=== PATIENT | female | born 1940 | race Caucasian/White ===

== ENCOUNTER 2017-07-14 13:22 | Inpatient (IN) | payer MEDICARE, BC ==
[2017-07-14] VITALS (8 sets, daily range): BP systolic 106–155; BP diastolic 62–85; PULSE 95–126; RESP 20–26; TEMP 98.7; O2SAT 88–95
[~2017-07-14 13:22] MED LIST: ASPI81 PO; GLAUCOMA DROPS; LISI2.5T3 PO; LOVA10TA; PRED20 PO; RANI150 PO; ZYRT10TA12 PO
[2017-07-14] MEDS ORDERED: LOVA10TA PO (13:38)
[2017-07-14] MEDS ORDERED: ASPI-516 CHEW (13:38)
[2017-07-14] MEDS ORDERED: CHOL5000 PO (13:38)
--- NOTE | 2017-07-14 13:39 | PD ---
HPI Chief Complaint: Respiratory Symptoms Time Seen by Provider: 13:25 Travel History International Travel<30 days: No Contact w/Intl Traveler<30days: No Traveled to known affect area: No History of Present Illness HPI 76-year-old female is complaining of shortness of breath for the last 2-3 days. She does not recall having dyspnea before. She stopped smoking about a year ago. She has no history of congestive heart failure or coronary artery disease. She does take lovastatin and aspirin. He has been having pain in her right shoulder for the last 2 weeks. When asked to indicate the site of pain she actually indicates the right side of the trapezius muscle. She has a history of breast cancer several years ago that was treated with excision and radiation COUNT INCLUDES THE [facility] Past Medical History Cancer: Yes (LEFT BREAST) Diminished Hearing: No Past Surgical History Appendectomy: Yes Other Surgery: Yes (FOOT SURGERY) Social History Alcohol Use: Yes (RARE) Tobacco Use: No (QUIT 03/2009) Substance Use: No Allergies-Medications (Allergen,Severity, Reaction): Coded Allergies: No Known Allergies (Verified Adverse Reaction, Unknown, 07/14/17) Reported Meds & Prescriptions Reported Meds & Active Scripts Active Reported Vitamin D3 (Cholecalciferol) 5,000 Unit Cap 5,000 Units PO DAILY Aspirin 81 Mg Chew 81 Mg CHEW DAILY Lovastatin 10 Mg Tab Unknown Dose PO DAILY Review of Systems General / Constitutional: No: Fever, Chills Eyes: No: Diploplia, Drainage HENT: No: Headaches, Vertigo Cardiovascular: No: Chest Pain or Discomfort, Palpitations Respiratory: Positive: Shortness of Breath Gastrointestinal: No: Vomiting, Diarrhea Genitourinary: No: Urgency, Frequency Musculoskeletal: Positive: Myalgias, No: Arthralgias Skin: No Rash Neurologic: No: Weakness Endocrine: No: Heat Intolerance Hematologic/Lymphatic: No: Easy Bruising Physical Exam Narrative GENERAL: Well-developed female. Saturation is 90% on arrival SKIN: Focused skin assessment warm/dry. HEAD: Atraumatic. Normocephalic. EYES: Pupils equal and round. No scleral icterus. No injection or drainage. ENT: No nasal bleeding or discharge. Mucous membranes pink and moist. NECK: Trachea midline. No JVD. CARDIOVASCULAR: Regular rate and rhythm. No murmur appreciated. RESPIRATORY: No accessory muscle use. Clear to auscultation. Breath sounds equal bilaterally. GASTROINTESTINAL: Abdomen soft, non-tender, nondistended. Hepatic and splenic margins not palpable. MUSCULOSKELETAL: No obvious deformities. No clubbing. No cyanosis. No edema. NEUROLOGICAL: Awake and alert. No obvious cranial nerve deficits. Motor grossly within normal limits. Normal speech. PSYCHIATRIC: Appropriate mood and affect; insight and judgment normal. Data Data Last Documented VS Vital Signs Date Time Temp Pulse Resp B/P (MAP) Pulse Ox O2 Delivery O2 Flow Rate FiO2 07/14/17 14:25 115 22 106/62 (77) 94 Nasal Cannula 2.00 07/14/17 13:33 98.7 Orders Orders Complete Blood Count With Diff (07/14/17 13:34) Comprehensive Metabolic Panel (07/14/17 13:34) Troponin I (07/14/17 13:34) B-Type Natriuretic Peptide (07/14/17 13:34) Prothrombin Time / Inr (Pt) (07/14/17 13:34) Act Partial Throm Time (Ptt) (07/14/17 13:34) Urinalysis - C+S If Indicated (07/14/17 13:34) Chest, Single Ap (07/14/17 13:34) Albuterol-Ipratropium Neb (Duoneb Neb) (07/14/17 13:45) Admit Order (Ed Use Only) (07/14/17 14:29) Labs Laboratory Tests Test 07/14/17 13:50 White Blood Count 12.8 TH/MM3 Red Blood Count 3.93 MIL/MM3 Hemoglobin 10.2 GM/DL Hematocrit 31.9 % Mean Corpuscular Volume 81.2 FL Mean Corpuscular Hemoglobin 26.0 PG Mean Corpuscular Hemoglobin Concent 31.9 % Red Cell Distribution Width 13.7 % Platelet Count 445 TH/MM3 Mean Platelet Volume 7.6 FL Neutrophils (%) (Auto) 84.4 % Lymphocytes (%) (Auto) 7.3 % Monocytes (%) (Auto) 5.8 % Eosinophils (%) (Auto) 0.3 % Basophils (%) (Auto) 2.2 % Neutrophils # (Auto) 10.9 TH/MM3 Lymphocytes # (Auto) 0.9 TH/MM3 Monocytes # (Auto) 0.7 TH/MM3 Eosinophils # (Auto) 0.0 TH/MM3 Basophils # (Auto) 0.3 TH/MM3 CBC Comment DIFF FINAL Differential Comment Prothrombin Time 10.8 SEC Prothromb Time International Ratio 1.1 RATIO Activated Partial Thromboplast Time 25.4 SEC Blood Urea Nitrogen 8 MG/DL Creatinine 0.51 MG/DL Random Glucose 293 MG/DL Total Protein 7.6 GM/DL Albumin 2.5 GM/DL Calcium Level 9.2 MG/DL Alkaline Phosphatase 118 U/L Aspartate Amino Transf (AST/SGOT) 11 U/L Alanine Aminotransferase (ALT/SGPT) 28 U/L Total Bilirubin 0.2 MG/DL Sodium Level 133 MEQ/L Potassium Level 3.4 MEQ/L Chloride Level 92 MEQ/L Carbon Dioxide Level 35.6 MEQ/L Anion Gap 5 MEQ/L Estimat Glomerular Filtration Rate 118 ML/MIN Troponin I 0.04 NG/ML [facility] Medical Decision Making Medical Screen Exam Complete: Yes Emergency Medical Condition: Yes Medical Record Reviewed: Yes Differential Diagnosis Differential includes pneumonia, CHF, COPD exacerbation Narrative Course Chest x-ray shows a large mass in the right side of the chest adjacent to the trachea which measures 10 x 7 cm. There is deviation of the trachea to the left. Patient requires CT to further characterize this mass. At this time our CT is not functional. The patient will need to be admitted for treatment of her dyspnea and further evaluation of this lung mass. She will be transferred to [facility] Diagnosis Primary Impression: Lung mass Additional Impression: Dyspnea Admitting Information Admitting Physician Requests: Admit Nick Kan MD Jul 14, 2017 13:39
[2017-07-14] MEDS ORDERED: RESP: ALBUTEROL 2.5 MG/IPRATROPIUM 0.5 MG NEB (SCH) NEB ONE (13:45)
[2017-07-14 14:03] LABS: AUTOMATED NEUTROPHIL # 10.9 TH/MM3 (1.8-7.7); BASOPHIL # 0.3 TH/MM3 (0-0.2); BASOPHIL % 2.2 % (0.0-2.0); EOSINOPHIL % 0.3 % (0.0-4.0); HEMATOCRIT 31.9 % (35.0-46.0); HEMOGLOBIN 10.2 GM/DL (11.6-15.3); LYMPH % 7.3 % (9.0-44.0); LYMPHOCYTE # 0.9 TH/MM3 (1.0-4.8); MEAN CELL VOLUME 81.2 FL (80.0-100.0); MEAN CORPUSCULAR HGB CONC 31.9 % (32.0-36.0); MEAN PLATELET VOLUME 7.6 FL (7.0-11.0); MONO % 5.8 % (0.0-8.0); MONOCYTE # 0.7 TH/MM3 (0-0.9); NEUT % 84.4 % (16.0-70.0); PLATELET COUNT 445 TH/MM3 (150-450); RED BLOOD COUNT 3.93 MIL/MM3 (4.00-5.30); RED CELL DISTRIBUTION WIDTH 13.7 % (11.6-17.2); WHITE BLOOD COUNT 12.8 TH/MM3 (4.0-11.0)
--- NOTE | 2017-07-14 14:15 | RADRPT ---
EXAM DATE/TIME: 07/14/2017 13:43 [facility] COMPARISON: No previous studies available for comparison. INDICATIONS : Short of breath MEDICAL HISTORY : Carcinoma, breast. SURGICAL HISTORY : Left clavicle hardware ENCOUNTER: Initial ACUITY: 3 days PAIN SCORE: 1/10 LOCATION: Bilateral chest FINDINGS: Study is abnormal with enlarged soft tissue mass right chest with adjacent one centimeter lung nodule . Left lung is clear. The heart and pulmonary vascularity are normal. The portion of the bony skelet on visualized is unremarkable. CONCLUSION: Mass right chest measures approximately 10 cm x [address] scan of the chest with contrast is suggested Benito Villa MD FACR on July 14, 2017 at 14:11 Board Certified Radiologist. This report was verified electronically.
[2017-07-14 14:18] LABS: CHLORIDE 92 MEQ/L (98-107); SODIUM (NA) 133 MEQ/L (136-145)
[2017-07-14 14:21] LABS: CALCIUM 9.2 MG/DL (8.5-10.1)
[2017-07-14 14:22] LABS: ALBUMIN 2.5 GM/DL (3.4-5.0); BICARBONATE 35.6 MEQ/L (21.0-32.0); BLOOD UREA NITROGEN 8 MG/DL (7-18); GLUCOSE,RANDOM 293 MG/DL (74-106)
[2017-07-14 14:24] LABS: INTERNATIONAL NORMALIZED RATIO 1.1 RATIO; PROTHROMBIN TIME - PATIENT 10.8 SEC (9.8-11.6)
[2017-07-14 14:25] LABS: ALT (GPT) 28 U/L (10-53); AST (GOT) 11 U/L (15-37); CREATININE 0.51 MG/DL (0.50-1.00); GLOMERULAR FILTRATION RATE 118 ML/MIN (>89)
[2017-07-14 14:26] LABS: TOTAL BILIRUBIN ADULT 0.2 MG/DL (0.2-1.0)
[2017-07-14 14:27] LABS: TOTAL PROTEIN 7.6 GM/DL (6.4-8.2)
[2017-07-14 14:28] LABS: ALKALINE PHOSPHATASE 118 U/L (45-117)
[2017-07-14 14:30] LABS: TROPONIN I 0.04 NG/ML (0.02-0.05)
[2017-07-14] MEDS ORDERED: ONDANSETRON HCL 4 MG/2 ML VIAL IVP PRN (16:30)
[2017-07-14] MEDS ORDERED: NALOXONE HCL 0.4 MG/ML AMP IV PUSH PRN (16:30)
[2017-07-14] MEDS: SODIUM CHLORIDE 0.9% FLUSH 10 ML FLUSH IV FLUSH SCH (21:23)
[2017-07-14 23:05] LABS: BILIRUBIN, URINE NEG (NEG); BLOOD, URINE SMALL (NEG); GLUCOSE,URINE 100 mg/dL (NEG); KETONE, URINE NEG (NEG); NITRITE,URINE POS (NEG); PH, URINE 5.5 (5.0-8.5); URINE COLOR YELLOW (YELLW/STRAW); URINE LEUKOCYTE ESTERASE MOD (NEG)
[2017-07-14 23:12] LABS: BACTERIA, URINE MANY /hpf; RBC, URINE 0-3 /hpf (0-3); SQUAMOUS EPITHELIAL CELL URINE > 8 /hpf (0-5); WBC, URINE 100-200 /hpf (0-5)
[2017-07-14 23:13] LABS: MUCUS URINE MOD /lpf (OCC)
[2017-07-15] VITALS (10 sets, daily range): BP systolic 113–159; BP diastolic 59–80; PULSE 110–126; RESP 17–20; TEMP 98–100; O2SAT 76–95
--- NOTE | 2017-07-15 01:47 | RADRPT ---
EXAM DATE/TIME: 07/15/2017 00:48 [facility] COMPARISON: CHEST SINGLE AP, July 14, 2017, 13:43. INDICATIONS : Abnormal chest xray. Mass. Shortness of breath. RADIATION DOSE: 18.39 CTDIvol (mGy) MEDICAL HISTORY : Carcinoma, breast. SURGICAL HISTORY : left clavicle ENCOUNTER: Initial ACUITY: 1 day PAIN SCALE: 7/10 LOCATION: Right chest TECHNIQUE: Volumetric scanning of the chest was performed. Using automated exposure control and adjustment of t he mA and/or kV according to patient size, radiation dose was kept as low as reasonably achievable to obtain optimal diagnostic quality images. DICOM format image data is available electronically for r eview and comparison. Follow-up recommendations for detected pulmonary nodules are based at a minimum on nodule size and pa tient risk factors according to Fleischner Society Guidelines. FINDINGS: The examination is abnormal demonstrating a large mass in the medial upper right lung measuring 10.0 x 5.5 cm. Examination performed without contrast and there is loss of delineation between the mass i n the right pulmonary artery. The mass appears to extend into the superior mediastinum. There is al so a pretracheal mass which measures 4.3 cm in superior/inferior extent and 3.2 cm in oblique dimensi on probably representing a mediastinal lymph node. There is a small right pleural effusion. In the left lung, there are a few small subpleural cysts. Wide windows for bony detail demonstrate the osse ous structures are grossly intact without evidence of lytic or sclerotic lesions. CONCLUSION: Right upper lung mass measures in excess of 10 cm and is highly suspicious for malignancy. There is also a 4 cm pretracheal mediastinal mass. Sravan Blanco MD on July 15, 2017 at 1:42 Board Certified Radiologist. This report was verified electronically.
[2017-07-15] MEDS: SODIUM CHLORIDE 0.9% FLUSH 10 ML FLUSH IV FLUSH PRN (03:51)
[2017-07-15] MEDS: RESP: ALBUTEROL 2.5 MG/IPRATROPIUM 0.5 MG NEB (PRN) NEB (04:25)
[2017-07-15 06:55] LABS: AUTOMATED NEUTROPHIL # 9.5 TH/MM3 (1.8-7.7); BASOPHIL % 0.1 % (0.0-2.0); EOSINOPHIL % 0.4 % (0.0-4.0); HEMATOCRIT 30.7 % (35.0-46.0); HEMOGLOBIN 9.8 GM/DL (11.6-15.3); LYMPH % 6.9 % (9.0-44.0); LYMPHOCYTE # 0.8 TH/MM3 (1.0-4.8); MEAN CELL VOLUME 81.6 FL (80.0-100.0); MEAN CORPUSCULAR HEMOGLOBIN 25.9 PG (27.0-34.0); MEAN CORPUSCULAR HGB CONC 31.8 % (32.0-36.0); MEAN PLATELET VOLUME 7.5 FL (7.0-11.0); MONO % 9.2 % (0.0-8.0); NEUT % 83.4 % (16.0-70.0); PLATELET COUNT 445 TH/MM3 (150-450); RED BLOOD COUNT 3.77 MIL/MM3 (4.00-5.30); RED CELL DISTRIBUTION WIDTH 14.2 % (11.6-17.2); WHITE BLOOD COUNT 11.3 TH/MM3 (4.0-11.0)
[2017-07-15 07:04] LABS: CALCIUM 8.9 MG/DL (8.5-10.1)
[2017-07-15 07:05] LABS: BICARBONATE 36.4 MEQ/L (21.0-32.0)
[2017-07-15 07:08] LABS: CREATININE 0.47 MG/DL (0.50-1.00)
--- NOTE | 2017-07-15 10:08 | HHI.HP ---
HPI Service [facility] Primary Care Physician Non-Staff Admission Diagnosis LUNG MASS, DYSPNEA Diagnoses: (1) Dyspnea (2) Lung mass Chief Complaint: Shortness of breath Travel History International Travel<30 Days: No Contact w/Intl Traveler <30 Da: No Traveled to Known Affected Are: No History of Present Illness This is a pleasant 76-year-old female patient with a known medical history of left breast cancer with radiation and lumpectomy who presented to the ED with complaints of shortness of breath for the last 3 days. Patient states that she has actually had right shoulder pain for the past few weeks, has been seeing a chiropractor and getting adjustments with no relief of pain. She also states that over the past few days she has developed a productive cough with white/ yellow phlegm and increasing dyspnea with activity. Patient does not use oxygen at home. Patient denies any recent illness including fever, chills, abdominal pain, nausea, vomiting, diarrhea dysuria. Patient and her are down here visiting from [place], patient last saw her PCP in February with no reports of any medication changes. Patient does admit to a history of left breast cancer with radiation and lumpectomy 10 years ago. Patient no longer follows with oncologist. Denies any current tobacco use, states she quit roughly a year ago. Review of Systems Constitutional: DENIES: Fever, Chills Eyes: DENIES: Blurred vision, Diplopia Respiratory: COMPLAINS OF: Cough, Sputum production, Shortness of breath Cardiovascular: DENIES: Chest pain, Palpitations Gastrointestinal: DENIES: Abdominal pain, Black stools, Bloody stools, Constipation, Diarrhea, Nausea, Vomiting Musculoskeletal: COMPLAINS OF: Joint pain (Right shoulder) Neurologic: DENIES: Abnormal gait Psychiatric: COMPLAINS OF: Anxiety Except as stated in HPI: all other systems reviewed are Neg Past Family Social History Past Medical History Left breast cancer with radiation lumpectomy. Hyperlipidemia Borderline diabetes Past Surgical History Appendectomy Multiple unspecified left foot surgeries Multiple left elbow surgeries Reported Medications Active Reported Vitamin D3 (Cholecalciferol) 5,000 Unit Cap 5,000 Units PO DAILY Aspirin 81 Mg Chew 81 Mg CHEW DAILY Lovastatin 10 Mg Tab Unknown Dose PO DAILY Allergies: Coded Allergies: No Known Allergies (Verified Allergy, Unknown, 07/14/17) Active Ordered Medications Current Medications Medications (Trade) Dose Ordered Sig/Jennifer Route Start Time Stop Time Status Last Admin (NS Flush) 2 ml UNSCH PRN IV FLUSH 07/14/17 16:30 07/15/17 03:51 (NS Flush) 2 ml BID IV FLUSH 07/14/17 21:00 07/14/17 21:23 (Zofran Inj) 4 mg Q6H PRN IVP 07/14/17 16:30 (Narcan Inj) 0.4 mg UNSCH PRN IV PUSH 07/14/17 16:30 (Duoneb Neb) 1 ampule Q2HR NEB PRN NEB 07/14/17 17:45 07/15/17 04:25 (Vitamin D3) 5,000 units DAILY PO 07/15/17 10:00 Ceftriaxone Sodium 1000 mg/ Sodium Chloride 100 ml @ 200 mls/hr Q24H IV 07/15/17 10:00 Family History Mother has a history of breast cancer. Social History Patient denies any tobacco use, states she quit 1 year ago. Admits to rare alcohol use. Denies illicit drug use. Physical Exam Vital Signs Vital Signs Date Time Temp Pulse Resp B/P (MAP) Pulse Ox O2 Delivery O2 Flow Rate FiO2 07/15/17 08:35 92 Nasal Cannula 6.00 07/15/17 08:00 98.9 121 19 159/78 (105) 90 07/15/17 07:59 90 Nasal Cannula 6.00 07/15/17 07:50 76 21 07/15/17 04:33 98.1 118 17 120/60 (80) 93 07/15/17 03:00 07/15/17 02:55 122 18 153/80 (104) 92 Nasal Cannula 2.00 07/15/17 00:00 99.7 121 20 146/80 (102) 94 Nasal Cannula 2.00 07/15/17 00:00 121 18 94 Nasal Cannula 2.00 07/14/17 21:05 117 20 155/85 (108) 91 Nasal Cannula 2.00 07/14/17 21:05 117 20 91 Nasal Cannula 2.00 07/14/17 19:10 94 Nasal Cannula 2.00 07/14/17 17:54 112 20 135/77 (96) 93 Nasal Cannula 2.00 07/14/17 17:03 112 20 140/80 (100) 90 Nasal Cannula 2.00 07/14/17 15:52 95 20 117/78 (91) 95 07/14/17 15:20 110 20 131/73 (92) 93 Nasal Cannula 2.00 07/14/17 14:25 115 22 106/62 (77) 94 Nasal Cannula 2.00 07/14/17 13:33 98.7 126 26 135/73 (93) 88 Physical Exam GENERAL: Well-developed, well-nourished patient in NAD. On supplemental O2. SKIN: Warm and dry. No rash. HEAD: Normocephalic. Atraumatic. EYES: Pupils equal and round. No scleral icterus. No injection or drainage. ENT: No nasal bleeding or discharge. Mucous membranes pink and moist. NECK: Supple. Trachea midline. CARDIOVASCULAR: Regular rate and rhythm. S1, S2 noted. No murmur appreciated. RESPIRATORY: No accessory muscle use. Clear to auscultation. Breath sounds equal bilaterally. GASTROINTESTINAL: Abdomen soft, non-tender, nondistended. Normoactive bowel sounds x4. MUSCULOSKELETAL: No obvious deformities. Extremities without clubbing, cyanosis , or edema. Right shoulder tenderness to palpation. NEUROLOGICAL: Awake and alert. No obvious cranial nerve deficits. Motor grossly within normal limits. 5/5 muscle strength in bilateral upper and lower extremities. Normal speech. PSYCHIATRIC: Appropriate mood and affect; insight and judgment normal. Laboratory Laboratory Tests Test 07/14/17 13:50 07/14/17 17:50 07/14/17 22:50 07/15/17 06:22 White Blood Count 12.8 Red Blood Count 3.93 Hemoglobin 10.2 Hematocrit 31.9 Mean Corpuscular Volume 81.2 Mean Corpuscular Hemoglobin 26.0 Mean Corpuscular Hemoglobin Concent 31.9 Red Cell Distribution Width 13.7 Platelet Count 445 Mean Platelet Volume 7.6 Neutrophils (%) (Auto) 84.4 Lymphocytes (%) (Auto) 7.3 Monocytes (%) (Auto) 5.8 Eosinophils (%) (Auto) 0.3 Basophils (%) (Auto) 2.2 Neutrophils # (Auto) 10.9 Lymphocytes # (Auto) 0.9 Monocytes # (Auto) 0.7 Eosinophils # (Auto) 0.0 Basophils # (Auto) 0.3 CBC Comment DIFF FINAL Differential Comment Prothrombin Time 10.8 Prothromb Time International Ratio 1.1 Activated Partial Thromboplast Time 25.4 Blood Urea Nitrogen 8 7 Creatinine 0.51 0.47 Random Glucose 293 304 Total Protein 7.6 Albumin 2.5 Calcium Level 9.2 8.9 Alkaline Phosphatase 118 Aspartate Amino Transf (AST/SGOT) 11 Alanine Aminotransferase (ALT/SGPT) 28 Total Bilirubin 0.2 Sodium Level 133 133 Potassium Level 3.4 3.4 Chloride Level 92 91 Carbon Dioxide Level 35.6 36.4 Anion Gap 5 6 Estimat Glomerular Filtration Rate 118 130 Troponin I 0.04 B-Type Natriuretic Peptide 400 Blood Gas Puncture Site LT RADIAL Blood Gas Patient Temperature 98.6 Blood Gas HCO3 35 Blood Gas Base Excess 10.8 Blood Gas Oxygen Saturation 88 Arterial Blood pH 7.48 Arterial Blood Partial Pressure CO2 47 Arterial Blood Partial Pressure O2 58 Arterial Blood Oxygen Content 12.9 Arterial Blood Carboxyhemoglobin 2.0 Arterial Blood Methemoglobin 0.8 Blood Gas Hemoglobin 10.4 Oxygen Delivery Device NONE Blood Gas Inspired Oxygen 21 Urine Color YELLOW Urine Turbidity CLOUDY Urine pH 5.5 Urine Specific [place] GREATER/EQUAL 1.030 Urine Protein TRACE Urine Glucose (UA) 100 Urine Ketones NEG Urine Occult Blood SMALL Urine Nitrite POS Urine Bilirubin NEG Urine Urobilinogen 0.2 Urine Leukocyte Esterase MOD Urine RBC 0-3 Urine WBC 100-200 Urine Squamous Epithelial Cells > 8 Urine Bacteria MANY Urine Mucus MOD Microscopic Urinalysis Comment CULTURE INDICATED Test 07/15/17 08:45 White Blood Count 11.3 Red Blood Count 3.77 Hemoglobin 9.8 Hematocrit 30.7 Mean Corpuscular Volume 81.6 Mean Corpuscular Hemoglobin 25.9 Mean Corpuscular Hemoglobin Concent 31.8 Red Cell Distribution Width 14.2 Platelet Count 445 Mean Platelet Volume 7.5 Neutrophils (%) (Auto) 83.4 Lymphocytes (%) (Auto) 6.9 Monocytes (%) (Auto) 9.2 Eosinophils (%) (Auto) 0.4 Basophils (%) (Auto) 0.1 Neutrophils # (Auto) 9.5 Lymphocytes # (Auto) 0.8 Monocytes # (Auto) 1.0 Eosinophils # (Auto) 0.0 Basophils # (Auto) 0.0 CBC Comment DIFF FINAL Differential Comment Date/Time Source Procedure Growth Status 07/14/17 22:50 Urine Clean Catch Urine Culture Pending Received Result Diagram: 07/15/17 0845 07/15/17 0622 Imaging Last Impressions Chest CT 07/15/17 0000 Signed Impressions: Service Date/Time: Saturday, July 15, 2017 00:48 - CONCLUSION: Right upper lung mass measures in excess of 10 cm and is highly suspicious for malignancy. There is also a 4 cm pretracheal mediastinal mass. Sravan Blanco MD Chest X-Ray 07/14/17 1334 Signed Impressions: Service Date/Time: Friday, July 14, 2017 13:43 - CONCLUSION: Mass right chest measures approximately 10 cm x [address] scan of the chest with contrast is suggested Benito Villa MD FACR Septic Shock Reassessment Septic shock perfusion: reassessment completed Caprini VTE Risk Assessment Caprini VTE Risk Assessment: Mod/High Risk (score >= 2) Caprini Risk Assessment Model Point Value = 1 Point Value = 2 Point Value = 3 Point Value = 5 Age 41-60 Minor surgery BMI > 25 kg/m2 Swollen legs Varicose veins or History of unexplained or recurrent spontaneous Oral contraceptives or hormone replacement Sepsis (< 1 month) Serious lung disease, including pneumonia (< 1 month) Abnormal pulmonary function Acute myocardial infarction Congestive heart failure (< 1 month) History of inflammatory bowel disease Medical patient at bed rest Age 61-74 Arthroscopic surgery Major open surgery (> 45 min) Laparoscopic surgery (> 45 min) Malignancy Confined to bed (> 72 hours) Immobilizing plaster cast Central venous access Age >= 75 History of VTE Family history of VTE Factor V Leiden Prothrombin [id number] Lupus anticoagulant Anticardiolipin antibodies Elevated serum homocysteine Heparin-induced thrombocytopenia Other congenital or acquired thrombophilia Stroke (< 1 month) Elective arthroplasty Hip, pelvis, or leg fracture Acute spinal cord injury (< 1 month) Prophylaxis Regimen Total Risk Factor Score Risk Level Prophylaxis Regimen 0-1 Low Early ambulation 2 Moderate Order ONE of the following: *Sequential Compression Device (SCD) *Heparin 5000 units SQ BID 3-4 Higher Order ONE of the following medications: *Heparin 5000 units SQ TID *Enoxaparin/Lovenox 40 mg SQ daily (WT < 150 kg, CrCl > 30 mL/min) *Enoxaparin/Lovenox 30 mg SQ daily (WT < 150 kg, CrCl > 10-29 mL/min) *Enoxaparin/Lovenox 30 mg SQ BID (WT < 150 kg, CrCl > 30 mL/min) AND/OR *Sequential Compression Device (SCD) 5 or more Highest Order ONE of the following medications: *Heparin 5000 units SQ TID (Preferred with Epidurals) *Enoxaparin/Lovenox 40 mg SQ daily (WT < 150 kg, CrCl > 30 mL/min) *Enoxaparin/Lovenox 30 mg SQ daily (WT < 150 kg, CrCl > 10-29 mL/min) *Enoxaparin/Lovenox 30 mg SQ BID (WT < 150 kg, CrCl > 30 mL/min) AND *Sequential Compression Device (SCD) Assessment and Plan Problem List: (1) Dyspnea ICD Code: R06.00 - Dyspnea, unspecified Status: Acute (2) Lung mass ICD Code: R91.8 - Other nonspecific abnormal finding of lung field Status: Acute Assessment and Plan This is a pleasant 76-year-old female patient with a known medical history of left breast cancer with radiation and lumpectomy who presented to the ED with complaints of shortness of breath for the last 3 days. Right lung mass highly suspicious for malignancy with associated dyspnea and hypoxia Chest x-ray and chest CT reviewed showing right upper lung mass measuring greater than 10 cm, highly suspicious for malignancy. Also a 4 cm pretracheal mediastinal mass noted. Pulmonology consulted, appreciate input recommendations. IR consulted for CT guided lung biopsy. Consult placed to medical oncology, appreciate input recommendations. Supplemental O2 as needed. Patient requiring nasal cannula 6 L at this time. Duo nebs as needed for dyspnea. Supportive care. Abnormal UA: With moderate amount of leukocyte esterase and white blood cells. Await urine culture. Continue IV Rocephin for now. Hypokalemia: Potassium 3.4. Replacement ordered. Continue to monitor BMP. Elevated random glucose on presentation: 304. Patient does report a history of borderline diabetes. hemoglobin A1c ordered and pending. Follow. DVT prophylaxis: SCDs. Linda Lambert Jul 15, 2017 10:08
--- NOTE | 2017-07-15 11:58 | MB ---
cc: Brady Shah MD DATE OF CONSULT: 07/15/2017 REQUESTING PHYSICIAN: Dr. Lew. REASON FOR CONSULTATION: Evaluate for lung mass. HISTORY OF PRESENT ILLNESS: Ms. Leon is a pleasant 76-year-old female from [place] who comes over here for the winter. She has been having pain in the right shoulder for the last 1 month or so. She saw some chiropractor, had some procedure done, did not make any difference. She was also complaining of shortness of breath for the last 2-3 days. That is why she decided to come to the emergency room. She denies any cough or sputum production. No fever, chills. No night sweats, no hemoptysis. She does admit to losing some weight recently because of her poor appetite with this. When she came to the hospital, she had a CT scan of the chest done, which shows that she has a large mass in the right upper lobe measuring about 10 x 5.5 cm. She also has a pretracheal mass, which measures 4.3 cm. LABORATORY DATA: CBC showed WBC count 11.3, hemoglobin 9.8, hematocrit 30.7, MCV 81, platelet count 445. Sodium 133, potassium 3.4, chloride 91, CO2 36, BUN 7, creatinine 0.47. INR is 1.1. PAST MEDICAL HISTORY: Significant for history of CA of the breast, status post lumpectomy and she took radiation treatment in this area. Since then, she took tamoxifen for 5 years. Her radiation treatment was around 2008. MEDICATIONS: She is currently taking Rocephin 1 g a day, albuterol and Atrovent nebulizer treatments, Zofran p.r.n. ALLERGIES: NO KNOWN DRUG ALLERGIES. SOCIAL HISTORY: She has a history of smoking for more than 30 years, 1 pack a day, which she quit. She drinks socially. She used to work before. She is retired. FAMILY HISTORY: She is . She has 2 children. REVIEW OF SYSTEMS: Normally she is apparently active. Recently lost some weight. No hemoptysis. Known asthma, COPD, emphysema. No DVT, pulmonary embolism. PHYSICAL EXAMINATION: Well-built, well-nourished, elderly female, not in acute distress. Blood pressure 159/78, heart rate 120, respirations 20, temperature 98.9. HEENT: Pupils are equal and reactive to light. Oral mucosa, nasal mucosa normal. NECK: Supple. JVD not raised. CHEST: Good breath sounds bilaterally. She has no rhonchus. CARDIOVASCULAR: S1, S2 normal. ABDOMEN: Benign. EXTREMITIES: No edema. IMPRESSION: 1. Large right upper lobe mass. 2. Pretracheal lymph node. 3. Right shoulder pain. 4. History of nicotine use. 5. Carcinoma of the breast, status post lumpectomy and radiation treatment. PLAN: I discussed with the patient she will need a CT-guided biopsy. Earlier, she was thinking going back to [place] and have the workup done. Now, she agrees to have CT Guided lung biopsy done over there. I explained to her procedure and the complications. She understands well and wants to proceed with it. I will consult interventional radiology for CT-guided biopsy. Thank you, Dr. Lew, for this consult. MD KARON Mayer/BIENVENIDO , 11:25 AM , 11:57 AM VINAY
[2017-07-15] MEDS ORDERED: POTASSIUM CHLORIDE 10 MEQ CONTROLLED RELEASE TAB PO ONE (12:00)
[2017-07-15] MEDS: cefTRIAXone INJ 1,000 MG in SODIUM CHLORIDE 0.9% INJ 100 ML IV SCH (12:12)
[2017-07-15] MEDS: SODIUM CHLORIDE 0.9% FLUSH 10 ML FLUSH IV FLUSH SCH ×2 (12:12→22:09)
[2017-07-15] MEDS: CHOLECALCIFEROL (VIT D3) 5000 UNIT CAP PO SCH (12:12)
[2017-07-15] MEDS ORDERED: GLUCAGON 1 MG/ML VIAL OTHER PRN (12:15)
[2017-07-15] MEDS ORDERED: DEXTROSE 50% IN WATER 50 ML VIAL(D50) IV PUSH PRN (12:15)
--- NOTE | 2017-07-15 16:07 | EKG ---
Date Performed: 07/14/2017 Time Performed: 13:28:44 PTAGE: 76 years EKG: SINUS TACHYCARDIA POSSIBLE LEFT ATRIAL ENLARGEMENT NONSPECIFIC T-WAVE ABNORMALITY ABNORMAL RHYTHM ECG NO PREVIOUS TRACING DOCTOR: Flash Keenan Interpretating Date/Time 07/15/2017 16:05:51
--- NOTE | 2017-07-15 16:17 | PD.RAD ---
Radiology Note IR consulted for biopsy of larg RUL mass. IR team arrived to perform procedure but patient has not been NPO. Will reschedule for tomorrow Francisco Melchor MD Jul 15, 2017 16:16
[2017-07-15 16:36] LABS: HEMOGLOBIN A1C 11.6 % (4.3-6.0)
--- NOTE | 2017-07-15 18:42 | MB ---
cc: Kathryn Omalley MD,Linda KUHN DATE OF CONSULT: 07/15/2017 REFERRING PHYSICIAN: BAM Horton CHIEF COMPLAINT: Linda Lambert requested consultation for Mr. Leon with suspected second primary bronchogenic carcinoma. HISTORY OF PRESENT ILLNESS: Ms. Leon is a 76-year-old woman with history of glaucoma, hypertension, hypercholesterolemia. She has a history of ductal carcinoma in situ of the left breast. She was initially diagnosed 02/17/2009. She had definitive surgery, 03/03/2009. Dr. Leger proceeded to give her radiation while she was wintering in [place] in March 2009. She has been followed by a medical oncologist [place]. She has had no evidence of recurrent disease. She was doing well, but developed a trapezius-type pain. She thought she pulled a muscle. She presented to the emergency room finally on 07/14/2017, when she became short of breath, worsening over the last 2-3 days. She has a history of smoking. She denies any history of coronary artery disease. She still has pain in the right trapezius area. IMAGING STUDIES: CT scan of the chest was performed on 07/15/2017, that showed a right upper lung mass measuring greater than 10 cm, suspicious for malignancy. There is a 4 cm pretracheal mediastinal mass. Her oxygen saturation on admission was 88%. She has been on O2 via nasal cannula and saturation has been maintained above 90%. She is anxious about going home. Her family, her oncologist, her support is at home. She would like to fly back home as it is usually a 3-day drive to [place]. They have a family member who is having their 100th birthday. PAST MEDICAL HISTORY: Left breast DCIS, hyperlipidemia, borderline diabetes, chronic tobacco use, COPD. PAST SURGICAL HISTORY: Appendectomy, left breast lumpectomy and sentinel node biopsy, left elbow surgery, left foot surgery. FAMILY HISTORY: Mother had breast cancer in her 60s. Father of complication of orthopedic surgeries. ALLERGIES: NO KNOWN DRUG ALLERGIES. SOCIAL HISTORY: She is , lives with her . She quit smoking a year ago. She drinks alcohol rarely. Denies any illicit drug use. CURRENT MEDICATIONS: NovoLog p.r.n., vitamin D3, ceftriaxone, DuoNebs, Zofran p.r.n. PHYSICAL EXAMINATION: VITAL SIGNS: Temperature 98.0, heart rate 120, respiratory rate 18, blood pressure 113/59, saturation 94%. GENERAL: Ms. Leon is a well-developed, well-nourished, elderly woman in no acute distress. She is resting comfortably, lying on the right side. She has some spasm over the trapezius muscle on the right. HEENT: Her pupils are round, reactive to light and accommodation. Oropharynx is clear. NECK: Supple. LUNGS: With diminished breath sounds in the right upper lung. CARDIOVASCULAR: Reveals tachycardia. ABDOMEN: Benign. EXTREMITIES: Lower extremities with no edema. NEUROLOGIC: Nonfocal. LABORATORY DATA: Significant for mild normocytic anemia, hemoglobin of 9.8. Sodium is 133, potassium 3.4, BUN and creatinine are normal. Beta natriuretic peptide of 400. PT, PTT are normal. ASSESSMENT AND PLAN: Ms. Leon is a 76-year-old woman with multiple medical problems. She has a history of ductal carcinoma in situ, treated, with no evidence of recurrence, diagnosed in 2008. She has long history of tobacco use and quit a year ago. She has had progressive symptoms from trapezius muscle pain to increasing shortness of breath prior to coming in for consultation. She is found to have right upper lung mass with pretracheal lymphadenopathy. We discussed the concern for bronchogenic carcinoma. A CT-guided biopsy is scheduled for tomorrow. I will consult social work to assist patient getting home oxygen. She would like to travel home and get her treatment at home, which is quite reasonable. I recommend she proceed with a CT-guided biopsy to assist with diagnosis. She plans to contact her family physician to give her a referral to the medical oncologist. She has been discharged from their clinic now given that her breast cancer diagnosis was 2008. We can assist her in coordinating care. She would like to travel back home where her support system is. If her saturation can be maintained over 90%, she may be able to fly back. I am not certain of the criteria by the airlines. She may be able to get from a home care company oxygen tank that is safe for flight. In this manner, she could travel 2 hours to [place] from [place] rather than drive 3 days. Her questions were answered to her satisfaction. We will assist her in coordinating her care. From an oncologic standpoint, further recommendation regarding treatment of her lung cancer will depend on the final pathology. [place]. MD CRISTOBAL Norman/DERECK , 05:42 PM , 06:39 PM VINAY
[2017-07-15] MEDS: INSULIN ASPART SUPPLEMENTAL SCALE SQ SCH ×2 (19:59→22:09)
[2017-07-15] MEDS ORDERED: ACETAMINOPHEN 325 MG TAB PO PRN (23:00)
[2017-07-16] VITALS (11 sets, daily range): BP systolic 120–154; BP diastolic 58–85; PULSE 112–139; RESP 18–22; TEMP 96.3–99.7; O2SAT 90–100
[2017-07-16 07:00] LABS: AUTOMATED NEUTROPHIL # 11.8 TH/MM3 (1.8-7.7); BASOPHIL % 0.2 % (0.0-2.0); EOSINOPHIL % 0.2 % (0.0-4.0); HEMOGLOBIN 10.1 GM/DL (11.6-15.3); LYMPH % 4.6 % (9.0-44.0); LYMPHOCYTE # 0.6 TH/MM3 (1.0-4.8); MEAN CELL VOLUME 82.1 FL (80.0-100.0); MEAN CORPUSCULAR HGB CONC 31.6 % (32.0-36.0); MEAN PLATELET VOLUME 7.8 FL (7.0-11.0); MONO % 7.5 % (0.0-8.0); NEUT % 87.5 % (16.0-70.0); PLATELET COUNT 432 TH/MM3 (150-450); RED BLOOD COUNT 3.89 MIL/MM3 (4.00-5.30); RED CELL DISTRIBUTION WIDTH 14.4 % (11.6-17.2); WHITE BLOOD COUNT 13.4 TH/MM3 (4.0-11.0)
[2017-07-16 07:23] LABS: BICARBONATE 36.6 MEQ/L (21.0-32.0); CALCIUM 9.3 MG/DL (8.5-10.1); CREATININE 0.5 MG/DL (0.50-1.00)
[2017-07-16] MEDS: INSULIN ASPART SUPPLEMENTAL SCALE SQ SCH ×4 (08:00→21:25)
[2017-07-16] MEDS: CHOLECALCIFEROL (VIT D3) 5000 UNIT CAP PO SCH (09:00)
[2017-07-16] MEDS: SODIUM CHLORIDE 0.9% FLUSH 10 ML FLUSH IV FLUSH SCH ×2 (09:00→21:00)
[2017-07-16] MEDS ORDERED: MIDAZOLAM HCL 2 MG/2 ML VIAL IV ONE (09:40)
[2017-07-16] MEDS: cefTRIAXone INJ 1,000 MG in SODIUM CHLORIDE 0.9% INJ 100 ML IV SCH (10:00)
[2017-07-16] MEDS ORDERED: oxyCODONE/ACETAMINOPHEN 5 MG/325 MG TAB PO PRN (10:00)
--- NOTE | 2017-07-16 10:01 | PD.RAD ---
Post Procedure Progress Note Pre Procedure Diagnosis: (1) Lung mass (2) Dyspnea Post Procedure Diagnosis: (1) Lung mass (2) Dyspnea Procedure Date: Jul 16, 2017 Supervising Radiologist: Lewis Villa Estimated blood loss: 2cc Anesthesia: Local, Conscious Sedation Plan of Activity Patient to Unit: PACU Patient Condition: Poor Additional Comments: CT guided biopsy of the right lung mass completed without difficulty. Two core samples taken (20gauge) NO pneumothorax or other complication on follow up ct post procedure Full dictated report to follow See PACS Report for procedural detail/treatment Lewis Villa MD Jul 16, 2017 10:01
--- NOTE | 2017-07-16 10:23 | HHI.FF ---
Face to Face Verification Diagnosis: (1) Dyspnea (2) Lung mass Home Health Nursing Order: Medical education Signs/symptoms of disease process Oxygen administration education Medication education-adverse effect Wound care and dressing changes Nursing assessment with vital signs I have seen patient Susan Leon on 07/16/17. My clinical findings support the need for the requested home health care services because: Patient has SOB Deconditioned w/ increased weakness Limited ability to care for self I certify that my clinical findings support that this patient is homebound because: Unsteady gait/balance Linda Lambert Jul 16, 2017 10:23
[2017-07-16] MEDS ORDERED: LIDOCAINE 1%/EPINEPHrine 1:100,000 SOLN 30 ML VIAL OTHER ONE (10:57)
--- NOTE | 2017-07-16 11:17 | RADRPT ---
EXAM DATE/TIME: 07/16/2017 10:07 [facility] COMPARISON: CHEST SINGLE AP, July 14, 2017, 13:43. CT THORAX W/O CONTRAST, July 15, 2017, 0:48. INDICATIONS : Post right lung biopsy. MEDICAL HISTORY : Carcinoma, breast. SURGICAL HISTORY : left clavicle ENCOUNTER: Subsequent ACUITY: 1 day PAIN SCORE: 0/10 LOCATION: Right chest FINDINGS: Large right superhilar lung mass is again noted. There is no evidence of pneumothorax following biops y. Asymmetric elevation the right diaphragm is again noted, likely accentuated by expiratory techniqu e. Left lung remains grossly clear. CONCLUSION: No pneumothorax Júnior Rose MD on July 16, 2017 at 11:12 Board Certified Radiologist. This report was verified electronically.
--- NOTE | 2017-07-16 13:25 | RADRPT ---
EXAM DATE/TIME: 07/16/2017 09:21 [facility] COMPARISON: CHEST EXPIRATION ONLY, July 16, 2017, 10:07. CT THORAX W/O CONTRAST, July 15, 2017, 0:48. The INDICATIONS : Right lung mass. SEDATION TIME: 30 minutes BIOPSY SITE: Right lung MEDICATION(S): 1.) 1.5 mg midazolam (Versed) IV 2.) 75 mcg fentanyl (Sublimaze) IV DEVICE(S): 1.) 20 gauge Temno core biopsy needle 2.) 18 gauge Mixon blunt needle MEDICAL HISTORY : Carcinoma, breast. SURGICAL HISTORY : Appendectomy. Left breast lumpectomy. ENCOUNTER: Initial ACUITY: 1 day PAIN SCORE: 0/10 LOCATION: Right chest A total of two core specimen(s) were obtained and sent to the laboratory for pathologic evaluation. PROCEDURE: 1. CT guided lung biopsy. 2. Conscious sedation with continuous EKG and oximetry monitoring. 3. EKG and oximetry remained stable throughout the procedure. Prior to the procedure informed consent was obtained. Any appropriate prior imaging studies were rev iewed. Using automated exposure control and adjustment of the mA and/or kV according to patient size, radiation dose was kept as low as reasonably achievable to obtain optimal diagnostic quality images. DICOM format image data is available electronically for review and comparison. The site was prepped in a sterile fashion. Full sterile technique was used, including cap, mask, fam rile gloves and gown and a large sterile sheet. Hand hygiene and 2% chlorhexidine and/or betadine/al cohol prep was utilized per protocol for cutaneous antisepsis. The skin and subcutaneous tissues wer e infiltrated with local anesthetic solution. With CT guidance the previously identified target was localized. Biopsy was performed using the presc ribed needle as above. Adequate hemostasis was obtained with compression at the puncture site. Follow-up CT scan reveals no pneumothorax. Conscious sedation was performed with the prescribed dosages and duration as above in the presence of an independent trained radiology nurse to assist in the monitoring of the patient. EKG and oximetry remained stable throughout the procedure. The patient tolerated the procedure well and there were no complications. The patient was sent to Radiology Outpatient Unit in stable condition. CONCLUSION: Uncomplicated CT guided biopsy. Lewis Villa MD on July 16, 2017 at 13:22 Board Certified Radiologist. This report was verified electronically.
--- NOTE | 2017-07-16 13:40 | HHI.PR ---
Subjective Remarks Follow-up dyspnea and right lung mass. Patient seen and examined status post lung biopsy. Patient lying in bed sleeping, attempting to wake patient up she is lethargic, with confusion and generalized weakness with speech impairment. A STAT ABG, Head CT and EKG was ordered. Roughly 1 hour after episode patient is now awake and alert and at her normal baseline. Head CT performed which was negative. ABG showing PO2 70. Labs reviewed essentially unremarkable. Vital signs are stable. We will closely continue to monitor. Objective Vitals Vital Signs Date Time Temp Pulse Resp B/P (MAP) Pulse Ox O2 Delivery O2 Flow Rate FiO2 07/16/17 12:07 18 07/16/17 11:50 119 22 132/73 (92) 98 07/16/17 11:50 96.3 117 20 120/65 (83) 93 07/16/17 11:20 120 22 133/74 (93) 100 07/16/17 11:08 Nasal Cannula 6.00 21 07/16/17 10:50 120 22 140/80 (100) 100 07/16/17 10:35 119 22 141/83 (102) 100 07/16/17 10:20 98.2 124 22 144/82 (102) 96 07/16/17 07:50 98.4 139 20 154/85 (108) 90 07/16/17 00:32 18 07/16/17 00:00 99.7 121 18 120/67 (84) 94 07/15/17 20:00 95 Nasal Cannula 6.00 07/15/17 20:00 100.0 126 18 134/77 (96) 95 07/15/17 20:00 95 Nasal Cannula 6.00 07/15/17 15:44 98.0 120 18 113/59 (77) 94 I/O 07/15/17 07/15/17 07/15/17 07/16/17 07/16/17 07/16/17 06:59 14:59 22:59 06:59 14:59 22:59 Intake Total 600 ml 0 ml Balance 600 ml 0 ml Intake Oral 600 ml 0 ml # Voids 2 2 2 2 # Bowel Movements 1 Result Diagram: 07/16/17 0638 07/16/17 0638 Imaging Last Impressions Chest X-Ray 07/16/17 0000 Signed Impressions: Service Date/Time: Sunday, July 16, 2017 10:07 - CONCLUSION: No pneumothorax Júnior Rose MD Chest CT 07/15/17 0000 Signed Impressions: Service Date/Time: Saturday, July 15, 2017 00:48 - CONCLUSION: Right upper lung mass measures in excess of 10 cm and is highly suspicious for malignancy. There is also a 4 cm pretracheal mediastinal mass. Sravan lBanco MD Objective Remarks GENERAL: Well-developed, well-nourished patient in NAD. On supplemental O2. SKIN: Warm and dry. No rash. HEAD: Normocephalic. Atraumatic. EYES: Pupils equal and round. No scleral icterus. No injection or drainage. ENT: No nasal bleeding or discharge. Mucous membranes pink and moist. NECK: Supple. Trachea midline. CARDIOVASCULAR: Regular rate and rhythm. S1, S2 noted. No murmur appreciated. RESPIRATORY: No accessory muscle use. Clear to auscultation. Breath sounds equal bilaterally. GASTROINTESTINAL: Abdomen soft, non-tender, nondistended. Normoactive bowel sounds x4. MUSCULOSKELETAL: No obvious deformities. Extremities without clubbing, cyanosis , or edema. Right shoulder tenderness to palpation. NEUROLOGICAL: Awake and alert. No obvious cranial nerve deficits. Motor grossly within normal limits. 5/5 muscle strength in bilateral upper and lower extremities. Normal speech. PSYCHIATRIC: Appropriate mood and affect; insight and judgment normal. A/P Problem List: (1) Dyspnea ICD Code: R06.00 - Dyspnea, unspecified Status: Acute (2) Lung mass ICD Code: R91.8 - Other nonspecific abnormal finding of lung field Status: Acute Assessment and Plan This is a pleasant 76-year-old female patient with a known medical history of left breast cancer with radiation and lumpectomy who presented to the ED with complaints of shortness of breath for the last 3 days. Right lung mass highly suspicious for malignancy with associated dyspnea and hypoxia Chest x-ray and chest CT reviewed showing right upper lung mass measuring greater than 10 cm, highly suspicious for malignancy. Also a 4 cm pretracheal mediastinal mass noted. Pulmonology consulted, appreciate input recommendations. IR consulted for CT guided lung biopsy, performed today. Consult placed to medical oncology, appreciate input recommendations. Patient desiring to get medical treatment in [place], case management assisting with arrangements. Supplemental O2 as needed. Patient requiring nasal cannula 6 L at this time. Duo nebs as needed for dyspnea. Attempt to wean oxygen as tolerated. ABG done today, CO2 70. Continue to monitor. Supportive care. Urinary tract infection: Urine culture growing Klebsiella pneumonia. Sensitive to Rocephin, continue. Continue IV fluids. Hypokalemia: Potassium 3.4. Improved to 4.3. Monitor. Elevated random glucose on presentation New-onset type 2 diabetes Random glucose 304. Patient does report a history of borderline diabetes. Hemoglobin A1c 11.6. Accu-Chek before meals at bedtime, sliding scale, cover as needed. Patient will need diabetic education, will consult cosmetology educator and dietitian. Added Levemir 10 units subcu at bedtime. DVT prophylaxis: SCDs. Linda Lambert Jul 16, 2017 13:40
[2017-07-16] MEDS ORDERED: DEXAMETHASONE SOD PHOS 4 MG/ML VIAL IV PUSH ONE (15:00)
--- NOTE | 2017-07-16 15:08 | RADRPT ---
EXAM DATE/TIME: 07/16/2017 14:28 [facility] COMPARISON: No previous studies available for comparison. INDICATIONS : Altered mental status. RADIATION DOSE: 60.14 CTDIvol (mGy) MEDICAL HISTORY : Carcinoma, breast. SURGICAL HISTORY : Appendectomy. Left breast lumpectomy. ENCOUNTER: Initial ACUITY: 1 day PAIN SCALE: 0/10 LOCATION: cranial TECHNIQUE: Multiple contiguous axial images were obtained of the head. Using automated exposure control and adj ustment of the mA and/or kV according to patient size, radiation dose was kept as low as reasonably a chievable to obtain optimal diagnostic quality images. DICOM format image data is available electro nically for review and comparison. FINDINGS: CEREBRUM: The ventricles are normal for age. No evidence of midline shift, mass lesion, hemorrhage or acute in farction. No extra-axial fluid collections are seen. POSTERIOR FOSSA: The cerebellum and brainstem are intact. The 4th ventricle is midline. The cerebellopontine angle i s unremarkable. EXTRACRANIAL: The visualized portion of the orbits is intact. SKULL: The calvaria is intact. No evidence of skull fracture. CONCLUSION: Normal examination. Júnior Rose MD on July 16, 2017 at 15:04 Board Certified Radiologist. This report was verified electronically.
[2017-07-16] MEDS ORDERED: INSU1INJ5 SQ (15:41)
[2017-07-16] MEDS: SODIUM CHLOR 0.9% 1000 ML INJ 1,000 ML IV SCH (16:00)
--- NOTE | 2017-07-16 20:39 | HHI.PR ---
Subjective Remarks 76 YOWF from [place], with H/O ductal ca breast, large rt lung mass Had CT guided rt lung bx No PTX Breathing better Objective Vital Signs Vital Signs Date Time Temp Pulse Resp B/P (MAP) Pulse Ox O2 Delivery O2 Flow Rate FiO2 07/16/17 15:50 99.1 117 20 129/58 (81) 95 07/16/17 12:07 18 07/16/17 11:50 119 22 132/73 (92) 98 07/16/17 11:50 96.3 117 20 120/65 (83) 93 07/16/17 11:20 120 22 133/74 (93) 100 07/16/17 11:08 Nasal Cannula 6.00 21 07/16/17 10:50 120 22 140/80 (100) 100 07/16/17 10:35 119 22 141/83 (102) 100 07/16/17 10:20 98.2 124 22 144/82 (102) 96 07/16/17 08:00 93 Nasal Cannula 6.00 07/16/17 07:50 98.4 139 20 154/85 (108) 90 07/16/17 00:32 18 07/16/17 00:00 99.7 121 18 120/67 (84) 94 I/O 07/15/17 07/15/17 07/15/17 07/16/17 07/16/17 07/16/17 07:00 15:00 23:00 07:00 15:00 23:00 Intake Total 600 ml 0 ml 840 ml Balance 600 ml 0 ml 840 ml Intake Oral 600 ml 0 ml 840 ml # Voids 2 2 2 2 4 # Bowel Movements 1 0 Result Diagram: 07/16/17 0638 07/16/17 0638 Objective Remarks GENERAL: WBWN WF,NAD SKIN: Warm and dry. HEAD: Normocephalic. EYES: No scleral icterus. No injection or drainage. NECK: Supple, trachea midline. No JVD or lymphadenopathy. CARDIOVASCULAR: Regular rate and rhythm without murmurs, gallops, or rubs. RESPIRATORY: Breath sounds equal bilaterally. No accessory muscle use. GASTROINTESTINAL: Abdomen soft, non-tender, nondistended. MUSCULOSKELETAL: No cyanosis, or edema. BACK: Nontender without obvious deformity. No CVA tenderness. A/P Assessment and Plan IMPRESSION: 1. Large right upper lobe mass. 2. Pretracheal lymph node. 3. Right shoulder pain. 4. History of nicotine use. 5. Carcinoma of the breast, status post lumpectomy and radiation treatment. PLAN: Check Lung bx Evaluate for home 02 Aerosol nebs Cont Abx Oncologt evaluating pt. Brady Shah MD Jul 16, 2017 20:39
[2017-07-16] MEDS ORDERED: INSULIN DETEMIR 100 UNITS/ML VIAL SQ SCH (21:00)
--- NOTE | 2017-07-16 21:50 | EKG ---
Date Performed: 07/16/2017 Time Performed: 16:07:15 PTAGE: 76 years EKG: SINUS TACHYCARDIA WITH OCCASIONAL VENTRICULAR PREMATURE COMPLEXES LEFT ATRIAL ENLARGEMENT N ONSPECIFIC T-WAVE ABNORMALITY ABNORMAL ECG Compared to prior electrocardiogram, Premature ventricular contractions are now present PREVIOUS TRACING : 07/14/2017 13.28 DOCTOR: Julian Polo Interpretating Date/Time 07/16/2017 21:49:37
[2017-07-17] VITALS (10 sets, daily range): BP systolic 125–177; BP diastolic 68–85; PULSE 113–125; RESP 20–27; TEMP 97.2–98.5; O2SAT 94–97
[2017-07-17] MEDS: SODIUM CHLOR 0.9% 1000 ML INJ 1,000 ML IV SCH (05:26)
[2017-07-17 07:34] LABS: AUTOMATED NEUTROPHIL # 13.9 TH/MM3 (1.8-7.7); BASOPHIL # 0.2 TH/MM3 (0-0.2); BASOPHIL % 1.4 % (0.0-2.0); EOSINOPHIL % 0.1 % (0.0-4.0); HEMATOCRIT 32.2 % (35.0-46.0); HEMOGLOBIN 9.9 GM/DL (11.6-15.3); LYMPH % 3.4 % (9.0-44.0); LYMPHOCYTE # 0.5 TH/MM3 (1.0-4.8); MEAN CELL VOLUME 83.4 FL (80.0-100.0); MEAN CORPUSCULAR HEMOGLOBIN 25.6 PG (27.0-34.0); MEAN CORPUSCULAR HGB CONC 30.7 % (32.0-36.0); MEAN PLATELET VOLUME 8.5 FL (7.0-11.0); MONO % 3.1 % (0.0-8.0); MONOCYTE # 0.5 TH/MM3 (0-0.9); PLATELET COUNT 343 TH/MM3 (150-450); RED BLOOD COUNT 3.87 MIL/MM3 (4.00-5.30); RED CELL DISTRIBUTION WIDTH 14.4 % (11.6-17.2); WHITE BLOOD COUNT 15.1 TH/MM3 (4.0-11.0)
[2017-07-17] MEDS: INSULIN ASPART SUPPLEMENTAL SCALE SQ SCH ×2 (09:00→12:44)
--- NOTE | 2017-07-17 09:47 | HHI.PR ---
Subjective Remarks Follow-up dyspnea and right lung mass. Patient seen and examined with at bedside, sitting up in chair on 6 L nasal cannula. With continued need for oxygen, patient does have dyspnea with exertion. Pulmonology following. patient is awake and alert. All confusion, weakness and speech impairment from yesterday is improved. Vital signs stable overnight. We will transferred to main hospital to undergo oncology treatment and closer observation in ICU. Objective Vitals Vital Signs Date Time Temp Pulse Resp B/P (MAP) Pulse Ox O2 Delivery O2 Flow Rate FiO2 07/17/17 07:50 97.2 125 20 141/71 (94) 97 07/17/17 07:39 94 21 07/17/17 07:36 96 Nasal Cannula 6.00 07/17/17 00:00 98.1 113 20 125/70 (88) 95 07/16/17 21:00 94 Nasal Cannula 6.00 07/16/17 20:00 98.4 112 20 124/69 (87) 94 07/16/17 20:00 94 Nasal Cannula 6.00 Humidified 07/16/17 15:50 99.1 117 20 129/58 (81) 95 07/16/17 12:07 18 07/16/17 11:50 119 22 132/73 (92) 98 07/16/17 11:50 96.3 117 20 120/65 (83) 93 07/16/17 11:20 120 22 133/74 (93) 100 07/16/17 11:08 Nasal Cannula 6.00 21 07/16/17 10:50 120 22 140/80 (100) 100 07/16/17 10:35 119 22 141/83 (102) 100 07/16/17 10:20 98.2 124 22 144/82 (102) 96 I/O 07/16/17 07/16/17 07/16/17 07/17/17 07/17/17 07/17/17 07:00 15:00 23:00 07:00 15:00 23:00 Intake Total 0 ml 1219 ml 622 ml 240 ml Balance 0 ml 1219 ml 622 ml 240 ml Intake Oral 0 ml 840 ml 240 ml IV Total 379 ml 622 ml # Voids 2 2 4 2 # Bowel Movements 0 0 Result Diagram: 07/17/17 0713 07/16/17 0638 Imaging Last Impressions Lung Biopsy CT 07/16/17 0000 Signed Impressions: Service Date/Time: Sunday, July 16, 2017 09:21 - CONCLUSION: Uncomplicated CT guided biopsy. Lewis Villa MD Head CT 07/16/17 0000 Signed Impressions: Service Date/Time: Sunday, July 16, 2017 14:28 - CONCLUSION: Normal examination. Júnior Rose MD Chest X-Ray 07/16/17 Signed Impressions: Service Date/Time: Sunday, July 16, 2017 10:07 - CONCLUSION: No pneumothorax Júnior Rose MD Chest CT 07/15/17 Signed Impressions: Service Date/Time: Saturday, July 15, 2017 00:48 - CONCLUSION: Right upper lung mass measures in excess of 10 cm and is highly suspicious for malignancy. There is also a 4 cm pretracheal mediastinal mass. Sravan Blanco MD Objective Remarks GENERAL: Well-developed, well-nourished patient in NAD. On supplemental O2. 6 L nasal cannula. SKIN: Warm and dry. No rash. HEAD: Normocephalic. Atraumatic. EYES: Pupils equal and round. No scleral icterus. No injection or drainage. ENT: No nasal bleeding or discharge. Mucous membranes pink and moist. NECK: Supple. Trachea midline. CARDIOVASCULAR: Regular rate and rhythm. S1, S2 noted. No murmur appreciated. RESPIRATORY: No accessory muscle use. Diminished breath sounds in the posterior lower lobes. Breath sounds equal bilaterally. GASTROINTESTINAL: Abdomen soft, non-tender, nondistended. Normoactive bowel sounds x4. MUSCULOSKELETAL: No obvious deformities. Extremities without clubbing, cyanosis , or edema. NEUROLOGICAL: Awake and alert. No obvious cranial nerve deficits. Motor grossly within normal limits. 5/5 muscle strength in bilateral upper and lower extremities. Normal speech. PSYCHIATRIC: Appropriate mood and affect; insight and judgment normal. A/P Problem List: (1) Dyspnea ICD Code: R06.00 - Dyspnea, unspecified Status: Acute (2) Lung mass ICD Code: R91.8 - Other nonspecific abnormal finding of lung field Status: Acute Assessment and Plan This is a pleasant 76-year-old female patient with a known medical history of left breast cancer with radiation and lumpectomy who presented to the ED with complaints of shortness of breath for the last 3 days. Acute respiratory failure present on admission in the setting of a lung mass with dyspnea requiring supplemental O2. - Chest x-ray and chest CT reviewed showing right upper lung mass measuring greater than 10 cm, highly suspicious for malignancy. Also a 4 cm pretracheal mediastinal mass noted. - Pulmonology consulted, appreciate input recommendations. IR consulted for CT guided lung biopsy, performed on 07/16/17. Await pathology. Mucinex ordered. - Consult placed to medical oncology, appreciate input recommendations. Patient desiring to get medical treatment in [place], although patient is not improving regarding acute respiratory failure and need for increased oxygen. - Case management spoke with medical transport who only allows patients to be on 3 L nasal cannula for transport. The decision has been made with medical oncology, patient and to undergo treatment at the main hospital and to be followed closely in the ICU. - Supplemental O2 as needed. Patient requiring nasal cannula 6 L at this time. Duo nebs as needed for dyspnea. Attempt to wean oxygen as tolerated. ABG done, CO2 70. Continue to monitor. Supportive care. Urinary tract infection Meet sepsis criteria (tachycardia, leukocytosis, source ) suspect secondary to above - Urine culture growing Klebsiella pneumonia. Sensitive to Rocephin, continue. Continue IV fluids. Lactic acid pending. Follow. Hypokalemia: Potassium 3.4. Status post replacement. Improved to 4.3. Monitor. Elevated random glucose on presentation New-onset type 2 diabetes - Random glucose 304. Patient does report a history of borderline diabetes. Hemoglobin A1c 11.6. - Accu-Chek before meals at bedtime, sliding scale, cover as needed. Patient will need diabetic education, will consult financial planning assistant and dietitian. - Added Levemir 10 units subcu at bedtime. Added prandial insulin. DVT prophylaxis: SCDs. Heparin. Linda Lambert Jul 17, 2017 09:47
[2017-07-17] MEDS: cefTRIAXone INJ 1,000 MG in SODIUM CHLORIDE 0.9% INJ 100 ML IV SCH (11:27)
[2017-07-17] MEDS: CHOLECALCIFEROL (VIT D3) 5000 UNIT CAP PO SCH (11:27)
[2017-07-17] MEDS: SODIUM CHLORIDE 0.9% FLUSH 10 ML FLUSH IV FLUSH SCH ×2 (11:28→20:29)
[2017-07-17] MEDS: guaiFENesin E.R. 600 MG TAB PO SCH ×2 (11:33→20:30)
[2017-07-17] MEDS: INSULIN DETEMIR 100 UNITS/ML VIAL SQ SCH ×2 (11:38→20:29)
[2017-07-17] MEDS ORDERED: HEPARIN SODIUM - SQ 10,000 UNITS/ML VIAL SQ SCH (14:00)
[2017-07-17] MEDS ORDERED: IOHEXOL 350 MG/ML 10 ML VIAL (for RAD DIAG) IVCONTRAST ONE (14:18)
--- NOTE | 2017-07-17 14:34 | RADRPT ---
EXAM DATE/TIME: 07/17/2017 14:06 [place] COMPARISON: CT THORAX W/O CONTRAST, July 15, 2017, 0:48. CT NEEDLE BIOPSY LUNG, RIGHT, July 16, 2017, 9:21. INDICATIONS : Dyspnea. IV CONTRAST: 75 cc Omnipaque 350 (iohexol) IV RADIATION DOSE: 15.29 CTDIvol (mGy) MEDICAL HISTORY : Carcinoma, breast. Right lung mass. SURGICAL HISTORY : Appendectomy. Left breast lumpectomy. ENCOUNTER: Initial ACUITY: 4 - 6 days PAIN SCALE: 0/10 LOCATION: chest TECHNIQUE: Volumetric scanning of the chest was performed using a pulmonary embolism protocol MIP images were re constructed. Using automated exposure control and adjustment of the mA and/or kV according to patien t size, radiation dose was kept as low as reasonably achievable to obtain optimal diagnostic quality images. DICOM format image data is available electronically for review and comparison. Follow-up recommendations for detected pulmonary nodules are based at a minimum on nodule size and pa tient risk factors according to Fleischner Society Guidelines. FINDINGS: PULMONARY ARTERIES: No filling defects are seen in the pulmonary arteries through the segmental level. There is attenuati on of a branch of the right upper lobe pulmonary artery related to the large mass. LUNGS: There is no significant change in the appearance of the large (greater than 10 cm) right upper lobe m ass. There is a tiny 6 mm pleural-based nodule within the right upper lobe laterally which is indeter minate. Scattered fibrotic scarring and subpleural emphysema is stable bilaterally. PLEURAE: Small right pleural effusion is noted. MEDIASTINUM: Large pretracheal and subcarinal mediastinal lymphadenopathy is noted. Prevascular mediastinal lympha denopathy is also noted. Right hilar lymphadenopathy is noted. Cardiomegaly is stable. MUSCULOSKELETAL: Degenerative changes and scoliosis of the thoracic spine are noted. There is a mild compression defor mity involving T7 of indeterminate age. Minimal compression deformity involving T11 is also noted. MISCELLANEOUS: The visualized upper abdominal organs demonstrate no acute abnormality. CONCLUSION: 1. No evidence of pulmonary embolism. 2. Stable large right upper lobe mass and probable bronchogenic carcinoma as well as stable mediastin al and right hilar lymphadenopathy and tiny pleural-based right upper lobe nodule measuring 6 mm. 3. Small right pleural effusion. 4. Peripheral subpleural emphysematous changes and fibrotic scarring bilaterally. 5. Cardiomegaly. 6. Mild compression deformity involving T7 and minimal compression deformity involving T11 of indeter minate ages. 7. Degenerative changes and scoliosis of the thoracic spine. Kit Alcaraz MD on July 17, 2017 at 14:21 Board Certified Radiologist. This report was verified electronically.
[2017-07-17] MEDS ORDERED: INSULIN HUMAN REGULAR 1,000 UNITS/10 ML VIAL SQ SCH ×2 (16:00→17:00)
[2017-07-17] MEDS ORDERED: GLUCAGON 1 MG/ML VIAL OTHER PRN (16:15)
[2017-07-17] MEDS ORDERED: DEXTROSE 50% IN WATER 50 ML VIAL(D50) IV PUSH PRN (16:15)
[2017-07-17] MEDS: PIPERACIL-TAZO 4.5 GM PREMIX 100 ML IV SCH ×2 (17:00→23:38)
--- NOTE | 2017-07-17 17:30 | HHI.PR ---
Subjective Remarks 76 Y[place]F [place], with H/O ductal ca breast, large rt lung mass Had CT guided rt lung bx No PTX Breathing better Tr to [facility] Objective Vital Signs Vital Signs Date Time Temp Pulse Resp B/P (MAP) Pulse Ox O2 Delivery O2 Flow Rate FiO2 07/17/17 16:15 98 Nasal Cannula 2.00 Humidified 07/17/17 16:00 98 Nasal Cannula 6.00 Humidified 07/17/17 16:00 98.1 113 27 125/76 (92) 95 07/17/17 12:30 97 Nasal Cannula 6.00 07/17/17 11:50 97.9 113 20 177/68 (104) 95 07/17/17 07:50 97.2 125 20 141/71 (94) 97 07/17/17 07:39 94 21 07/17/17 07:36 96 Nasal Cannula 6.00 07/17/17 00:00 98.1 113 20 125/70 (88) 95 07/16/17 21:00 94 Nasal Cannula 6.00 07/16/17 20:00 98.4 112 20 124/69 (87) 94 07/16/17 20:00 94 Nasal Cannula 6.00 Humidified I/O 07/16/17 07/16/17 07/16/17 07/17/17 07/17/17 07/17/17 07:00 15:00 23:00 07:00 15:00 23:00 Intake Total 0 ml 1219 ml 622 ml 240 ml Balance 0 ml 1219 ml 622 ml 240 ml Intake Oral 0 ml 840 ml 240 ml IV Total 379 ml 622 ml # Voids 2 2 4 2 # Bowel Movements 0 0 Result Diagram: 07/17/17 0713 07/16/17 0638 Objective Remarks GENERAL: WBWN WF,NAD SKIN: Warm and dry. HEAD: Normocephalic. EYES: No scleral icterus. No injection or drainage. NECK: Supple, trachea midline. No JVD or lymphadenopathy. CARDIOVASCULAR: Regular rate and rhythm without murmurs, gallops, or rubs. RESPIRATORY: Breath sounds equal bilaterally. No accessory muscle use. GASTROINTESTINAL: Abdomen soft, non-tender, nondistended. MUSCULOSKELETAL: No cyanosis, or edema. BACK: Nontender without obvious deformity. No CVA tenderness. A/P Assessment and Plan IMPRESSION: 1. Large right upper lobe mass. 2. Pretracheal lymph node. 3. Right shoulder pain. 4. History of nicotine use. 5. Carcinoma of the breast, status post lumpectomy and radiation treatment. PLAN: Check Lung bx Evaluate for home 02 Aerosol nebs Cont Abx DW Brady Reno MD Jul 17, 2017 17:29
[2017-07-17] MEDS: FAMOTIDINE 20 MG/2 ML VIAL IV PUSH SCH (17:45)
--- NOTE | 2017-07-17 17:55 | MB ---
cc: Lc Gonzalez MD DATE: 07/17/2017 HISTORY OF PRESENT ILLNESS: The patient is a 76-year-old female with a past medical history of left breast cancer status post radiation and lumpectomy, hyperlipidemia and borderline diabetes mellitus. She presented to [place] ED on 07/15/2017 with a 2-3 day history of progressive worsening shortness of breath associated with a productive cough and intermittent wheezing. She denies any associated symptoms of chest pain, fever, chills or any constitutional symptoms. In addition, she denies any nausea, vomiting or abdominal pain. She had an ABG done on 07/16/2017 on 6 liter oxygen, which showed compensating respiratory acidosis with a pH of 7.38, CO2 of 70, bicarbonate 40 and saturation of 90%. Her initial chest x-ray on admission showed a mass in her right chest that measures approximately 10 x 7 cm. She had a [address] scan of the chest performed, which also showed right upper lobe lung mass that measures in excess of 10 cm and highly suspicious for malignancy. The patient underwent a CT guided lung biopsy of the lung mass yesterday. She was admitted under hospitalist service and started on bronchodilators and antibiotics for UTI. She was also seen by Dr. Shah from pulmonary service. The patient was transferred to [facility], room 505A, and critical care medicine was consulted for critical care management. However, when seen, the patient is awake, alert, looks comfortable, lying in bed in no acute respiratory distress. She is on 6 liter oxygen with a saturation of 95% to 97%, blood pressure 125/76 and slightly tachycardic with heart rate of 113. She denies any worsening dyspnea from baseline. The patient quit smoking a year ago and has a [id number] history of smoking. She denies any use of home oxygen or bronchodilators at home. PAST MEDICAL HISTORY: Significant for left breast cancer with radiation, hyperlipidemia, borderline diabetes mellitus. PAST SURGICAL HISTORY: Previous lumpectomy, previous appendectomy, previous left elbow surgeries and left foot surgery. ALLERGIES: NO KNOWN DRUG ALLERGIES REPORTED. MEDICATIONS AT HOME: Include aspirin, vitamin D3 and Lovastatin. CURRENT MEDICATIONS: Include sliding scale insulin, Levemir, guaifenesin, Tylenol p.r.n. and Rocephin. FAMILY HISTORY: Her mother had a history of breast cancer. SOCIAL HISTORY: The patient quit smoking a year ago and has a [id number] history of smoking. Rare alcohol use. REVIEW OF SYSTEMS: As per HPI. Rest of review of systems is unremarkable. PHYSICAL EXAMINATION: GENERAL: A 76-year-old female lying in bed, in no acute respiratory distress. VITAL SIGNS: Temperature 98.1, pulse of 112, blood pressure 125/76, saturation 95-97% on 6 liter oxygen. HEENT: Atraumatic, normocephalic. Pupils are equal, round, reactive to light and accommodation. Extraocular muscles intact. Conjunctivae pink. Nonicteric sclerae. Oral mucosa within normal. NECK: Supple. No JVD. No lymphadenopathy or thyromegaly. Trachea in the midline. CARDIOVASCULAR: Tachycardic. Normal S1, S2. No murmurs, rubs or gallops noted. PULMONARY: Bilateral equal air entry. No crackles. A few coarse breath sounds. ABDOMEN: Soft, obese, nontender. No distention. Positive bowel sounds. EXTREMITIES: No cyanosis, clubbing, edema. NEUROLOGIC: No focal sensory deficit. LABORATORY DATA: Sodium 138, potassium 4.3, chloride 94, CO2 of 36, BUN 11, creatinine 0.5, glucose 284. CBC from today, white count 15.1, hemoglobin 9.9, hematocrit 32, platelet count 343. ABG from yesterday showed a pH of 7.38, CO2 of 70, pO2 of 61, bicarbonate 40, saturation 90%. Urine culture positive for Klebsiella pneumoniae. RADIOGRAPHIC STUDIES: A CT angiogram of the chest was performed this afternoon which showed no evidence of pulmonary embolism. A large right upper lobe lung mass measuring in excess of 10 cm, small right pleural effusion, subpleural emphysematous changes and fibrotic scarring bilaterally. IMPRESSION: 1. Docof-qh-nlumxpd hypercapnic respiratory acidosis. 2. Right upper lobe lung mass, status post CT-guided lung biopsy, likely bronchogenic carcinoma. 3. Tobacco abuse. 4. Likely chronic obstructive pulmonary disease. 5. Obesity. 6. Leukocytosis. 7. Hyperglycemia. 8. Anemia. 9. Urinary tract infection with urine culture positive for Klebsiella pneumoniae. 10. History of breast carcinoma. RECOMMENDATIONS: 1. Monitor neuro status closely and avoid any sedatives. 2. Continue to wean down oxygen as tolerated and maintain sats above 92%. 3. Bronchodilators in the form of DuoNeb q.4 plus q.2 hours p.r.n. for shortness of breath. We will add Symbicort 160/4.5 two puffs q.12 hours and Solu-Medrol 40 mg IV q.12. 4. Noninvasive positive pressure ventilation p.r.n. for respiratory distress. 5. We will repeat ABG. Dr. Shah from pulmonary service is following. Case discussed with him. 6. The patient is status post CT-guided lung biopsy of the right upper lobe lung mass. Follow up on pathology. 7. Monitor heart rate and blood pressure and maintain MAP greater than 65 mmHg. 8. Monitor renal function, I's and O's and electrolyte replacement per protocol. 9. Start on a diabetic diet and place on Pepcid for gastrointestinal prophylaxis. 10. Change antibiotics from Rocephin to Zosyn. Monitor for signs infections which include fever and WBC and obtain a sputum culture with Gram stain. 11. Monitor CBC. Oncology is following. 12. Continue sliding scale insulin with Accu-Cheks. Increase to medium scale and continue with Levemir 10 units b.i.d. 13. GI prophylaxis with Pepcid and DVT prophylaxis with SCDs and heparin subq. 14. Further recommendations will be based on hospital course. MD PRINCESS Capps/ANNMARIE , 04:58 PM , 05:54 PM
[2017-07-17] MEDS: methylPREDNISolone SOD SUCC 40 MG/1 ML VIAL IV PUSH SCH (20:29)
[2017-07-17] MEDS: HEPARIN SODIUM - SQ 10,000 UNITS/ML VIAL SQ SCH (20:29)
[2017-07-17] MEDS: BUDESONIDE-FORMOTEROL 160/4.5 MCG INHALER INH SCH (20:41)
[2017-07-17] MEDS: RESP: ALBUTEROL 2.5 MG/IPRATROPIUM 0.5 MG NEB (SCH) NEB ×2 (21:55→23:38)
[2017-07-17] MEDS: INSULIN NovoLIN REGULAR SUPPLEMENTAL SCALE SQ SCH (23:34)
[2017-07-18] VITALS (23 sets, daily range): BP systolic 111–160; BP diastolic 55–95; PULSE 85–122; RESP 15–33; TEMP 96.9–98.9; O2SAT 86–100
[2017-07-18] MEDS: INSULIN NovoLIN REGULAR SUPPLEMENTAL SCALE SQ SCH ×6 (03:23→23:43)
[2017-07-18] MEDS: RESP: ALBUTEROL 2.5 MG/IPRATROPIUM 0.5 MG NEB (SCH) NEB ×5 (03:50→20:22)
[2017-07-18] MEDS: FAMOTIDINE 20 MG/2 ML VIAL IV PUSH SCH ×2 (05:03→17:08)
[2017-07-18] MEDS: PIPERACIL-TAZO 4.5 GM PREMIX 100 ML IV SCH ×4 (05:03→23:44)
[2017-07-18 06:26] LABS: BASOPHIL % 0.1 % (0.0-2.0); HEMATOCRIT 30.1 % (35.0-46.0); HEMOGLOBIN 9.5 GM/DL (11.6-15.3); LYMPH % 3.4 % (9.0-44.0); LYMPHOCYTE # 0.4 TH/MM3 (1.0-4.8); MEAN CELL VOLUME 82.6 FL (80.0-100.0); MEAN CORPUSCULAR HGB CONC 31.5 % (32.0-36.0); MEAN PLATELET VOLUME 7.6 FL (7.0-11.0); MONO % 6.8 % (0.0-8.0); MONOCYTE # 0.8 TH/MM3 (0-0.9); NEUT % 89.7 % (16.0-70.0); PLATELET COUNT 347 TH/MM3 (150-450); RED BLOOD COUNT 3.64 MIL/MM3 (4.00-5.30); RED CELL DISTRIBUTION WIDTH 14.9 % (11.6-17.2); WHITE BLOOD COUNT 11.2 TH/MM3 (4.0-11.0)
[2017-07-18 06:51] LABS: ALBUMIN 2.3 GM/DL (3.4-5.0); AST (GOT) 20 U/L (15-37); BLOOD UREA NITROGEN 13 MG/DL (7-18); CALCIUM 9.9 MG/DL (8.5-10.1); CHLORIDE 92 MEQ/L (98-107); CREATININE 0.48 MG/DL (0.50-1.00); GLOMERULAR FILTRATION RATE 126 ML/MIN (>89); GLUCOSE,RANDOM 195 MG/DL (74-106); SODIUM (NA) 137 MEQ/L (136-145)
[2017-07-18 06:52] LABS: ALT (GPT) 51 U/L (10-53)
[2017-07-18 06:55] LABS: ALKALINE PHOSPHATASE 116 U/L (45-117); TOTAL BILIRUBIN ADULT 0.3 MG/DL (0.2-1.0); TOTAL PROTEIN 7.5 GM/DL (6.4-8.2)
[2017-07-18] MEDS: SODIUM CHLORIDE 0.9% FLUSH 10 ML FLUSH IV FLUSH SCH ×2 (07:49→21:06)
[2017-07-18] MEDS: methylPREDNISolone SOD SUCC 40 MG/1 ML VIAL IV PUSH SCH ×2 (07:49→21:06)
[2017-07-18] MEDS: HEPARIN SODIUM - SQ 10,000 UNITS/ML VIAL SQ SCH ×2 (07:50→21:00)
[2017-07-18] MEDS: INSULIN DETEMIR 100 UNITS/ML VIAL SQ SCH ×2 (07:50→21:00)
[2017-07-18] MEDS: CHOLECALCIFEROL (VIT D3) 5000 UNIT CAP PO SCH (07:51)
[2017-07-18] MEDS: guaiFENesin E.R. 600 MG TAB PO SCH ×2 (07:51→21:04)
[2017-07-18] MEDS: BUDESONIDE-FORMOTEROL 160/4.5 MCG INHALER INH SCH ×2 (07:51→21:05)
--- NOTE | 2017-07-18 09:53 | HHI.CCPN ---
Subjective Remarks/Hospital Course Patient is a 76-year-old female with a past medical history of left breast cancer status post radiation and lumpectomy, hyperlipidemia and borderline diabetes mellitus. She presented to [place] ED on 07/15/2017 with a 2-3 day history of progressive worsening shortness of breath associated with a productive cough and intermittent wheezing. She denies any associated symptoms of chest pain, fever, chills or any constitutional symptoms. In addition, she denies any nausea, vomiting or abdominal pain. She had an ABG done on 07/16/2017 on 6 liter oxygen, which showed compensating respiratory acidosis with a pH of 7.38, CO2 of 70, bicarbonate 40 and saturation of 90%. Her initial chest x-ray on admission showed a mass in her right chest that measures approximately 10 x 7 cm. She had a [address] scan of the chest performed, which also showed right upper lobe lung mass that measures in excess of 10 cm and highly suspicious for malignancy. The patient underwent a CT guided lung biopsy of the lung mass yesterday. She was admitted under hospitalist service and started on bronchodilators and antibiotics for UTI. She was also seen by Dr. Shah from pulmonary service. The patient was transferred to [facility], room 505A, and critical care medicine was consulted for critical care management. However, when seen, the patient is awake, alert, looks comfortable, lying in bed in no acute respiratory distress. She is on 6 liter oxygen with a saturation of 95% to 97%, blood pressure 125/76 and slightly tachycardic with heart rate of 113. She denies any worsening dyspnea from baseline. The patient quit smoking a year ago and has a [id number] history of smoking. She denies any use of home oxygen or bronchodilators at home. 07/18 No events overnight. On 4L oxygen. Afebrile. 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 Objective Vital Signs Date Time Temp Pulse Resp B/P (MAP) Pulse Ox O2 Delivery O2 Flow Rate FiO2 07/18/17 07:39 93 Nasal Cannula 4.00 07/18/17 06:00 113 07/18/17 04:00 96.9 30 135/73 (93) 07/17/17 07:39 21 Intake and Output 07/18/17 07/18/17 07/18/17 07:59 15:59 23:59 Intake Total 400 ml Output Total 200 ml Balance 200 ml Result Diagram: 07/18/17 0604 07/18/17 0604 Other Results Laboratory Tests Test 07/17/17 16:53 07/17/17 17:45 07/18/17 06:04 Blood Gas Puncture Site RT RADIAL Blood Gas Patient Temperature 98.6 Blood Gas HCO3 42 mmol/L Blood Gas Base Excess 15.8 mmol/L Blood Gas Oxygen Saturation 89 % Arterial Blood pH 7.36 Arterial Blood Partial Pressure CO2 77 mmHg Arterial Blood Partial Pressure O2 62 mmHg Arterial Blood Oxygen Content 11.7 Vol % Arterial Blood Carboxyhemoglobin 1.5 % Arterial Blood Methemoglobin 1.0 % Blood Gas Hemoglobin 9.4 G/DL Oxygen Delivery Device NASAL CANNULA Blood Gas Liter Flow 4 L/M Nasal Screen MRSA (PCR) MRSA NOT DETECTED White Blood Count 11.2 TH/MM3 Red Blood Count 3.64 MIL/MM3 Hemoglobin 9.5 GM/DL Hematocrit 30.1 % Mean Corpuscular Volume 82.6 FL Mean Corpuscular Hemoglobin 26.0 PG Mean Corpuscular Hemoglobin Concent 31.5 % Red Cell Distribution Width 14.9 % Platelet Count 347 TH/MM3 Mean Platelet Volume 7.6 FL Neutrophils (%) (Auto) 89.7 % Lymphocytes (%) (Auto) 3.4 % Monocytes (%) (Auto) 6.8 % Eosinophils (%) (Auto) 0.0 % Basophils (%) (Auto) 0.1 % Neutrophils # (Auto) 10.0 TH/MM3 Lymphocytes # (Auto) 0.4 TH/MM3 Monocytes # (Auto) 0.8 TH/MM3 Eosinophils # (Auto) 0.0 TH/MM3 Basophils # (Auto) 0.0 TH/MM3 CBC Comment DIFF FINAL Differential Comment Blood Urea Nitrogen 13 MG/DL Creatinine 0.48 MG/DL Random Glucose 195 MG/DL Total Protein 7.5 GM/DL Albumin 2.3 GM/DL Calcium Level 9.9 MG/DL Phosphorus Level 3.0 MG/DL Magnesium Level 2.0 MG/DL Alkaline Phosphatase 116 U/L Aspartate Amino Transf (AST/SGOT) 20 U/L Alanine Aminotransferase (ALT/SGPT) 51 U/L Total Bilirubin 0.3 MG/DL Sodium Level 137 MEQ/L Potassium Level 3.8 MEQ/L Chloride Level 92 MEQ/L Carbon Dioxide Level 41.0 MEQ/L Anion Gap 4 MEQ/L Estimat Glomerular Filtration Rate 126 ML/MIN Lactic Acid Level 0.9 mmol/L Imaging Last Impressions CT Angiography 07/17/17 0000 Signed Impressions: Service Date/Time: June 14:06 - CONCLUSION: 1. No evidence of pulmonary embolism. 2. Stable large right upper lobe mass and probable bronchogenic carcinoma as well as stable mediastinal and right hilar lymphadenopathy and tiny pleural-based right upper lobe nodule measuring 6 mm. 3. Small right pleural effusion. 4. Peripheral subpleural emphysematous changes and fibrotic scarring bilaterally. 5. Cardiomegaly. 6. Mild compression deformity involving T7 and minimal compression deformity involving T11 of indeterminate ages. 7. Degenerative changes and scoliosis of the thoracic spine. Kit Alcaraz MD Lung Biopsy CT 07/16/17 0000 Signed Impressions: Service Date/Time: Sunday, July 16, 2017 09:21 - CONCLUSION: Uncomplicated CT guided biopsy. Lewis Villa MD Head CT 07/16/17 0000 Signed Impressions: Service Date/Time: Sunday, July 16, 2017 14:28 - CONCLUSION: Normal examination. Júnior Rose MD Chest X-Ray 07/16/17 0000 Signed Impressions: Service Date/Time: Sunday, July 16, 2017 10:07 - CONCLUSION: No pneumothorax Júnior Rose MD Chest CT 07/15/17 0000 Signed Impressions: Service Date/Time: Saturday, July 15, 2017 00:48 - CONCLUSION: Right upper lung mass measures in excess of 10 cm and is highly suspicious for malignancy. There is also a 4 cm pretracheal mediastinal mass. Sravan Blanco MD Objective Remarks GENERAL: Patient is 76 yo lying in bed in NAD SKIN: Warm and dry. HEAD: Normocephalic. EYES: No scleral icterus. No injection or drainage. NECK: Supple, trachea midline. No JVD or lymphadenopathy. CARDIOVASCULAR: Tachycardic without murmurs, gallops, or rubs. RESPIRATORY: Breath sounds equal bilaterally. No accessory muscle use. GASTROINTESTINAL: Abdomen soft, non-tender, nondistended. MUSCULOSKELETAL: No cyanosis, or edema. Neuro: awake and alert A/P Assessment and Plan 1. Tvpji-hm-agomarw hypercapnic respiratory acidosis. 2. Right upper lobe lung mass, status post CT-guided lung biopsy, ( Squamous cell ca) 3. Tobacco abuse. 4. Likely chronic obstructive pulmonary disease. 5. Obesity. 6. Leukocytosis. 7. Hyperglycemia. 8. Anemia. 9. UTI with urine culture positive for Klebsiella pneumoniae. 10. History of breast carcinoma. Plan Neuro: awake and alert -Monitor neuro status closely and avoid any sedatives. Pulm: Continue to wean down oxygen as tolerated and maintain sats >92%. Bronchodilators ( DuoNeb ,Symbicort) , on Solu-Medrol 40 mg IV q.12. BIPAP p.r.n. for respiratory distress. Pulm is following- Dr. Pablo Soliz showed Squamous cell ca of lung Check BAG, give Diamox 250mg IV x1 CV: Place on Lopressor 25mg Q12- Monitor heart rate and blood pressure and maintain MAP> 65 mmHg. GI: On Pepcid for gastrointestinal prophylaxis, on PO diet ID: Continue Zosyn. Monitor for signs infections(fever and WBC) Heme: Monitor CBC. Oncology is following. Path showed Squamous cell ca of lung, consult radiation Oncology Endo: SSI with Accu-Cheks. Levemir 10 units b.i.d. GI prophylaxis with Pepcid and DVT prophylaxis with SCDs and heparin subq. Will sign off and transfer care to [facility] Level 2 Lc Gonzalez MD Jul 18, 2017 09:53
[2017-07-18] MEDS: METOPROLOL TARTRATE 25 MG TAB PO SCH ×2 (10:46→21:04)
--- NOTE | 2017-07-18 18:33 | HHI.PR ---
Subjective Remarks 76 YOWF from [place], with H/O ductal ca breast, large rt lung mass Had CT guided rt lung bx No PTX Breathing better Bx Sq cell ca Objective Vital Signs Vital Signs Date Time Temp Pulse Resp B/P (MAP) Pulse Ox O2 Delivery O2 Flow Rate FiO2 07/18/17 14:00 97 20 112/74 (87) 97 07/18/17 14:00 97 20 112/74 (87) 97 07/18/17 14:00 97 07/18/17 14:00 97 07/18/17 13:01 100 26 126/73 (90) 96 07/18/17 13:01 100 07/18/17 13:01 100 26 126/73 (90) 96 07/18/17 12:01 95 25 153/95 (114) 95 07/18/17 12:01 95 25 153/95 (114) 95 07/18/17 12:01 95 07/18/17 12:00 95 07/18/17 12:00 95 26 96 07/18/17 12:00 98.9 07/18/17 12:00 95 26 96 07/18/17 12:00 96 Nasal Cannula 4.00 21 07/18/17 11:00 122 07/18/17 11:00 122 28 145/78 (100) 93 07/18/17 10:00 118 19 127/69 (88) 98 07/18/17 10:00 118 07/18/17 09:00 115 33 135/66 (89) 95 07/18/17 09:00 115 07/18/17 08:00 114 32 146/75 (98) 96 07/18/17 08:00 114 07/18/17 08:00 96 Nasal Cannula 4.00 21 07/18/17 07:39 93 Nasal Cannula 4.00 07/18/17 06:00 113 07/18/17 04:00 116 07/18/17 04:00 100 Nasal Cannula 6.00 07/18/17 04:00 96.9 116 30 135/73 (93) 100 07/18/17 03:50 100 Nasal Cannula 6.00 07/18/17 02:00 111 07/18/17 00:00 97 Nasal Cannula 4.00 07/18/17 00:00 119 07/18/17 00:00 98.6 119 27 160/76 (104) 97 07/17/17 23:41 97 Nasal Cannula 2.00 07/17/17 22:00 122 07/17/17 21:57 97 Nasal Cannula 2.00 07/17/17 20:00 122 07/17/17 20:00 98.5 122 26 145/85 (105) 96 07/17/17 20:00 96 Nasal Cannula 4.00 I/O 07/17/17 07/17/17 07/17/17 07/18/17 07/18/17 07/18/17 07:00 15:00 23:00 07:00 15:00 23:00 Intake Total 622 ml 240 ml 460 ml 400 ml Output Total 0 ml 200 ml Balance 622 ml 240 ml 460 ml 200 ml Intake Oral 240 ml 360 ml 200 ml IV Total 622 ml 100 ml 200 ml Output Urine Total 0 ml 200 ml # Voids 2 1 # Bowel Movements 0 0 Result Diagram: 07/18/17 0604 07/18/17 0604 Objective Remarks GENERAL: WBWN WF,NAD SKIN: Warm and dry. HEAD: Normocephalic. EYES: No scleral icterus. No injection or drainage. NECK: Supple, trachea midline. No JVD or lymphadenopathy. CARDIOVASCULAR: Regular rate and rhythm without murmurs, gallops, or rubs. RESPIRATORY: Breath sounds equal bilaterally. No accessory muscle use. GASTROINTESTINAL: Abdomen soft, non-tender, nondistended. MUSCULOSKELETAL: No cyanosis, or edema. BACK: Nontender without obvious deformity. No CVA tenderness. A/P Assessment and Plan IMPRESSION: 1. Large right upper lobe mass.--Sq cell Ca 2. Pretracheal lymph node. 3. Right shoulder pain. 4. History of nicotine use. 5. Carcinoma of the breast, status post lumpectomy and radiation treatment. PLAN: Seen by Evaluate for home 02 Aerosol nebs Cont Abx Family considering taking her back to [place] or start treatment here LARISA pt and her Brady Shah MD Jul 18, 2017 18:33
--- NOTE | 2017-07-18 18:56 | MB ---
cc: Mina Stephen MD,Brady Gonzalez,Lc Omalley,Kathryn Zuñiga MD DATE: 07/18/2017 HISTORY OF PRESENT ILLNESS: This is a 76-year-old female who was previously treated in this department under Dr. Leger's care. She had a left breast cancer, for which she underwent lumpectomy and postoperative radiation treatment, with radiation treatment completed in 2009. Nevertheless, she lives in [place] and spends 3 months of the year down here. She did smoke, but she has quit smoking intermittently and it would appear that she still smokes somewhat intermittently. Approximately a week ago, she started to develop shortness of breath. She developed some pain in the upper back and thought this was a pulled muscle, but eventually showed up in the emergency room on 07/14/2017. A workup at that time included a chest x-ray which revealed a mass in the right chest measuring 10 x 7 cm. She then underwent a CT scan of the chest, which revealed a right upper lobe lung mass in excess of 10 cm. There is a 4 cm pretracheal mediastinal mass. She has since gone on to undergo a CT-directed needle biopsy, which revealed a squamous cell carcinoma. She was transferred here from the hospital in [facility] yesterday with increasing shortness of breath. A CT angiogram was performed yesterday, which showed no evidence of pulmonary embolism, stable right upper lobe mass, small right pleural effusion, peripheral subpleural emphysematous changes, cardiomegaly, mild compression fractures of T7 and 11 with age indeterminate. It is noted that she has also had a nonenhanced CT scan of her brain on presentation on 07/16/2017, which was considered negative. This lady and her deny any unusual symptoms leading up to this fairly sudden onset of increasing shortness of breath. Currently, she is managing in the hospital with oxygen at 4 liters per minute at nasal prong. Her last O2 sats taken at 2 were 97%, at 1:00 were 96% and at 12;00 were 95%. Last evening; however, she had been on 6 liters per minute. She does have a cough. There has been no hemoptysis. She denies unexpected fever, sweats or weight loss. PAST MEDICAL AND SURGICAL HISTORY: 1. Left breast cancer, treated with lumpectomy and postoperative radiation treatment, dating back to 2009, as noted. 2. History of COPD. 3. Borderline diabetes 4. Hyperlipidemia. PAST SURGICAL HISTORY: 1. She has had an appendectomy. 2. Left breast lumpectomy with sentinel lymph node sampling. 3. She has had left foot surgery with fusion. 4. Left elbow surgery. SOCIAL HISTORY: She lives in [place]. She has 3 sons. She is accompanied by her , who is with her today. FAMILY HISTORY: Her mother has had breast cancer. There is no other cancer in the family. ALLERGIES: NONE KNOWN. MEDICATIONS: 1. Metoprolol 25 mg q.12 hours. 2. Prednisone 40 mg q.12 hours. 3. Albuterol. REVIEW OF SYSTEMS: Apart from her pulmonary symptoms. She has some difficulty finding words and she does not appreciate it, although her has noticed. She denies headaches, nausea or vomiting. She does have shortness of breath. She denies chest pain. She denies unusual bone or back pain. She denies upper or lower GI complaints. No genitourinary complaints and no swelling. PHYSICAL EXAMINATION: GENERAL: She is sitting up, resting comfortably in bed. VITAL SIGNS: She was noted to be afebrile, respiratory rate of 20, blood pressure of 112/74 and her O2 saturation on 4 liters by nasal cannula of 97%. HEAD AND NECK: There was no jaundice. Her conjunctivae and eyelids are normal. She had full EOMs. There is no adenopathy palpable in her head and neck region. CHEST: Her lung kirby were clear on the left. She had very little air entry on the right. She had a normal first and second heart sound without murmurs, rubs or bruits and her rate and rhythm was normal. There is no clubbing. There is no axillary adenopathy. GASTROINTESTINAL: No abdominal masses, tenderness, or hepatosplenomegaly. EXTREMITIES: No ankle edema. Power testing in all limbs was normal. REVIEW OF DATA: Today reviewed this lady's 2 CT scans, her pathology report and the notes from Dr. Gonzalez and Dr. Omalley. I have also discussed her care on the phone several times with Dr. Omalley. This lady is very determined to get back to [place] as quickly as possible. She would like to fly there possibly by medical transport and initiate all her care there. She feels if she has a serious illness she wants to be where her family is. This is not unreasonable as long as medical transport can be arranged for her. I do not feel comfortable suggesting that her could manage her on a driving trip and at the rates of O2 flow that she requires, it is not clear to me that she would manage on a commercial airline with portable oxygen. However, I do need to leave this to her refining machine operator to help her advise her on this. I have discussed treatment with them. I have discussed combined radiation treatment and chemotherapy. If they stay, I would suggest that she proceed with standard treatment. If she improves quickly, then she could transfer herself up for continuing care in [place]. This lady herself is quite determined to start her treatment in [place]. Her appears to be coming to realize the seriousness of the situation. As it is Friday evening, they cannot get good advice on medical transport I believe until early next week and at this point, if she is stable they are happy to wait that time period out and assess that early next week. The patient knows that we are available should her clinical situation change or should she decide that she wished to pursue treatment here. We certainly wish her well. MD KARY Coates/ANNMARIE , 05:18 PM , 06:55 PM
[2017-07-19] VITALS (15 sets, daily range): BP systolic 105–148; BP diastolic 59–92; PULSE 93–107; RESP 16–27; TEMP 96.7–98; O2SAT 90–99
[2017-07-19] MEDS: RESP: ALBUTEROL 2.5 MG/IPRATROPIUM 0.5 MG NEB (SCH) NEB ×4 (00:03→14:34)
[2017-07-19] MEDS: INSULIN NovoLIN REGULAR SUPPLEMENTAL SCALE SQ SCH ×6 (03:48→23:22)
[2017-07-19] MEDS: PIPERACIL-TAZO 4.5 GM PREMIX 100 ML IV SCH ×2 (05:56→11:31)
[2017-07-19] MEDS: FAMOTIDINE 20 MG/2 ML VIAL IV PUSH SCH (05:56)
[2017-07-19 07:58] LABS: AUTOMATED NEUTROPHIL # 9.9 TH/MM3 (1.8-7.7); BASOPHIL % 0.1 % (0.0-2.0); HEMATOCRIT 32.2 % (35.0-46.0); HEMOGLOBIN 10.4 GM/DL (11.6-15.3); LYMPH % 4.8 % (9.0-44.0); LYMPHOCYTE # 0.6 TH/MM3 (1.0-4.8); MEAN CORPUSCULAR HEMOGLOBIN 26.8 PG (27.0-34.0); MEAN CORPUSCULAR HGB CONC 32.2 % (32.0-36.0); MONO % 9.4 % (0.0-8.0); MONOCYTE # 1.1 TH/MM3 (0-0.9); NEUT % 85.7 % (16.0-70.0); PLATELET COUNT 378 TH/MM3 (150-450); RED BLOOD COUNT 3.88 MIL/MM3 (4.00-5.30); RED CELL DISTRIBUTION WIDTH 15.1 % (11.6-17.2); WHITE BLOOD COUNT 11.6 TH/MM3 (4.0-11.0)
[2017-07-19 08:23] LABS: BICARBONATE 40.3 MEQ/L (21.0-32.0); CALCIUM 10.2 MG/DL (8.5-10.1); CREATININE 0.6 MG/DL (0.50-1.00)
[2017-07-19] MEDS: methylPREDNISolone SOD SUCC 40 MG/1 ML VIAL IV PUSH SCH (09:21)
[2017-07-19] MEDS: guaiFENesin E.R. 600 MG TAB PO SCH ×2 (09:22→21:00)
[2017-07-19] MEDS: CHOLECALCIFEROL (VIT D3) 5000 UNIT CAP PO SCH (09:22)
[2017-07-19] MEDS: METOPROLOL TARTRATE 25 MG TAB PO SCH ×2 (09:22→21:00)
[2017-07-19] MEDS: HEPARIN SODIUM - SQ 10,000 UNITS/ML VIAL SQ SCH ×2 (09:23→20:20)
[2017-07-19] MEDS: INSULIN DETEMIR 100 UNITS/ML VIAL SQ SCH ×2 (09:23→21:00)
[2017-07-19] MEDS: BUDESONIDE-FORMOTEROL 160/4.5 MCG INHALER INH SCH ×2 (09:23→21:00)
[2017-07-19] MEDS: SODIUM CHLORIDE 0.9% FLUSH 10 ML FLUSH IV FLUSH SCH ×2 (09:23→20:18)
--- NOTE | 2017-07-19 12:09 | HHI.PR ---
Subjective Remarks Patient and her wish to return home to get treatment for her cancer at home in [place]. have looked into medical flights. I discussed with case management. Objective Vitals Vital Signs Date Time Temp Pulse Resp B/P (MAP) Pulse Ox O2 Delivery O2 Flow Rate FiO2 07/19/17 07:56 97 Nasal Cannula 3.00 07/19/17 07:51 98.0 101 16 127/73 (91) 99 07/19/17 06:30 104 07/19/17 04:18 99 Nasal Cannula 5.00 07/19/17 04:02 93 Nasal Cannula 5.00 07/19/17 04:00 93 07/19/17 03:58 97.6 94 27 123/75 (91) 94 07/19/17 02:00 95 26 115/65 (82) 94 07/19/17 02:00 95 07/19/17 00:05 97 Nasal Cannula 4.00 07/19/17 00:00 96.7 93 24 105/59 (74) 97 07/19/17 00:00 93 07/19/17 00:00 97 Nasal Cannula 4.00 07/18/17 22:00 85 07/18/17 20:25 100 Nasal Cannula 4.00 07/18/17 20:00 98.2 101 23 111/55 (73) 99 07/18/17 20:00 101 07/18/17 20:00 99 Nasal Cannula 4.00 07/18/17 18:00 94 30 130/64 (86) 89 07/18/17 18:00 94 07/18/17 17:56 96 07/18/17 17:56 96 27 126/63 (84) 86 07/18/17 17:41 91 07/18/17 17:41 91 15 115/58 (77) 07/18/17 17:39 91 07/18/17 17:39 91 32 122/70 (87) 07/18/17 17:00 96 07/18/17 17:00 96 30 125/72 (89) 95 07/18/17 16:00 98 33 126/65 (85) 96 07/18/17 16:00 98 07/18/17 16:00 98 Nasal Cannula 6.00 21 07/18/17 14:00 97 20 112/74 (87) 97 3/23/18 14:00 97 20 112/74 (87) 97 07/18/17 14:00 97 07/18/17 14:00 97 07/18/17 13:01 100 26 126/73 (90) 96 07/18/17 13:01 100 07/18/17 13:01 100 26 126/73 (90) 96 I/O 07/18/17 07/18/17 07/18/17 07/19/17 07/19/17 07/19/17 07:00 15:00 23:00 07:00 15:00 23:00 Intake Total 400 ml 650 ml 300 ml Output Total 200 ml 900 ml Balance 200 ml -250 ml 300 ml Intake Oral 200 ml 650 ml 300 ml IV Total 200 ml Output Urine Total 200 ml 900 ml # Voids 1 2 Result Diagram: 07/19/17 0714 07/19/17 0714 Objective Remarks GENERAL: This is a well-nourished, well-developed patient, in no apparent distress. CARDIOVASCULAR: Normal rate and regular rhythm without murmurs, gallops, or rubs. RESPIRATORY: Diminished breath sounds. Otherwise clear to auscultation bilaterally GASTROINTESTINAL: Abdomen soft, non-tender, non-distended. Normal active bowel sounds MUSCULOSKELETAL: Extremities without cyanosis, or edema. NEURO: Alert & Oriented x4 to person, place, time, situation. Moves all ext x4 PSYCH: Appropriate mood and affect. A/P Problem List: (1) Respiratory failure with hypoxia ICD Code: J96.91 - Respiratory failure, unspecified with hypoxia Plan: Probably due to combination of lung cancer, underlying COPD. Much improved -Transition to oral steroid -Continue with supplemental oxygen. She improved and is now on 3 L nasal cannula. -Tobacco cessation advised (2) Squamous cell lung cancer ICD Code: C34.90 - Malignant neoplasm of unspecified part of unspecified bronchus or lung Plan: Patient seen by oncologist recommended radiation and chemotherapy. - Patient wishes to get treatment in her home town in [place]. - Case management on board to help arrange for transport. (3) UTI (urinary tract infection) ICD Code: N39.0 - Urinary tract infection, site not specified Plan: Urine culture growing Klebsiella pneumonia Transition to oral cefuroxime (4) Diabetes ICD Code: E11.9 - Type 2 diabetes mellitus without complications Plan: Continue sliding scale insulin with Accu-Cheks Levemir 10 units subcu twice daily Hemoglobin A1c of 11. Patient counseled on diabetic diet. (5) COPD (chronic obstructive pulmonary disease) ICD Code: J44.9 - Chronic obstructive pulmonary disease, unspecified Plan: Wean down to oral steroids. Continue supplemental oxygen - Continue Symbicort Continue breathing treatments as needed. (6) Tobacco abuse ICD Code: Z72.0 - Tobacco use Plan: Patient counseled on cessation. Discharge Planning Patient can be transferred to a hospital in [place] who can provide cancer treatment once arrangements are made. Discussed with case management. Jose Nair MD Jul 19, 2017 12:09
--- NOTE | 2017-07-19 15:18 | HHI.PR ---
Subjective Remarks 76 YOWF from [place], with H/O ductal ca breast, large rt lung mass Had CT guided rt lung bx No PTX Breathing better Bx Sq cell ca Objective Vital Signs Vital Signs Date Time Temp Pulse Resp B/P (MAP) Pulse Ox O2 Delivery O2 Flow Rate FiO2 07/19/17 13:00 97.8 97 18 118/82 (94) 92 07/19/17 07:56 97 Nasal Cannula 3.00 07/19/17 07:51 98.0 101 16 127/73 (91) 99 07/19/17 06:30 104 07/19/17 04:18 99 Nasal Cannula 5.00 07/19/17 04:02 93 Nasal Cannula 5.00 07/19/17 04:00 93 07/19/17 03:58 97.6 94 27 123/75 (91) 94 07/19/17 02:00 95 26 115/65 (82) 94 07/19/17 02:00 95 07/19/17 00:05 97 Nasal Cannula 4.00 07/19/17 00:00 96.7 93 24 105/59 (74) 97 07/19/17 00:00 93 07/19/17 00:00 97 Nasal Cannula 4.00 07/18/17 22:00 85 07/18/17 20:25 100 Nasal Cannula 4.00 07/18/17 20:00 98.2 101 23 111/55 (73) 99 07/18/17 20:00 101 07/18/17 20:00 99 Nasal Cannula 4.00 07/18/17 18:00 94 30 130/64 (86) 89 07/18/17 18:00 94 07/18/17 17:56 96 07/18/17 17:56 96 27 126/63 (84) 86 07/18/17 17:41 91 07/18/17 17:41 91 15 115/58 (77) 07/18/17 17:39 91 07/18/17 17:39 91 32 122/70 (87) 07/18/17 17:00 96 07/18/17 17:00 96 30 125/72 (89) 95 07/18/17 16:00 98 33 126/65 (85) 96 07/18/17 16:00 98 07/18/17 16:00 98 Nasal Cannula 6.00 21 I/O 07/18/17 07/18/17 07/18/17 07/19/17 07/19/17 07/19/17 06:59 14:59 22:59 06:59 14:59 22:59 Intake Total 400 ml 650 ml 300 ml Output Total 200 ml 900 ml Balance 200 ml -250 ml 300 ml Intake Oral 200 ml 650 ml 300 ml IV Total 200 ml Output Urine Total 200 ml 900 ml # Voids 1 2 Result Diagram: 07/19/1714 07/19/17713 Objective Remarks GENERAL: WBWN WF,NAD SKIN: Warm and dry. HEAD: Normocephalic. EYES: No scleral icterus. No injection or drainage. NECK: Supple, trachea midline. No JVD or lymphadenopathy. CARDIOVASCULAR: Regular rate and rhythm without murmurs, gallops, or rubs. RESPIRATORY: Breath sounds equal bilaterally. No accessory muscle use. GASTROINTESTINAL: Abdomen soft, non-tender, nondistended. MUSCULOSKELETAL: No cyanosis, or edema. BACK: Nontender without obvious deformity. No CVA tenderness. A/P Assessment and Plan IMPRESSION: 1. Large right upper lobe mass.--Sq cell Ca 2. Pretracheal lymph node. 3. Right shoulder pain. 4. History of nicotine use. 5. Carcinoma of the breast, status post lumpectomy and radiation treatment. 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
[2017-07-19] MEDS ORDERED: PILL SPLITTER OTHER PRN (15:45)
[2017-07-19] MEDS ORDERED: QUEtiapine FUMARATE 25 MG TAB PO ONE (16:00)
--- NOTE | 2017-07-19 16:47 | PD.ONC.PN ---
Subjective Subjective Remarks Afebrile Patient reports her and her spouse are still actively trying to get back to [place] Confirms she does not wish to begin any treatment here in [place] Reports her breathing is minimally improved Objective Data Date Time Temp Pulse Resp B/P (MAP) Pulse Ox O2 Delivery O2 Flow Rate FiO2 07/19/17 16:00 97.7 107 22 148/92 (110) 90 07/19/17 13:00 97.8 97 18 118/82 (94) 92 07/19/17 07:56 97 Nasal Cannula 3.00 07/19/17 07:51 98.0 101 16 127/73 (91) 99 07/19/17 06:30 104 07/19/17 04:18 99 Nasal Cannula 5.00 07/19/17 04:02 93 Nasal Cannula 5.00 07/19/17 04:00 93 07/19/17 03:58 97.6 94 27 123/75 (91) 94 07/19/17 02:00 95 26 115/65 (82) 94 07/19/17 02:00 95 07/19/17 00:05 97 Nasal Cannula 4.00 07/19/17 00:00 96.7 93 24 105/59 (74) 97 07/19/17 00:00 93 07/19/17 00:00 97 Nasal Cannula 4.00 07/18/17 22:00 85 07/18/17 20:25 100 Nasal Cannula 4.00 07/18/17 20:00 98.2 101 23 111/55 (73) 99 07/18/17 20:00 101 07/18/17 20:00 99 Nasal Cannula 4.00 07/18/17 18:00 94 30 130/64 (86) 89 07/18/17 18:00 94 07/18/17 17:56 96 07/18/17 17:56 96 27 126/63 (84) 86 07/18/17 17:41 91 07/18/17 17:41 91 15 115/58 (77) 07/18/17 17:39 91 07/18/17 17:39 91 32 122/70 (87) 07/18/17 17:00 96 07/18/17 17:00 96 30 125/72 (89) 95 07/19/17 07/19/17 07/19/17 07:00 15:00 23:00 Intake Total 300 ml Balance 300 ml Result Diagram: 07/19/17 0714 07/19/17 0714 Laboratory Results Laboratory Tests Test 07/19/17 07:14 White Blood Count 11.6 TH/MM3 Red Blood Count 3.88 MIL/MM3 Hemoglobin 10.4 GM/DL Hematocrit 32.2 % Mean Corpuscular Volume 83.0 FL Mean Corpuscular Hemoglobin 26.8 PG Mean Corpuscular Hemoglobin Concent 32.2 % Red Cell Distribution Width 15.1 % Platelet Count 378 TH/MM3 Mean Platelet Volume 8.0 FL Neutrophils (%) (Auto) 85.7 % Lymphocytes (%) (Auto) 4.8 % Monocytes (%) (Auto) 9.4 % Eosinophils (%) (Auto) 0.0 % Basophils (%) (Auto) 0.1 % Neutrophils # (Auto) 9.9 TH/MM3 Lymphocytes # (Auto) 0.6 TH/MM3 Monocytes # (Auto) 1.1 TH/MM3 Eosinophils # (Auto) 0.0 TH/MM3 Basophils # (Auto) 0.0 TH/MM3 CBC Comment DIFF FINAL Differential Comment Blood Urea Nitrogen 16 MG/DL Creatinine 0.60 MG/DL Random Glucose 130 MG/DL Calcium Level 10.2 MG/DL Sodium Level 140 MEQ/L Potassium Level 3.5 MEQ/L Chloride Level 94 MEQ/L Carbon Dioxide Level 40.3 MEQ/L Anion Gap 6 MEQ/L Estimat Glomerular Filtration Rate 98 ML/MIN Administered Medications Medications (Trade) Dose Ordered Sig/Jennifer Route PRN Reason Start Time Stop Time Status Last Admin Dose Admin Sodium Chloride (NS Flush) 2 ml UNSCH PRN IV FLUSH FLUSH AFTER USING IV ACCESS 07/14/17 16:30 07/15/17 03:51 Sodium Chloride (NS Flush) 2 ml BID IV FLUSH 07/14/17 21:00 07/19/17 09:23 Albuterol/ Ipratropium (Duoneb Neb) 1 ampule Q2HR NEB PRN NEB dyspnea 07/14/17 17:45 07/15/17 04:25 Cholecalciferol (Vitamin D3) 5,000 units DAILY PO 07/15/17 10:00 07/19/17 09:22 Acetaminophen (Tylenol) 650 mg Q4H PRN PO temp > 100.4 07/15/17 23:00 07/15/17 23:32 Insulin Detemir (Levemir Inj) 10 units BID SQ 07/17/17 10:00 07/19/17 09:23 Guaifenesin (Mucinex Er) 600 mg BID PO 07/17/17 10:00 07/19/17 09:22 Budesonide/ Formoterol Fumarate (Symbicort 160-4.5 Mcg Inh) 2 puff Q12HR INH 07/17/17 21:00 07/19/17 09:23 Albuterol/ Ipratropium (Duoneb Neb) 1 ampule Q4HR NEB NEB 07/17/17 20:00 07/19/17 14:34 Insulin Human Regular (NovoLIN R SUPPLEMENTAL SCALE) 1 Q4HR SQ 07/18/17 00:00 07/19/17 12:00 Heparin Sodium (Porcine) (Heparin Inj) 5,000 units Q12HR SQ 07/17/17 21:00 07/19/17 09:23 Metoprolol Tartrate (Lopressor) 25 mg Q12HR PO 07/18/17 10:00 07/19/17 09:22 Objective Remarks GENERAL: Older female sitting up on bedside commode in no obvious distress SKIN: Warm and dry. HEAD: Normocephalic. EYES: No injection or drainage. NECK: Supple, trachea midline CARDIOVASCULAR: Regular rate and rhythm without murmurs. RESPIRATORY: Diminished breath sounds to right upper lobe GASTROINTESTINAL: Abdomen soft, non-tender, nondistended. EXTREMITIES: No cyanosis, or edema. MUSCULOSKELETAL: Generalized weakness NEUROLOGICAL: No obvious focal deficit. Awake, alert, and oriented x3. Assessment/Plan Problem List: (1) Squamous cell lung cancer ICD Codes: C34.90 - Malignant neoplasm of unspecified part of unspecified bronchus or lung Plan: --The patient wishes to initiate all therapy in [place] Hx/Workup: 76-year-old female with a history of ductal carcinoma in situ of the left breast that was diagnosed in 2008. She began to develop shortness of breath approximately a week ago and chest x-ray showed a mass in the right chest measuring 10 x 7 cm. The patient underwent a CT-guided needle biopsy that revealed a squamous cell carcinoma. Assessment 76-year-old female with history of ductal carcinoma in situ left breast with new diagnosis of lung cancer Plan 1. Clear for discharge from oncology standpoint once arrangements can be made for transfer back to [place] 2. Supportive care Attending Statement The exam, history, and the medical decision-making described in the above note were completed with the assistance of the mid-level provider. I reviewed and agree with the findings presented. I attest that I had a [id number] encounter with the patient on the same day, and personally performed and documented my assessment and findings in the medical record. 76 yoF with newly diagnosed SCC of the lung. She has been recommended to receive concurrent chemotherapy and radiation therapy. She wishes to receive her care in [place]. Patient seen at bedside after having received nightly seroquel and is drowsy from this medication. Problem Qualifiers (1) Squamous cell lung cancer: Qualified Codes: C34.91 - Malignant neoplasm of unspecified part of right bronchus or lung Yvonne Man Jul 19, 2017 16:47 Donna Jaquez MD Jul 19, 2017 20:46
[2017-07-19] MEDS: FAMOTIDINE 20 MG TAB PO SCH (17:15)
[2017-07-19] MEDS ORDERED: predniSONE 20 MG TAB PO SCH (18:00)
[2017-07-19] MEDS: CEFUROXIME AXETIL 250 MG TAB PO SCH (21:00)
[2017-07-20] VITALS (19 sets, daily range): BP systolic 121–151; BP diastolic 73–88; PULSE 73–112; RESP 12–22; TEMP 96–99.5; O2SAT 93–100
[2017-07-20] MEDS: RESP: ALBUTEROL 2.5 MG/IPRATROPIUM 0.5 MG NEB (SCH) NEB ×6 (03:02→23:58)
[2017-07-20] MEDS: INSULIN NovoLIN REGULAR SUPPLEMENTAL SCALE SQ SCH ×5 (04:00→20:00)
[2017-07-20] MEDS: METOPROLOL TARTRATE 25 MG TAB PO SCH ×3 (04:07→20:57)
[2017-07-20] MEDS: CEFUROXIME AXETIL 250 MG TAB PO SCH ×4 (04:07→21:00)
[2017-07-20] MEDS: guaiFENesin E.R. 600 MG TAB PO SCH ×4 (04:23→21:00)
[2017-07-20] MEDS: FAMOTIDINE 20 MG TAB PO SCH ×2 (05:12→18:00)
--- NOTE | 2017-07-20 07:58 | RADRPT ---
EXAM DATE/TIME: 07/20/2017 07:36 [facility] COMPARISON: CT THORAX W/O CONTRAST, July 15, 2017, 0:48. CHEST SINGLE AP, July 14, 2017, 13:43. INDICATIONS : Short of breath. MEDICAL HISTORY : Carcinoma, breast. Right lung mass. SURGICAL HISTORY : Appendectomy. Left breast lumpectomy. ENCOUNTER: Subsequent ACUITY: 1 week PAIN SCORE: 0/10 LOCATION: Bilateral chest FINDINGS: The right upper lobe mass is unchanged. There is elevation of the right hemidiaphragm. No pneumothora x is noted. The heart is stable. No acute infiltrate is noted. A screw is noted within left clavicle. CONCLUSION: Stable right upper lobe mass. Elevation of the right hemidiaphragm. Kit Alcaraz MD on July 20, 2017 at 7:52 Board Certified Radiologist. This report was verified electronically.
--- NOTE | 2017-07-20 08:19 | HHI.PR ---
Subjective Remarks Notified by nursing this morning the patient respiratory status worsened. Oxygen saturation was dropping into the 70s and she required a simple mask. Was using accessory muscles and tachypneic. Patient evaluated. She is confused but can answer simple yes or no questions. Objective Vitals Vital Signs Date Time Temp Pulse Resp B/P (MAP) Pulse Ox O2 Delivery O2 Flow Rate FiO2 07/20/17 07:29 100 Simple Mask 10.00 07/20/17 05:00 94 07/20/17 04:00 111 07/20/17 04:00 Nasal Cannula 4.00 21 07/20/17 04:00 96.0 110 22 151/88 (109) 97 07/20/17 03:00 112 07/20/17 02:00 100 07/20/17 01:00 104 07/20/17 00:00 Nasal Cannula 2.50 21 07/20/17 00:00 106 07/20/17 00:00 97.9 103 20 143/84 (103) 97 07/19/17 23:00 98 07/19/17 22:00 96 07/19/17 21:00 100 07/19/17 20:00 Nasal Cannula 3.00 21 07/19/17 20:00 97.1 97 20 126/82 (97) 94 07/19/17 20:00 101 07/19/17 19:00 102 07/19/17 16:00 97.7 107 22 148/92 (110) 90 07/19/17 13:00 97.8 97 18 118/82 (94) 92 I/O 07/19/17 07/19/17 07/19/17 07/20/17 07/20/17 07/20/17 07:00 15:00 23:00 07:00 15:00 23:00 Intake Total 300 ml 460 ml 240 ml Output Total 900 ml 300 ml Balance 300 ml -440 ml -60 ml Intake Oral 300 ml 360 ml 240 ml IV Total 100 ml Output Urine Total 900 ml 300 ml # Voids 2 Result Diagram: 07/19/1771307/19/17713 Objective Remarks GENERAL: Elderly female in mild respiratory distress CARDIOVASCULAR: Normal rate and regular rhythm without murmurs, gallops, or rubs. RESPIRATORY: Markedly diminished breath sounds bilaterally. Faint expiratory wheezing throughout. GASTROINTESTINAL: Abdomen soft, non-tender, non-distended. Normal active bowel sounds MUSCULOSKELETAL: Extremities without cyanosis, or edema. NEURO: Awake, confused, moves all extremities. Can answer simple yes or no questions. Follow some commands. A/P Problem List: (1) Respiratory failure with hypoxia ICD Code: J96.91 - Respiratory failure, unspecified with hypoxia Plan: Acute worsening of respiratory failure. Probably due to combination of lung cancer, underlying COPD. Respiratory status worsened this morning. Blood gas and chest x-ray reviewed. -Restart back on IV Solu-Medrol. -Start BiPAP -Transfer to ICU. At risk for further decline and needs closer monitoring. (2) Squamous cell lung cancer ICD Code: C34.90 - Malignant neoplasm of unspecified part of unspecified bronchus or lung Plan: Patient seen by oncologist recommended radiation and chemotherapy. - Patient wishes to get treatment in her home town in [place]. Currently too unstable to travel. - Case management on board to help arrange for transport. (3) UTI (urinary tract infection) ICD Code: N39.0 - Urinary tract infection, site not specified Plan: Urine culture growing Klebsiella pneumonia Continue cefuroxime (4) Diabetes ICD Code: E11.9 - Type 2 diabetes mellitus without complications Plan: Continue sliding scale insulin with Accu-Cheks Levemir 10 units subcu twice daily Hemoglobin A1c of 11. Patient counseled on diabetic diet. (5) COPD (chronic obstructive pulmonary disease) ICD Code: J44.9 - Chronic obstructive pulmonary disease, unspecified Plan: Respiratory status worse today. Restart IV Solu-Medrol -Appreciate pulmonology input -BiPAP - Continue Symbicort - Continue breathing treatments as needed. (6) Tobacco abuse ICD Code: Z72.0 - Tobacco use Plan: Patient previously counseled on cessation. (7) Acute encephalopathy ICD Code: G93.40 - Encephalopathy, unspecified Plan: Probably secondary to hypercapnia and respiratory failure. - Follow closely with neuro checks. - Check ammonia levels. - Ativan PRN for severe agitation. Discharge Planning Transfer to ICU. High risk for further respiratory decline. She needs close monitoring. Patient's family does wish to have her transferred to the hospital in [place] so she can get cancer treatment. However patient is not stable for travel. Problem Qualifiers (1) Respiratory failure with hypoxia: Qualified Codes: J96.01 - Acute respiratory failure with hypoxia (2) Squamous cell lung cancer: Qualified Codes: C34.91 - Malignant neoplasm of unspecified part of right bronchus or lung Jose Nair MD Jul 20, 2017 08:19
[2017-07-20] MEDS ORDERED: LORazepam 2 MG/ML VIAL IV PUSH PRN (08:30)
[2017-07-20] MEDS: CHOLECALCIFEROL (VIT D3) 5000 UNIT CAP PO SCH (09:00)
[2017-07-20] MEDS: INSULIN DETEMIR 100 UNITS/ML VIAL SQ SCH ×2 (09:00→21:00)
[2017-07-20] MEDS: BUDESONIDE-FORMOTEROL 160/4.5 MCG INHALER INH SCH ×2 (09:00→21:00)
--- NOTE | 2017-07-20 10:58 | PD.ONC.PN ---
Subjective Subjective Remarks Afebrile overnight Patient was a Halicat overnight Per RN, her mentation changed, O2 sats dropped requiring use of BiPAP Objective Data Date Time Temp Pulse Resp B/P (MAP) Pulse Ox O2 Delivery O2 Flow Rate FiO2 07/20/17 08:58 100 45 07/20/17 08:28 94 6.00 07/20/17 07:29 100 Simple Mask 10.00 07/20/17 05:00 94 07/20/17 04:00 111 07/20/17 04:00 Nasal Cannula 4.00 21 07/20/17 04:00 96.0 110 22 151/88 (109) 97 07/20/17 03:00 112 07/20/17 02:00 100 07/20/17 01:00 104 07/20/17 00:00 Nasal Cannula 2.50 21 07/20/17 00:00 106 07/20/17 00:00 97.9 103 20 143/84 (103) 97 07/19/17 23:00 98 07/19/17 22:00 96 07/19/17 21:00 100 07/19/17 20:00 Nasal Cannula 3.00 21 07/19/17 20:00 97.1 97 20 126/82 (97) 94 07/19/17 20:00 101 07/19/17 19:00 102 07/19/17 16:00 97.7 107 22 148/92 (110) 90 07/19/17 13:00 97.8 97 18 118/82 (94) 92 07/20/17 07/20/17 07/20/17 06:59 14:59 22:59 Intake Total 240 ml Output Total 300 ml Balance -60 ml Result Diagram: 07/19/17 0714 07/19/17713 Laboratory Results Laboratory Tests Test 07/20/17 07:47 Blood Gas Puncture Site LT RADIAL Blood Gas Patient Temperature 98.6 Blood Gas HCO3 39 mmol/L Blood Gas Base Excess 12.8 mmol/L Blood Gas Oxygen Saturation 96 % Arterial Blood pH 7.35 Arterial Blood Partial Pressure CO2 72 mmHg Arterial Blood Partial Pressure O2 137 mmHg Arterial Blood Oxygen Content 14.5 Vol % Arterial Blood Carboxyhemoglobin 1.1 % Arterial Blood Methemoglobin 1.1 % Blood Gas Hemoglobin 10.6 G/DL Oxygen Delivery Device MASK Blood Gas Liter Flow 10 L/M Administered Medications Medications (Trade) Dose Ordered Sig/Jennifer Route PRN Reason Start Time Stop Time Status Last Admin Dose Admin Sodium Chloride (NS Flush) 2 ml UNSCH PRN IV FLUSH FLUSH AFTER USING IV ACCESS 07/14/17 16:30 07/15/17 03:51 Sodium Chloride (NS Flush) 2 ml BID IV FLUSH 07/14/17 21:00 07/19/17 20:18 Albuterol/ Ipratropium (Duoneb Neb) 1 ampule Q2HR NEB PRN NEB dyspnea 07/14/17 17:45 07/15/17 04:25 Cholecalciferol (Vitamin D3) 5,000 units DAILY PO 07/15/17 10:00 07/19/17 09:22 Acetaminophen (Tylenol) 650 mg Q4H PRN PO temp > 100.4 07/15/17 23:00 07/15/17 23:32 Insulin Detemir (Levemir Inj) 10 units BID SQ 07/17/17 10:00 07/19/17 09:23 Guaifenesin (Mucinex Er) 600 mg BID PO 07/17/17 10:00 07/20/17 04:23 Budesonide/ Formoterol Fumarate (Symbicort 160-4.5 Mcg Inh) 2 puff Q12HR INH 07/17/17 21:00 07/19/17 09:23 Albuterol/ Ipratropium (Duoneb Neb) 1 ampule Q4HR NEB NEB 07/17/17 20:00 07/20/17 07:28 Insulin Human Regular (NovoLIN R SUPPLEMENTAL SCALE) 1 Q4HR SQ 07/18/17 00:00 07/19/17 16:00 Heparin Sodium (Porcine) (Heparin Inj) 5,000 units Q12HR SQ 07/17/17 21:00 07/19/17 20:20 Metoprolol Tartrate (Lopressor) 25 mg Q12HR PO 07/18/17 10:00 07/20/17 04:07 Cefuroxime Axetil (Ceftin) 250 mg Q12HR PO 07/19/17 21:00 07/24/17 20:59 07/20/17 04:07 Famotidine (Pepcid) 20 mg Q12H PO 07/19/17 18:00 07/20/17 05:12 Objective Remarks GENERAL: Frail elderly female resting in bed on BiPAP SKIN: Warm and dry. HEAD: Normocephalic. EYES: No injection or drainage. NECK: Supple, trachea midline. CARDIOVASCULAR: Regular rate and rhythm without murmurs. RESPIRATORY: On BiPAP. Breathing currently appears unlabored GASTROINTESTINAL: Abdomen soft, non-tender, nondistended. EXTREMITIES: No cyanosis MUSCULOSKELETAL: Adequate muscle tone. NEUROLOGICAL: Confused. Answering simple yes/no questions. Assessment/Plan Problem List: (1) Squamous cell lung cancer ICD Codes: C34.90 - Malignant neoplasm of unspecified part of unspecified bronchus or lung Plan: --The patient wishes to initiate all therapy in [place] --Patient would currently not be a candidate for any treatment with her respiratory failure Hx/Workup: 76-year-old female with a history of ductal carcinoma in situ of the left breast that was diagnosed in 2008. She began to develop shortness of breath approximately a week ago and chest x-ray showed a mass in the right chest measuring 10 x 7 cm. The patient underwent a CT-guided needle biopsy that revealed a squamous cell carcinoma. Assessment 76-year-old female with history of ductal carcinoma in situ left breast with new diagnosis of lung cancer Plan 1. The patient had status change overnight with altered mentation and increased O2 needs 2. She is currently not a candidate for medical transport or chemotherapy until her clinical condition improves Attending Statement The exam, history, and the medical decision-making described in the above note were completed with the assistance of the mid-level provider. I reviewed and agree with the findings presented. I attest that I had a [id number] encounter with the patient on the same day, and personally performed and documented my assessment and findings in the medical record. 76 yoF with history of breast cancer and now new diagnosis of SCC of the lung. Wishes to receive care in [place]. Oncology service will continue to follow. Problem Qualifiers (1) Squamous cell lung cancer: Qualified Codes: C34.91 - Malignant neoplasm of unspecified part of right bronchus or lung Yvonne Man Jul 20, 2017 10:58 Donna Jaquez MD Jul 20, 2017 16:03
--- NOTE | 2017-07-20 11:57 | HHI.CCPN ---
Subjective Remarks/Hospital Course Patient is a 76-year-old female with a past medical history of left breast cancer status post radiation and lumpectomy, hyperlipidemia and borderline diabetes mellitus. She presented to [place] ED on 07/15/2017 with a 2-3 day history of progressive worsening shortness of breath associated with a productive cough and intermittent wheezing. She denies any associated symptoms of chest pain, fever, chills or any constitutional symptoms. In addition, she denies any nausea, vomiting or abdominal pain. She had an ABG done on 07/16/2017 on 6 liter oxygen, which showed compensating respiratory acidosis with a pH of 7.38, CO2 of 70, bicarbonate 40 and saturation of 90%. Her initial chest x-ray on admission showed a mass in her right chest that measures approximately 10 x 7 cm[address] She had a [address] scan of the chest performed, which also showed right upper lobe lung mass that measures in excess of 10 cm and highly suspicious for malignancy. The patient underwent a CT guided lung biopsy of the lung mass yesterday. She was admitted under hospitalist service and started on bronchodilators and antibiotics for UTI. She was also seen by Dr. Shah from pulmonary service. The patient was transferred to [facility], room 505A, and critical care medicine was consulted for critical care management. However, when seen, the patient is awake, alert, looks comfortable, lying in bed in no acute respiratory distress. She is on 6 liter oxygen with a saturation of 95% to 97%, blood pressure 125/76 and slightly tachycardic with heart rate of 113. She denies any worsening dyspnea from baseline. The patient quit smoking a year ago and has a [id number] history of smoking. She denies any use of home oxygen or bronchodilators at home. 07/18 No events overnight. On 4L oxygen. Afebrile. 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 07/20 Reconsult for resp distress. Patient had ABG showed acute on chronic hypercapneic resp acidosis and was subsequently placed on BIPAP. Objective Vital Signs Date Time Temp Pulse Resp B/P (MAP) Pulse Ox O2 Delivery O2 Flow Rate FiO2 07/20/17 11:00 98.4 97 15 138/83 (101) 98 07/20/17 11:00 Bi-Pap 45 07/20/17 08:28 6.00 Intake and Output 07/20/17 07/20/17 07/21/17 08:00 16:00 00:00 Intake Total 240 ml Output Total 300 ml Balance -60 ml Result Diagram: 07/19/17 0714 07/19/17 0714 Other Results Laboratory Tests Test 07/20/17 07:47 Blood Gas Puncture Site LT RADIAL Blood Gas Patient Temperature 98.6 Blood Gas HCO3 39 mmol/L Blood Gas Base Excess 12.8 mmol/L Blood Gas Oxygen Saturation 96 % Arterial Blood pH 7.35 Arterial Blood Partial Pressure CO2 72 mmHg Arterial Blood Partial Pressure O2 137 mmHg Arterial Blood Oxygen Content 14.5 Vol % Arterial Blood Carboxyhemoglobin 1.1 % Arterial Blood Methemoglobin 1.1 % Blood Gas Hemoglobin 10.6 G/DL Oxygen Delivery Device MASK Blood Gas Liter Flow 10 L/M Imaging Last Impressions CT Angiography 07/17/17 0000 Signed Impressions: Service Date/Time: June 14:06 - CONCLUSION: 1. No evidence of pulmonary embolism. 2. Stable large right upper lobe mass and probable bronchogenic carcinoma as well as stable mediastinal and right hilar lymphadenopathy and tiny pleural-based right upper lobe nodule measuring 6 mm. 3. Small right pleural effusion. 4. Peripheral subpleural emphysematous changes and fibrotic scarring bilaterally. 5. Cardiomegaly. 6. Mild compression deformity involving T7 and minimal compression deformity involving T11 of indeterminate ages. 7. Degenerative changes and scoliosis of the thoracic spine. Kit Alcaraz MD Lung Biopsy CT 07/16/17 0000 Signed Impressions: Service Date/Time: Sunday, July 16, 2017 09:21 - CONCLUSION: Uncomplicated CT guided biopsy. Lewis Villa MD Head CT 07/16/17 0000 Signed Impressions: Service Date/Time: Sunday, July 16, 2017 14:28 - CONCLUSION: Normal examination. Júnior Rose MD Chest X-Ray 07/16/17 0000 Signed Impressions: Service Date/Time: Sunday, July 16, 2017 10:07 - CONCLUSION: No pneumothorax Júnior Rose MD Chest CT 07/15/17 0000 Signed Impressions: Service Date/Time: Saturday, July 15, 2017 00:48 - CONCLUSION: Right upper lung mass measures in excess of 10 cm and is highly suspicious for malignancy. There is also a 4 cm pretracheal mediastinal mass. Sravan Blanco MD Objective Remarks GENERAL: Patient is 76 yo lying in bed in [facility] SKIN: Warm and dry. HEAD: Normocephalic. EYES: No scleral icterus. No injection or drainage. NECK: Supple, trachea midline. No JVD or lymphadenopathy. CARDIOVASCULAR: Tachycardic without murmurs, gallops, or rubs. RESPIRATORY: Breath sounds equal bilaterally. No accessory muscle use. GASTROINTESTINAL: Abdomen soft, non-tender, nondistended. MUSCULOSKELETAL: No cyanosis, or edema. Neuro: awake and alert A/P Assessment and Plan 1. [id number] hypercapnic respiratory acidosis. 2. Recent diagnosis Squamous cell ca 3. Tobacco abuse. 4. COPD 5. Obesity. 6. Leukocytosis. 7. Hyperglycemia. 8. Anemia. 9. UTI with urine culture positive for Klebsiella pneumoniae. 10. History of breast carcinoma. Plan Neuro: -Monitor neuro status closely and avoid any sedatives. Pulm: Continue with oxygen and maintain sats >92%. Bronchodilators ( DuoNeb ,Symbicort) , on Solu-Medrol 40 mg IV q.8 Continue BIPAP repeat ABG if there is any woreseing of resp acidosis or clinical condition will proceed with intubation Pulm is following- Dr. Pablo Soliz showed Squamous cell ca of lung Give Diamox 250mg IV x1 CXR this morning stable RUL lung mass, elevated right hemidiaphragm CV: on Lopressor 25mg Q12- Monitor HR and BP and maintain MAP> 65 mmHg. GI: On Pepcid for gastrointestinal prophylaxis, on PO diet ID: Continue abx(Ceftin) Monitor for signs infections(fever and WBC) check UA with cx if needed Heme: Monitor CBC. Onc and rad/onc are following. Patient wishes to initiate all therapy in [place] per Onc. Path showed Squamous cell ca of lung, Endo: SSI with Accu-Cheks. Levemir 10 units b.i.d. GI prophylaxis with Pepcid and DVT prophylaxis with SCDs and heparin subq. Check labs today Level 3 Lc Gonzalez MD Jul 20, 2017 11:57
[2017-07-20] MEDS: HEPARIN SODIUM - SQ 10,000 UNITS/ML VIAL SQ SCH ×2 (13:09→20:57)
[2017-07-20] MEDS: SODIUM CHLORIDE 0.9% FLUSH 10 ML FLUSH IV FLUSH SCH ×2 (13:09→20:57)
[2017-07-20] MEDS: methylPREDNISolone SOD SUCC 40 MG/1 ML VIAL IV PUSH SCH ×3 (13:09→21:12)
[2017-07-20 14:11] LABS: AUTOMATED NEUTROPHIL # 10.1 TH/MM3 (1.8-7.7); BASOPHIL % 0.1 % (0.0-2.0); HEMATOCRIT 33.4 % (35.0-46.0); HEMOGLOBIN 10.4 GM/DL (11.6-15.3); LYMPH % 6.4 % (9.0-44.0); LYMPHOCYTE # 0.8 TH/MM3 (1.0-4.8); MEAN CELL VOLUME 83.1 FL (80.0-100.0); MEAN CORPUSCULAR HGB CONC 31.3 % (32.0-36.0); MEAN PLATELET VOLUME 9.1 FL (7.0-11.0); MONO % 13.7 % (0.0-8.0); MONOCYTE # 1.7 TH/MM3 (0-0.9); NEUT % 79.8 % (16.0-70.0); PLATELET COUNT 261 TH/MM3 (150-450); RED BLOOD COUNT 4.02 MIL/MM3 (4.00-5.30); RED CELL DISTRIBUTION WIDTH 15.5 % (11.6-17.2); WHITE BLOOD COUNT 12.7 TH/MM3 (4.0-11.0)
[2017-07-20 16:59] LABS: BICARBONATE 40.7 MEQ/L (21.0-32.0); CALCIUM 9.9 MG/DL (8.5-10.1); CREATININE 0.55 MG/DL (0.50-1.00)
[2017-07-21] VITALS (23 sets, daily range): BP systolic 105–144; BP diastolic 55–79; PULSE 72–99; RESP 18–20; TEMP 97.6–99.2; O2SAT 92–99
[2017-07-21] MEDS: RESP: ALBUTEROL 2.5 MG/IPRATROPIUM 0.5 MG NEB (SCH) NEB ×4 (03:18→15:52)
[2017-07-21] MEDS: INSULIN NovoLIN REGULAR SUPPLEMENTAL SCALE SQ SCH ×6 (04:00→19:58)
[2017-07-21 04:33] LABS: AUTOMATED NEUTROPHIL # 8.3 TH/MM3 (1.8-7.7); BASOPHIL % 0.1 % (0.0-2.0); HEMATOCRIT 32.1 % (35.0-46.0); LYMPH % 3.9 % (9.0-44.0); LYMPHOCYTE # 0.4 TH/MM3 (1.0-4.8); MEAN CELL VOLUME 82.1 FL (80.0-100.0); MEAN CORPUSCULAR HEMOGLOBIN 25.7 PG (27.0-34.0); MEAN CORPUSCULAR HGB CONC 31.3 % (32.0-36.0); MEAN PLATELET VOLUME 8.6 FL (7.0-11.0); MONO % 6.8 % (0.0-8.0); MONOCYTE # 0.6 TH/MM3 (0-0.9); NEUT % 89.2 % (16.0-70.0); PLATELET COUNT 308 TH/MM3 (150-450); RED CELL DISTRIBUTION WIDTH 15.6 % (11.6-17.2); WHITE BLOOD COUNT 9.3 TH/MM3 (4.0-11.0)
[2017-07-21 04:45] LABS: BICARBONATE 36.5 MEQ/L (21.0-32.0); CALCIUM 10.2 MG/DL (8.5-10.1); CREATININE 0.65 MG/DL (0.50-1.00)
[2017-07-21] MEDS: FAMOTIDINE 20 MG TAB PO SCH ×2 (06:00→18:47)
[2017-07-21] MEDS: methylPREDNISolone SOD SUCC 40 MG/1 ML VIAL IV PUSH SCH ×3 (06:00→22:51)
[2017-07-21] MEDS: INSULIN DETEMIR 100 UNITS/ML VIAL SQ SCH ×2 (08:26→20:00)
[2017-07-21 08:31] LABS: AMORPHOUS SEDIMENT, URINE MOD; BILIRUBIN, URINE NEG (NEG); BLOOD, URINE NEG (NEG); GLUCOSE,URINE NEG (NEG); HYALINE CAST, URINE 2 /lpf (RARE); KETONE, URINE 40 mg/dL (NEG); NITRITE,URINE NEG (NEG); SQUAMOUS EPITHELIAL CELL URINE 3 /hpf (0-5); URINE COLOR YELLOW (YELLW/STRAW); URINE LEUKOCYTE ESTERASE SMALL (NEG)
[2017-07-21] MEDS: BUDESONIDE-FORMOTEROL 160/4.5 MCG INHALER INH SCH ×2 (10:19→22:43)
[2017-07-21] MEDS: SODIUM CHLORIDE 0.9% FLUSH 10 ML FLUSH IV FLUSH SCH ×2 (10:20→22:55)
[2017-07-21] MEDS: CHOLECALCIFEROL (VIT D3) 5000 UNIT CAP PO SCH (10:20)
[2017-07-21] MEDS: HEPARIN SODIUM - SQ 10,000 UNITS/ML VIAL SQ SCH ×2 (10:21→22:44)
[2017-07-21] MEDS: guaiFENesin E.R. 600 MG TAB PO SCH ×2 (10:21→22:44)
[2017-07-21] MEDS: CEFUROXIME AXETIL 250 MG TAB PO SCH ×2 (10:21→22:43)
[2017-07-21] MEDS: METOPROLOL TARTRATE 25 MG TAB PO SCH ×2 (10:21→22:47)
--- NOTE | 2017-07-21 10:55 | PD.ONC.PN ---
Subjective Subjective Remarks Tmax 99.5 last night Patient no longer on BiPAP; tolerating 6 L nasal cannula She reports she feels much better today Her and her spouse report their goal is to get back to [place] as quickly as possible Objective Data Date Time Temp Pulse Resp B/P (MAP) Pulse Ox O2 Delivery O2 Flow Rate FiO2 07/21/17 08:00 81 07/21/17 08:00 98.9 87 18 144/79 (100) 92 07/21/17 08:00 92 Nasal Cannula 6.00 07/21/17 07:52 93 Nasal Cannula 6.00 07/21/17 04:20 97 40 07/21/17 03:18 97 40 07/21/17 03:00 72 07/21/17 03:00 99.2 72 18 125/68 (87) 97 07/21/17 03:00 97 Bi-Pap 40 07/20/17 23:59 97 40 07/20/17 23:00 73 07/20/17 23:00 99.2 78 18 127/74 (91) 97 07/20/17 23:00 97 Bi-Pap 40 07/20/17 22:15 95 40 07/20/17 19:48 95 BiPAP 35 07/20/17 19:48 95 35 07/20/17 19:00 93 Bi-Pap 35 07/20/17 19:00 99.5 86 19 137/76 (96) 93 07/20/17 19:00 86 07/20/17 16:18 94 35 07/20/17 15:00 98 Bi-Pap 35 07/20/17 15:00 90 07/20/17 15:00 97.5 90 12 121/73 (89) 96 07/20/17 12:30 97 40 07/20/17 11:00 94 07/20/17 11:00 98.4 97 15 138/83 (101) 98 07/20/17 11:00 98 Bi-Pap 45 07/21/17 07/21/17 07/21/17 07:00 15:00 23:00 Intake Total 50 ml Output Total 650 ml Balance -600 ml Result Diagram: 07/21/17 0338 07/21/17 0338 Laboratory Results Laboratory Tests Test 07/20/17 12:40 07/20/17 13:25 07/20/17 16:00 07/21/17 03:38 White Blood Count 12.7 TH/MM3 9.3 TH/MM3 Red Blood Count 4.02 MIL/MM3 3.90 MIL/MM3 Hemoglobin 10.4 GM/DL 10.0 GM/DL Hematocrit 33.4 % 32.1 % Mean Corpuscular Volume 83.1 FL 82.1 FL Mean Corpuscular Hemoglobin 26.0 PG 25.7 PG Mean Corpuscular Hemoglobin Concent 31.3 % 31.3 % Red Cell Distribution Width 15.5 % 15.6 % Platelet Count 261 TH/MM3 308 TH/MM3 Mean Platelet Volume 9.1 FL 8.6 FL Neutrophils (%) (Auto) 79.8 % 89.2 % Lymphocytes (%) (Auto) 6.4 % 3.9 % Monocytes (%) (Auto) 13.7 % 6.8 % Eosinophils (%) (Auto) 0.0 % 0.0 % Basophils (%) (Auto) 0.1 % 0.1 % Neutrophils # (Auto) 10.1 TH/MM3 8.3 TH/MM3 Lymphocytes # (Auto) 0.8 TH/MM3 0.4 TH/MM3 Monocytes # (Auto) 1.7 TH/MM3 0.6 TH/MM3 Eosinophils # (Auto) 0.0 TH/MM3 0.0 TH/MM3 Basophils # (Auto) 0.0 TH/MM3 0.0 TH/MM3 CBC Comment DIFF FINAL DIFF FINAL Differential Comment B-Type Natriuretic Peptide 459 PG/ML Blood Gas Puncture Site RT RADIAL Blood Gas Patient Temperature 98.6 Blood Gas HCO3 38 mmol/L Blood Gas Base Excess 13.4 mmol/L Blood Gas Oxygen Saturation 94 % Arterial Blood pH 7.45 Arterial Blood Partial Pressure CO2 56 mmHg Arterial Blood Partial Pressure O2 83 mmHg Arterial Blood Oxygen Content 14.1 Vol % Arterial Blood Carboxyhemoglobin 1.2 % Arterial Blood Methemoglobin 1.1 % Blood Gas Hemoglobin 10.6 G/DL Oxygen Delivery Device BIPAP Blood Gas Ventilator Setting [id number] Blood Gas Inspired Oxygen 35 % Blood Urea Nitrogen 18 MG/DL 25 MG/DL Creatinine 0.55 MG/DL 0.65 MG/DL Random Glucose 149 MG/DL 218 MG/DL Calcium Level 9.9 MG/DL 10.2 MG/DL Sodium Level 143 MEQ/L 141 MEQ/L Potassium Level 3.6 MEQ/L 3.6 MEQ/L Chloride Level 97 MEQ/L 97 MEQ/L Carbon Dioxide Level 40.7 MEQ/L 36.5 MEQ/L Anion Gap 5 MEQ/L 8 MEQ/L Estimat Glomerular Filtration Rate 108 ML/MIN 89 ML/MIN Test 07/21/17 07:30 Urine Color YELLOW Urine Turbidity CLOUDY Urine pH 7.0 Urine Specific [place] 1.016 Urine Protein NEG mg/dL Urine Glucose (UA) NEG mg/dL Urine Ketones 40 mg/dL Urine Occult Blood NEG Urine Nitrite NEG Urine Bilirubin NEG Urine Urobilinogen LESS THAN 2.0 MG/DL Urine Leukocyte Esterase SMALL Urine RBC 1 /hpf Urine WBC 4 /hpf Urine Squamous Epithelial Cells 3 /hpf Urine Amorphous Sediment MOD Urine Hyaline Casts 2 /lpf Microscopic Urinalysis Comment CULT NOT INDICATED Administered Medications Medications (Trade) Dose Ordered Sig/Jennifer Route PRN Reason Start Time Stop Time Status Last Admin Dose Admin Sodium Chloride (NS Flush) 2 ml UNSCH PRN IV FLUSH FLUSH AFTER USING IV ACCESS 07/14/17 16:30 07/15/17 03:51 Sodium Chloride (NS Flush) 2 ml BID IV FLUSH 07/14/17 21:00 07/21/17 10:20 Albuterol/ Ipratropium (Duoneb Neb) 1 ampule Q2HR NEB PRN NEB dyspnea 07/14/17 17:45 07/15/17 04:25 Cholecalciferol (Vitamin D3) 5,000 units DAILY PO 07/15/17 10:00 07/21/17 10:20 Acetaminophen (Tylenol) 650 mg Q4H PRN PO temp > 100.4 07/15/17 23:00 07/15/17 23:32 Insulin Detemir (Levemir Inj) 10 units BID SQ 07/17/17 10:00 07/21/17 08:26 Guaifenesin (Mucinex Er) 600 mg BID PO 07/17/17 10:00 07/21/17 10:21 Budesonide/ Formoterol Fumarate (Symbicort 160-4.5 Mcg Inh) 2 puff Q12HR INH 07/17/17 21:00 07/21/17 10:19 Albuterol/ Ipratropium (Duoneb Neb) 1 ampule Q4HR NEB NEB 07/17/17 20:00 07/21/17 07:51 Insulin Human Regular (NovoLIN R SUPPLEMENTAL SCALE) 1 Q4HR SQ 07/18/17 00:00 07/21/17 08:27 Heparin Sodium (Porcine) (Heparin Inj) 5,000 units Q12HR SQ 07/17/17 21:00 07/21/17 10:21 Metoprolol Tartrate (Lopressor) 25 mg Q12HR PO 07/18/17 10:00 07/21/17 10:21 Cefuroxime Axetil (Ceftin) 250 mg Q12HR PO 07/19/17 21:00 07/24/17 20:59 07/21/17 10:21 Famotidine (Pepcid) 20 mg Q12H PO 07/19/17 18:00 07/21/17 06:00 Methylprednisolone Sodium Succinate (SoluMEDROL INJ) 40 mg Q8HR IV PUSH 07/20/17 09:00 07/21/17 06:00 Objective Remarks GENERAL: Disheveled elderly female sitting up on side of bed. She appears minimally winded with conversation SKIN: Warm and dry. HEAD: Normocephalic. EYES: No injection or drainage. NECK: Supple, trachea midline. CARDIOVASCULAR: monitor worker shows sinus rhythm RESPIRATORY: Diminished to right upper lobe. On 6 L nasal cannula GASTROINTESTINAL: Abdomen soft, non-tender, nondistended. EXTREMITIES: No cyanosis, or edema. MUSCULOSKELETAL: Adequate muscle tone. NEUROLOGICAL: No obvious focal deficit. Awake, alert, and oriented x3. Assessment/Plan Problem List: (1) Squamous cell lung cancer ICD Codes: C34.90 - Malignant neoplasm of unspecified part of unspecified bronchus or lung Plan: --The patient wishes to initiate all therapy in [place] Hx/Workup: 76-year-old female with a history of ductal carcinoma in situ of the left breast that was diagnosed in 2008. She began to develop shortness of breath approximately a week ago and chest x-ray showed a mass in the right chest measuring 10 x 7 cm. The patient underwent a CT-guided needle biopsy that revealed a squamous cell carcinoma. Assessment 76-year-old female with history of ductal carcinoma in situ left breast with new diagnosis of lung cancer Plan 1. Patient's clinical status is much improved since yesterday; their goal is still to transfer back to [place] 2. Oncology service will continue to follow 3. Supportive care Attending Statement The exam, history, and the medical decision-making described in the above note were completed with the assistance of the mid-level provider. I reviewed and agree with the findings presented. I attest that I had a [id number] encounter with the patient on the same day, and personally performed and documented my assessment and findings in the medical record. Pt seen and examined. Determined to [facility]. Making arrangement with to have medical transport, from [place] to [facility] in [facility]. Do not have a name of admitting physician. Defer to working to arrange this. Pt stable and clinically improved. Decline therapy here. Problem Qualifiers (1) Squamous cell lung cancer: Qualified Codes: C34.91 - Malignant neoplasm of unspecified part of right bronchus or lung Yvonne Man Jul 21, 2017 10:55 Kathryn Omalley MD Jul 21, 2017 19:05
--- NOTE | 2017-07-21 12:47 | HHI.CCPN ---
Subjective Remarks/Hospital Course Patient is a 76-year-old female with a past medical history of left breast cancer status post radiation and lumpectomy, hyperlipidemia and borderline diabetes mellitus. She presented to [place] ED on 07/15/2017 with a 2-3 day history of progressive worsening shortness of breath associated with a productive cough and intermittent wheezing. She denies any associated symptoms of chest pain, fever, chills or any constitutional symptoms. In addition, she denies any nausea, vomiting or abdominal pain. She had an ABG done on 07/16/2017 on 6 liter oxygen, which showed compensating respiratory acidosis with a pH of 7.38, CO2 of 70, bicarbonate 40 and saturation of 90%. Her initial chest x-ray on admission showed a mass in her right chest that measures approximately 10 x [address] cm[address] She had a [address] scan of the chest performed, which also showed right upper lobe lung mass that measures in excess of 10 cm and highly suspicious for malignancy. The patient underwent a CT guided lung biopsy of the lung mass yesterday. She was admitted under hospitalist service and started on bronchodilators and antibiotics for UTI. She was also seen by Dr. Shah from pulmonary service. The patient was transferred to [facility], room 505A, and critical care medicine was consulted for critical care management. However, when seen, the patient is awake, alert, looks comfortable, lying in bed in no acute respiratory distress. She is on 6 liter oxygen with a saturation of 95% to 97%, blood pressure 125/76 and slightly tachycardic with heart rate of 113. She denies any worsening dyspnea from baseline. The patient quit smoking a year ago and has a [id number] history of smoking. She denies any use of home oxygen or bronchodilators at home. 07/18 No events overnight. On 4L oxygen. Afebrile. 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 07/20 Reconsult for resp distress. Patient had ABG showed acute on chronic hypercapneic resp acidosis and was subsequently placed on BIPAP. 07/21 Patient is off BIPAP. Awake and alert feeling better. Objective Vital Signs Date Time Temp Pulse Resp B/P (MAP) Pulse Ox O2 Delivery O2 Flow Rate FiO2 07/21/17 11:00 98 Nasal Cannula 6.00 07/21/17 11:00 98.7 85 18 130/67 (88) 07/21/17 04:20 40 Intake and Output 07/21/17 07/21/17 07/22/17 08:00 16:00 00:00 Intake Total 50 ml Output Total 650 ml Balance -600 ml Result Diagram: 07/21/17 0338 07/21/17 0338 Other Results Laboratory Tests Test 07/20/17 13:25 07/20/17 16:00 07/21/17 03:38 07/21/17 07:30 Blood Gas Puncture Site RT RADIAL Blood Gas Patient Temperature 98.6 Blood Gas HCO3 38 mmol/L Blood Gas Base Excess 13.4 mmol/L Blood Gas Oxygen Saturation 94 % Arterial Blood pH 7.45 Arterial Blood Partial Pressure CO2 56 mmHg Arterial Blood Partial Pressure O2 83 mmHg Arterial Blood Oxygen Content 14.1 Vol % Arterial Blood Carboxyhemoglobin 1.2 % Arterial Blood Methemoglobin 1.1 % Blood Gas Hemoglobin 10.6 G/DL Oxygen Delivery Device BIPAP Blood Gas Ventilator Setting [id number],EPAP5,PS13 Blood Gas Inspired Oxygen 35 % Blood Urea Nitrogen 18 MG/DL 25 MG/DL Creatinine 0.55 MG/DL 0.65 MG/DL Random Glucose 149 MG/DL 218 MG/DL Calcium Level 9.9 MG/DL 10.2 MG/DL Sodium Level 143 MEQ/L 141 MEQ/L Potassium Level 3.6 MEQ/L 3.6 MEQ/L Chloride Level 97 MEQ/L 97 MEQ/L Carbon Dioxide Level 40.7 MEQ/L 36.5 MEQ/L Anion Gap 5 MEQ/L 8 MEQ/L Estimat Glomerular Filtration Rate 108 ML/MIN 89 ML/MIN White Blood Count 9.3 TH/MM3 Red Blood Count 3.90 MIL/MM3 Hemoglobin 10.0 GM/DL Hematocrit 32.1 % Mean Corpuscular Volume 82.1 FL Mean Corpuscular Hemoglobin 25.7 PG Mean Corpuscular Hemoglobin Concent 31.3 % Red Cell Distribution Width 15.6 % Platelet Count 308 TH/MM3 Mean Platelet Volume 8.6 FL Neutrophils (%) (Auto) 89.2 % Lymphocytes (%) (Auto) 3.9 % Monocytes (%) (Auto) 6.8 % Eosinophils (%) (Auto) 0.0 % Basophils (%) (Auto) 0.1 % Neutrophils # (Auto) 8.3 TH/MM3 Lymphocytes # (Auto) 0.4 TH/MM3 Monocytes # (Auto) 0.6 TH/MM3 Eosinophils # (Auto) 0.0 TH/MM3 Basophils # (Auto) 0.0 TH/MM3 CBC Comment DIFF FINAL Differential Comment Urine Color YELLOW Urine Turbidity CLOUDY Urine pH 7.0 Urine Specific [place] 1.016 Urine Protein NEG mg/dL Urine Glucose (UA) NEG mg/dL Urine Ketones 40 mg/dL Urine Occult Blood NEG Urine Nitrite NEG Urine Bilirubin NEG Urine Urobilinogen LESS THAN 2.0 MG/DL Urine Leukocyte Esterase SMALL Urine RBC 1 /hpf Urine WBC 4 /hpf Urine Squamous Epithelial Cells 3 /hpf Urine Amorphous Sediment MOD Urine Hyaline Casts 2 /lpf Microscopic Urinalysis Comment CULT NOT INDICATED Imaging Last Impressions Chest X-Ray 07/20/17 0000 Signed Impressions: Service Date/Time: Thursday, July 20, 2017 07:36 - CONCLUSION: Stable right upper lobe mass. Elevation of the right hemidiaphragm. Kit Alcaraz MD CT Angiography 07/17/17 0000 Signed Impressions: Service Date/Time: June 14:06 - CONCLUSION: 1. No evidence of pulmonary embolism. 2. Stable large right upper lobe mass and probable bronchogenic carcinoma as well as stable mediastinal and right hilar lymphadenopathy and tiny pleural-based right upper lobe nodule measuring 6 mm. 3. Small right pleural effusion. 4. Peripheral subpleural emphysematous changes and fibrotic scarring bilaterally. 5. Cardiomegaly. 6. Mild compression deformity involving T7 and minimal compression deformity involving T11 of indeterminate ages. 7. Degenerative changes and scoliosis of the thoracic spine. Kit Alcaraz MD Lung Biopsy CT 07/16/17 0000 Signed Impressions: Service Date/Time: Sunday, July 16, 2017 09:21 - CONCLUSION: Uncomplicated CT guided biopsy. Lewis Villa MD Head CT 07/16/17 0000 Signed Impressions: Service Date/Time: Sunday, July 16, 2017 14:28 - CONCLUSION: Normal examination. Júnior Rose MD Chest CT 07/15/17 0000 Signed Impressions: Service Date/Time: Saturday, July 15, 2017 00:48 - CONCLUSION: Right upper lung mass measures in excess of 10 cm and is highly suspicious for malignancy. There is also a 4 cm pretracheal mediastinal mass. Sravan Blanco MD Objective Remarks GENERAL: Patient is 76 yo lying in bed in [facility] SKIN: Warm and dry. HEAD: Normocephalic. EYES: No scleral icterus. No injection or drainage. NECK: Supple, trachea midline. No JVD or lymphadenopathy. CARDIOVASCULAR: Tachycardic without murmurs, gallops, or rubs. RESPIRATORY: Breath sounds equal bilaterally. No accessory muscle use. GASTROINTESTINAL: Abdomen soft, non-tender, nondistended. MUSCULOSKELETAL: No cyanosis, or edema. Neuro: awake and alert A/P Assessment and Plan 1. Ihbuc-vc-[id number] hypercapnic respiratory acidosis. 2. Recent diagnosis Squamous cell ca 3. Tobacco abuse. 4. COPD 5. Obesity. 6. Leukocytosis. 7. Hyperglycemia. 8. Anemia. 9. UTI with urine culture positive for Klebsiella pneumoniae. 10. History of breast carcinoma. Plan Neuro: -Monitor neuro status closely and avoid any sedatives. Pulm: Continue with oxygen and maintain sats >92%. Bronchodilators ( DuoNeb ,Symbicort) , on Solu-Medrol 40 mg IV q.8 NIPPV PRN for resp distress. repeat ABG yesterday overall better Pulm is following- Dr. Pablo Soliz showed Squamous cell ca of lung CXR yesterday stable RUL lung mass, elevated right hemidiaphragm CV: on Lopressor 25mg Q12- Monitor HR and BP and maintain MAP> 65 mmHg. GI: On Pepcid for gastrointestinal prophylaxis, on PO diet ID: Continue abx(Ceftin) Monitor for signs infections(fever and WBC) c Heme: Monitor CBC. Onc and rad/onc are following. Patient wishes to initiate all therapy in [place] per Onc. Path showed Squamous cell ca of lung, Endo: SSI with Accu-Cheks. Levemir 10 units b.i.d. GI prophylaxis with Pepcid and DVT prophylaxis with SCDs and heparin subq. Will sign off and transfer care to [facility] Level 2 Lc Gonzalez MD Jul 21, 2017 12:47
--- NOTE | 2017-07-21 20:58 | HHI.PR ---
Subjective Remarks 76 YOWF from [place], with H/O ductal ca breast, large rt lung mass Had CT guided rt lung bx No PTX Breathing better Bx Sq cell ca Used BIPAP, now on NC Objective Vital Signs Vital Signs Date Time Temp Pulse Resp B/P (MAP) Pulse Ox O2 Delivery O2 Flow Rate FiO2 07/21/17 20:09 97 Nasal Cannula 6.00 07/21/17 19:39 97.6 99 18 113/60 (77) 98 07/21/17 19:00 98 07/21/17 18:00 94 07/21/17 17:05 98.6 97 18 138/75 (96) 96 07/21/17 17:00 94 07/21/17 16:00 84 07/21/17 15:00 94 07/21/17 14:00 90 07/21/17 13:00 90 18 113/75 (88) 99 07/21/17 13:00 88 07/21/17 11:00 98 Nasal Cannula 6.00 07/21/17 11:00 98.7 85 18 130/67 (88) 98 07/21/17 11:00 82 07/21/17 08:00 81 07/21/17 08:00 98.9 87 18 144/79 (100) 92 07/21/17 08:00 92 Nasal Cannula 6.00 07/21/17 07:52 93 Nasal Cannula 6.00 07/21/17 04:20 97 40 07/21/17 03:18 97 40 07/21/17 03:00 72 07/21/17 03:00 99.2 72 18 125/68 (87) 97 07/21/17 03:00 97 Bi-Pap 40 07/20/17 23:59 97 40 07/20/17 23:00 73 07/20/17 23:00 99.2 78 18 127/74 (91) 97 07/20/17 23:00 97 Bi-Pap 40 07/20/17 22:15 95 40 I/O 07/20/17 07/20/17 07/20/17 07/21/17 07/21/17 07/21/17 07:00 15:00 23:00 07:00 15:00 23:00 Intake Total 240 ml 30 ml 50 ml 474 ml Output Total 300 ml 500 ml 650 ml 500 ml Balance -60 ml -470 ml -600 ml -26 ml Intake Oral 240 ml 30 ml 50 ml 474 ml Output Urine Total 300 ml 500 ml 650 ml 500 ml Result Diagram: 07/21/1733707/21/17337 Objective Remarks GENERAL: WBWN WF,NAD SKIN: Warm and dry. HEAD: Normocephalic. EYES: No scleral icterus. No injection or drainage. NECK: Supple, trachea midline. No JVD or lymphadenopathy. CARDIOVASCULAR: Regular rate and rhythm without murmurs, gallops, or rubs. RESPIRATORY: Breath sounds equal bilaterally. No accessory muscle use. GASTROINTESTINAL: Abdomen soft, non-tender, nondistended. MUSCULOSKELETAL: No cyanosis, or edema. BACK: Nontender without obvious deformity. No CVA tenderness. A/P Assessment and Plan IMPRESSION: 1. Large right upper lobe mass.--Sq cell Ca 2. Pretracheal lymph node. 3. Right shoulder pain. 4. History of nicotine use. 5. Carcinoma of the breast, status post lumpectomy and radiation treatment. PLAN: Seen by Evaluate for home 02 Aerosol nebs Cont Abx Family considering taking her back to [place] or start treatment here LARISA pt and her Brady Shah MD Jul 21, 2017 20:58
[2017-07-22] VITALS (30 sets, daily range): BP systolic 108–130; BP diastolic 54–76; PULSE 73–109; RESP 18–20; TEMP 97.7–98.4; O2SAT 95–97
[2017-07-22] MEDS: INSULIN NovoLIN REGULAR SUPPLEMENTAL SCALE SQ SCH ×6 (00:13→21:37)
[2017-07-22] MEDS: FAMOTIDINE 20 MG TAB PO SCH ×2 (06:24→17:49)
[2017-07-22] MEDS: methylPREDNISolone SOD SUCC 40 MG/1 ML VIAL IV PUSH SCH ×3 (06:24→21:43)
[2017-07-22] MEDS: SODIUM CHLORIDE 0.9% FLUSH 10 ML FLUSH IV FLUSH PRN (06:26)
[2017-07-22] MEDS: INSULIN DETEMIR 100 UNITS/ML VIAL SQ SCH ×2 (08:37→21:36)
[2017-07-22] MEDS: CHOLECALCIFEROL (VIT D3) 5000 UNIT CAP PO SCH (09:18)
[2017-07-22] MEDS: METOPROLOL TARTRATE 25 MG TAB PO SCH ×2 (09:18→21:40)
[2017-07-22] MEDS: BUDESONIDE-FORMOTEROL 160/4.5 MCG INHALER INH SCH ×2 (09:18→21:38)
[2017-07-22] MEDS: CEFUROXIME AXETIL 250 MG TAB PO SCH ×2 (09:18→21:40)
[2017-07-22] MEDS: guaiFENesin E.R. 600 MG TAB PO SCH ×2 (09:18→21:40)
[2017-07-22] MEDS: HEPARIN SODIUM - SQ 10,000 UNITS/ML VIAL SQ SCH ×2 (09:19→21:41)
[2017-07-22] MEDS: SODIUM CHLORIDE 0.9% FLUSH 10 ML FLUSH IV FLUSH SCH ×2 (09:28→21:40)
[2017-07-22 09:31] LABS: AUTOMATED NEUTROPHIL # 12.9 TH/MM3 (1.8-7.7); BASOPHIL % 0.2 % (0.0-2.0); HEMATOCRIT 30.8 % (35.0-46.0); HEMOGLOBIN 9.7 GM/DL (11.6-15.3); LYMPH % 2.5 % (9.0-44.0); LYMPHOCYTE # 0.4 TH/MM3 (1.0-4.8); MEAN CORPUSCULAR HEMOGLOBIN 25.5 PG (27.0-34.0); MEAN CORPUSCULAR HGB CONC 31.6 % (32.0-36.0); MEAN PLATELET VOLUME 8.8 FL (7.0-11.0); MONO % 7.2 % (0.0-8.0); NEUT % 90.1 % (16.0-70.0); PLATELET COUNT 296 TH/MM3 (150-450); RED BLOOD COUNT 3.81 MIL/MM3 (4.00-5.30); RED CELL DISTRIBUTION WIDTH 15.5 % (11.6-17.2); WHITE BLOOD COUNT 14.3 TH/MM3 (4.0-11.0)
--- NOTE | 2017-07-22 09:59 | PD.ONC.PN ---
Subjective Subjective Remarks Afebrile overnight. patient resting in bed in nad. still with dyspnea with exertion. maintaining saturation on 6L O2 via NC. Patient and are eager to get back to [place]. Objective Data Date Time Temp Pulse Resp B/P (MAP) Pulse Ox O2 Delivery O2 Flow Rate FiO2 07/22/17 09:20 96 Nasal Cannula 6.00 07/22/17 06:03 83 07/22/17 05:03 84 07/22/17 04:05 78 07/22/17 03:50 Nasal Cannula 6.00 07/22/17 03:44 97.7 73 20 117/76 (90) 97 07/22/17 03:06 83 07/22/17 02:10 81 07/22/17 01:00 90 07/22/17 00:17 Nasal Cannula 6.00 07/22/17 00:09 89 07/21/17 23:55 98.3 92 20 135/72 (93) 99 07/21/17 23:02 97 07/21/17 22:47 94 105/55 (72) 07/21/17 22:04 95 07/21/17 21:02 96 07/21/17 20:09 97 Nasal Cannula 6.00 07/21/17 20:00 Nasal Cannula 6.00 07/21/17 20:00 98 07/21/17 19:39 97.6 99 18 113/60 (77) 98 07/21/17 19:03 99 07/21/17 19:00 98 07/21/17 18:00 94 07/21/17 17:05 98.6 97 18 138/75 (96) 96 07/21/17 17:00 94 07/21/17 16:00 84 07/21/17 15:00 94 07/21/17 14:00 90 07/21/17 13:00 90 18 113/75 (88) 99 07/21/17 13:00 88 07/21/17 11:00 98 Nasal Cannula 6.00 07/21/17 11:00 98.7 85 18 130/67 (88) 98 07/21/17 11:00 82 07/22/17 07/22/17 07/22/17 07:00 15:00 23:00 Intake Total 400 ml Output Total 850 ml Balance -450 ml Result Diagram: 07/22/17 0832 07/21/17 0338 Laboratory Results Laboratory Tests Test 07/22/17 08:32 White Blood Count 14.3 TH/MM3 Red Blood Count 3.81 MIL/MM3 Hemoglobin 9.7 GM/DL Hematocrit 30.8 % Mean Corpuscular Volume 81.0 FL Mean Corpuscular Hemoglobin 25.5 PG Mean Corpuscular Hemoglobin Concent 31.6 % Red Cell Distribution Width 15.5 % Platelet Count 296 TH/MM3 Mean Platelet Volume 8.8 FL Neutrophils (%) (Auto) 90.1 % Lymphocytes (%) (Auto) 2.5 % Monocytes (%) (Auto) 7.2 % Eosinophils (%) (Auto) 0.0 % Basophils (%) (Auto) 0.2 % Neutrophils # (Auto) 12.9 TH/MM3 Lymphocytes # (Auto) 0.4 TH/MM3 Monocytes # (Auto) 1.0 TH/MM3 Eosinophils # (Auto) 0.0 TH/MM3 Basophils # (Auto) 0.0 TH/MM3 CBC Comment DIFF FINAL Differential Comment Administered Medications Medications (Trade) Dose Ordered Sig/Jennifer Route PRN Reason Start Time Stop Time Status Last Admin Dose Admin Sodium Chloride (NS Flush) 2 ml UNSCH PRN IV FLUSH FLUSH AFTER USING IV ACCESS 07/14/17 16:30 07/22/17 06:26 Sodium Chloride (NS Flush) 2 ml BID IV FLUSH 07/14/17 21:00 07/22/17 09:28 Albuterol/ Ipratropium (Duoneb Neb) 1 ampule Q2HR NEB PRN NEB dyspnea 07/14/17 17:45 07/15/17 04:25 Cholecalciferol (Vitamin D3) 5,000 units DAILY PO 07/15/17 10:00 07/22/17 09:18 Acetaminophen (Tylenol) 650 mg Q4H PRN PO temp > 100.4 07/15/17 23:00 07/15/17 23:32 Insulin Detemir (Levemir Inj) 10 units BID SQ 07/17/17 10:00 07/22/17 08:37 Guaifenesin (Mucinex Er) 600 mg BID PO 07/17/17 10:00 07/22/17 09:18 Budesonide/ Formoterol Fumarate (Symbicort 160-4.5 Mcg Inh) 2 puff Q12HR INH 07/17/17 21:00 07/22/17 09:18 Insulin Human Regular (NovoLIN R SUPPLEMENTAL SCALE) 1 Q4HR SQ 07/18/17 00:00 07/22/17 03:52 Heparin Sodium (Porcine) (Heparin Inj) 5,000 units Q12HR SQ 07/17/17 21:00 07/22/17 09:19 Metoprolol Tartrate (Lopressor) 25 mg Q12HR PO 07/18/17 10:00 07/22/17 09:18 Cefuroxime Axetil (Ceftin) 250 mg Q12HR PO 07/19/17 21:00 07/24/17 20:59 07/22/17 09:18 Famotidine (Pepcid) 20 mg Q12H PO 07/19/17 18:00 07/22/17 06:24 Methylprednisolone Sodium Succinate (SoluMEDROL INJ) 40 mg Q8HR IV PUSH 07/20/17 09:00 07/22/17 06:24 Objective Remarks GENERAL: Elderly female, upright in bed. SKIN: Warm and dry. HEAD: Normocephalic. EYES: no injection or drainage. NECK: Supple, trachea midline. CARDIOVASCULAR: Regular rate and rhythm. RESPIRATORY: diminished breath sounds posteriorly, occasional rhonchi. on 6L o2 via nc GASTROINTESTINAL: Abdomen soft, non-tender, nondistended. EXTREMITIES: No cyanosis NEUROLOGICAL: awake and alert. normal speech. Assessment/Plan Problem List: (1) Squamous cell lung cancer ICD Codes: C34.90 - Malignant neoplasm of unspecified part of unspecified bronchus or lung Plan: --The patient wishes to initiate all therapy in [place] Hx/Workup: 76-year-old female with a history of ductal carcinoma in situ of the left breast that was diagnosed in 2008. She began to develop shortness of breath approximately a week ago and chest x-ray showed a mass in the right chest measuring 10 x 7 cm. The patient underwent a CT-guided needle biopsy that revealed a squamous cell carcinoma. Assessment 76-year-old female with history of ductal carcinoma in situ left breast with new diagnosis of lung cancer Plan 1. patient's wishes to fly patient to [place] via [place], if possible. will ask case worker to assist in finding out capabilities of [place] 2. continue supportive care. Attending Statement The exam, history, and the medical decision-making described in the above note were completed with the assistance of the mid-level provider. I reviewed and agree with the findings presented. I attest that I had a [id number] encounter with the patient on the same day, and personally performed and documented my assessment and findings in the medical record. No complaints. Eager to go. Mother in law is turning 100 y/o. Eager to see family understanding significance of cancer diagnosis. Contact information provided, if her oncologist has question. OK for DC per oncology standpoint. FU w/ physicians in [place]. Problem Qualifiers (1) Squamous cell lung cancer: Qualified Codes: C34.91 - Malignant neoplasm of unspecified part of right bronchus or lung Erin Giron Jul 22, 2017 09:59 Kathryn Omalley MD Jul 22, 2017 18:25
--- NOTE | 2017-07-22 11:27 | HHI.PR ---
Subjective Remarks Patient transferred from ICU yesterday. She is currently on 6 L nasal cannula. Still dyspneic with exertion but states overall her breathing is better. Discussed with patient and at the bedside. They are eager to go back to [place]. Objective Vitals Vital Signs Date Time Temp Pulse Resp B/P (MAP) Pulse Ox O2 Delivery O2 Flow Rate FiO2 07/22/17 09:20 96 Nasal Cannula 6.00 07/22/17 09:10 98.3 85 18 130/58 (82) 95 07/22/17 06:03 83 07/22/17 05:03 84 07/22/17 04:05 78 07/22/17 03:50 Nasal Cannula 6.00 07/22/17 03:44 97.7 73 20 117/76 (90) 97 07/22/17 03:06 83 07/22/17 02:10 81 07/22/17 01:00 90 07/22/17 00:17 Nasal Cannula 6.00 07/22/17 00:09 89 07/21/17 23:55 98.3 92 20 135/72 (93) 99 07/21/17 23:02 97 07/21/17 22:47 94 105/55 (72) 07/21/17 22:04 95 07/21/17 21:02 96 07/21/17 20:09 97 Nasal Cannula 6.00 07/21/17 20:00 Nasal Cannula 6.00 07/21/17 20:00 98 07/21/17 19:39 97.6 99 18 113/60 (77) 98 07/21/17 19:03 99 07/21/17 19:00 98 07/21/17 18:00 94 07/21/17 17:05 98.6 97 18 138/75 (96) 96 07/21/17 17:00 94 07/21/17 16:00 84 07/21/17 15:00 94 07/21/17 14:00 90 07/21/17 13:00 90 18 113/75 (88) 99 07/21/17 13:00 88 I/O 07/21/17 07/21/17 07/21/17 07/22/17 07/22/17 07/22/17 07:00 15:00 23:00 07:00 15:00 23:00 Intake Total 50 ml 474 ml 400 ml Output Total 650 ml 500 ml 850 ml Balance -600 ml -26 ml -450 ml Intake Oral 50 ml 474 ml 400 ml Output Urine Total 650 ml 500 ml 850 ml Result Diagram: 07/22/17 0832 07/21/17 0338 Objective Remarks GENERAL: Elderly female in mild respiratory distress CARDIOVASCULAR: Normal rate and regular rhythm without murmurs, gallops, or rubs. RESPIRATORY: Diminished breath sounds bilaterally. Faint expiratory wheezing throughout. GASTROINTESTINAL: Abdomen soft, non-tender, non-distended. Normal active bowel sounds MUSCULOSKELETAL: Extremities without cyanosis, or edema. NEURO: Awake and alert. Normal speech A/P Problem List: (1) Respiratory failure with hypoxia ICD Code: J96.91 - Respiratory failure, unspecified with hypoxia Plan: Probably due to combination of lung cancer, underlying COPD. Has required BiPAP during this hospitalization. Transferred back from ICU after she had an acute decline in respiratory status. Currently stable. -Continue IV Solu-Medrol. -Incentive spirometry. - Continue supplemental oxygen. BiPAP as needed. (2) Squamous cell lung cancer ICD Code: C34.90 - Malignant neoplasm of unspecified part of unspecified bronchus or lung Plan: Patient seen by oncologist recommended radiation and chemotherapy. - Patient wishes to get treatment in her home town in [place]. DW case management - Case management on board to help arrange for transport. (3) UTI (urinary tract infection) ICD Code: N39.0 - Urinary tract infection, site not specified Plan: Urine culture growing Klebsiella pneumonia Continue cefuroxime until 07/24 (4) Diabetes ICD Code: E11.9 - Type 2 diabetes mellitus without complications Plan: Continue sliding scale insulin with Accu-Cheks Levemir 10 units subcu twice daily Hemoglobin A1c of 11. Patient counseled on diabetic diet. (5) COPD (chronic obstructive pulmonary disease) ICD Code: J44.9 - Chronic obstructive pulmonary disease, unspecified Plan: Continue IV Solu-Medrol -Appreciate pulmonology input - Continue Symbicort - Continue breathing treatments as needed. (6) Tobacco abuse ICD Code: Z72.0 - Tobacco use Plan: Patient previously counseled on cessation. (7) Acute encephalopathy ICD Code: G93.40 - Encephalopathy, unspecified Plan: Probably secondary to hypercapnia and respiratory failure. - Follow closely with neuro checks. - Check ammonia levels. - Ativan PRN for severe agitation. Discharge Planning Plan to discharge to Hospital in [place] as soon as medical transport can be arranged. Discussed with case management. Problem Qualifiers (1) Respiratory failure with hypoxia: Qualified Codes: J96.01 - Acute respiratory failure with hypoxia (2) Squamous cell lung cancer: Qualified Codes: C34.91 - Malignant neoplasm of unspecified part of right bronchus or lung Jose Nair MD Jul 22, 2017 11:27
--- NOTE | 2017-07-22 19:50 | HHI.PR ---
Subjective Remarks 76 YOWF from [place], with H/O ductal ca breast, large rt lung mass Had CT guided rt lung bx No PTX Breathing better Bx Sq cell ca On 6LNC Anxious to go back to [place] Objective Vital Signs Vital Signs Date Time Temp Pulse Resp B/P (MAP) Pulse Ox O2 Delivery O2 Flow Rate FiO2 07/22/17 15:49 97.9 109 18 118/69 (85) 96 07/22/17 14:00 92 07/22/17 13:00 98.4 86 20 108/54 (72) 95 07/22/17 13:00 82 07/22/17 12:00 88 07/22/17 11:00 82 07/22/17 10:00 88 07/22/17 09:20 96 Nasal Cannula 6.00 07/22/17 09:10 98.3 85 18 130/58 (82) 95 07/22/17 09:09 Nasal Cannula 6.00 Humidified 07/22/17 09:00 88 07/22/17 08:00 82 07/22/17 07:00 83 07/22/17 06:03 83 07/22/17 05:03 84 07/22/17 04:05 78 07/22/17 03:50 Nasal Cannula 6.00 07/22/17 03:44 97.7 73 20 117/76 (90) 97 07/22/17 03:06 83 07/22/17 02:10 81 07/22/17 01:00 90 07/22/17 00:17 Nasal Cannula 6.00 07/22/17 00:09 89 07/21/17 23:55 98.3 92 20 135/72 (93) 99 07/21/17 23:02 97 07/21/17 22:47 94 105/55 (72) 07/21/17 22:04 95 07/21/17 21:02 96 07/21/17 20:09 97 Nasal Cannula 6.00 07/21/17 20:00 Nasal Cannula 6.00 07/21/17 20:00 98 I/O 07/21/17 07/21/17 07/21/17 07/22/17 07/22/17 07/22/17 07:00 15:00 23:00 07:00 15:00 23:00 Intake Total 50 ml 474 ml 400 ml Output Total 650 ml 500 ml 850 ml Balance -600 ml -26 ml -450 ml Intake Oral 50 ml 474 ml 400 ml Output Urine Total 650 ml 500 ml 850 ml Result Diagram: 07/22/17 0832 07/21/17 0338 Objective Remarks GENERAL: WBWN WF,NAD SKIN: Warm and dry. HEAD: Normocephalic. EYES: No scleral icterus. No injection or drainage. NECK: Supple, trachea midline. No JVD or lymphadenopathy. CARDIOVASCULAR: Regular rate and rhythm without murmurs, gallops, or rubs. RESPIRATORY: Breath sounds equal bilaterally. No accessory muscle use. GASTROINTESTINAL: Abdomen soft, non-tender, nondistended. MUSCULOSKELETAL: No cyanosis, or edema. BACK: Nontender without obvious deformity. No CVA tenderness. A/P Assessment and Plan IMPRESSION: 1. Large right upper lobe mass.--Sq cell Ca 2. Pretracheal lymph node. 3. Right shoulder pain. 4. History of nicotine use. 5. Carcinoma of the breast, status post lumpectomy and radiation treatment. PLAN: Seen by Evaluate for home 02 Aerosol nebs Cont Abx Family considering taking her back to [place] or start treatment here Brady Shah MD Jul 22, 2017 19:50
[2017-07-23] VITALS (28 sets, daily range): BP systolic 109–144; BP diastolic 65–92; PULSE 80–110; RESP 16–18; TEMP 97.3–98.5; O2SAT 93–100
[2017-07-23] MEDS: FAMOTIDINE 20 MG TAB PO SCH ×2 (06:21→18:37)
[2017-07-23] MEDS: methylPREDNISolone SOD SUCC 40 MG/1 ML VIAL IV PUSH SCH ×3 (06:21→20:44)
[2017-07-23] MEDS: SODIUM CHLORIDE 0.9% FLUSH 10 ML FLUSH IV FLUSH PRN (06:22)
[2017-07-23] MEDS: BUDESONIDE-FORMOTEROL 160/4.5 MCG INHALER INH SCH ×2 (08:14→20:48)
[2017-07-23] MEDS: guaiFENesin E.R. 600 MG TAB PO SCH ×2 (08:15→20:41)
[2017-07-23] MEDS: INSULIN DETEMIR 100 UNITS/ML VIAL SQ SCH ×2 (08:15→20:42)
[2017-07-23] MEDS: CHOLECALCIFEROL (VIT D3) 5000 UNIT CAP PO SCH (08:15)
[2017-07-23] MEDS: CEFUROXIME AXETIL 250 MG TAB PO SCH ×2 (08:15→20:41)
[2017-07-23] MEDS: METOPROLOL TARTRATE 25 MG TAB PO SCH ×2 (08:15→20:41)
[2017-07-23] MEDS: SODIUM CHLORIDE 0.9% FLUSH 10 ML FLUSH IV FLUSH SCH ×2 (08:15→20:48)
[2017-07-23] MEDS: HEPARIN SODIUM - SQ 10,000 UNITS/ML VIAL SQ SCH ×2 (08:16→20:42)
[2017-07-23] MEDS: INSULIN NovoLIN REGULAR SUPPLEMENTAL SCALE SQ SCH ×4 (08:19→20:46)
--- NOTE | 2017-07-23 13:09 | HHI.PR ---
Subjective Remarks Patient reports she is feeling okay. Breathing status is stable. No pain. Objective Vitals Vital Signs Date Time Temp Pulse Resp B/P (MAP) Pulse Ox O2 Delivery O2 Flow Rate FiO2 07/23/17 12:00 96 07/23/17 11:25 98.0 93 16 109/67 (81) 100 07/23/17 11:25 100 Nasal Cannula 6.00 07/23/17 11:00 88 07/23/17 10:00 80 07/23/17 08:32 97 Nasal Cannula 6.00 07/23/17 07:28 97.3 97 16 143/92 (109) 99 07/23/17 07:00 89 07/23/17 06:01 95 07/23/17 05:06 92 07/23/17 04:06 105 07/23/17 03:45 Nasal Cannula 6.00 Humidified 07/23/17 03:41 97.4 96 18 116/66 (83) 100 07/23/17 03:03 94 07/23/17 02:08 91 07/23/17 01:02 90 07/23/17 00:21 97.6 85 18 118/71 (87) 99 07/23/17 00:02 83 07/23/17 00:00 Nasal Cannula 6.00 Humidified 07/22/17 23:08 93 07/22/17 22:00 95 07/22/17 21:25 97.9 103 18 129/69 (89) 96 07/22/17 21:06 96 07/22/17 20:01 109 07/22/17 20:00 Nasal Cannula 6.00 Humidified 07/22/17 19:02 102 07/22/17 19:00 102 07/22/17 18:00 96 07/22/17 17:00 94 07/22/17 16:00 100 07/22/17 15:49 97.9 109 18 118/69 (85) 96 07/22/17 15:00 90 07/22/17 14:00 92 I/O 07/22/17 07/22/17 07/22/17 07/23/17 07/23/17 07/23/17 07:00 15:00 23:00 07:00 15:00 23:00 Intake Total 400 ml 480 ml 120 ml Output Total 850 ml 1100 ml 350 ml Balance -450 ml -620 ml -230 ml Intake Oral 400 ml 480 ml 120 ml Output Urine Total 850 ml 1100 ml 350 ml # Bowel Movements 1 Result Diagram: 07/22/17 0832 07/21/17 0338 Objective Remarks GENERAL: Elderly female in mild respiratory distress CARDIOVASCULAR: Normal rate and regular rhythm without murmurs, gallops, or rubs. RESPIRATORY: Diminished breath sounds bilaterally. Faint expiratory wheezing throughout. GASTROINTESTINAL: Abdomen soft, non-tender, non-distended. Normal active bowel sounds MUSCULOSKELETAL: Extremities without cyanosis, or edema. NEURO: Awake and alert. Normal speech A/P Problem List: (1) Respiratory failure with hypoxia ICD Code: J96.91 - Respiratory failure, unspecified with hypoxia Plan: Probably due to combination of lung cancer, underlying COPD. Has required BiPAP during this hospitalization. Transferred back from ICU after she had an acute decline in respiratory status. Currently stable. -Continue IV Solu-Medrol. -Incentive spirometry. - Continue supplemental oxygen. BiPAP as needed. (2) Squamous cell lung cancer ICD Code: C34.90 - Malignant neoplasm of unspecified part of unspecified bronchus or lung Plan: Patient seen by oncologist recommended radiation and chemotherapy. - Patient wishes to get treatment in her home town in [place]. DW case management - Case management on board to help arrange for transport. - I discussed with oncologist, Dr. Chopra at the [facility]. He accepted the patient. Case management working on transport. (3) UTI (urinary tract infection) ICD Code: N39.0 - Urinary tract infection, site not specified Plan: Urine culture growing Klebsiella pneumonia Continue cefuroxime until 07/24 (4) Diabetes ICD Code: E11.9 - Type 2 diabetes mellitus without complications Plan: Continue sliding scale insulin with Accu-Cheks Levemir 10 units subcu twice daily Hemoglobin A1c of 11. Patient counseled on diabetic diet. (5) COPD (chronic obstructive pulmonary disease) ICD Code: J44.9 - Chronic obstructive pulmonary disease, unspecified Plan: Continue IV Solu-Medrol -Appreciate pulmonology input - Continue Symbicort - Continue breathing treatments as needed. (6) Tobacco abuse ICD Code: Z72.0 - Tobacco use Plan: Patient previously counseled on cessation. Discharge Planning Plan to discharge to Hospital in [place] as soon as medical transport can be arranged. Discussed with case management. Problem Qualifiers (1) Respiratory failure with hypoxia: Qualified Codes: J96.01 - Acute respiratory failure with hypoxia (2) Squamous cell lung cancer: Qualified Codes: C34.91 - Malignant neoplasm of unspecified part of right bronchus or lung Jose Nair MD Jul 23, 2017 13:09
[2017-07-23] MEDS: RESP: ALBUTEROL 2.5 MG/IPRATROPIUM 0.5 MG NEB (PRN) NEB (20:24)
--- NOTE | 2017-07-23 21:34 | HHI.PR ---
Subjective Remarks 76 YOWF from [place], with H/O ductal ca breast, large rt lung mass Had CT guided rt lung bx No PTX Breathing better Bx Sq cell ca On 6LNC Anxious to go back to [place] No new complaint Objective Vital Signs Vital Signs Date Time Temp Pulse Resp B/P (MAP) Pulse Ox O2 Delivery O2 Flow Rate FiO2 07/23/17 20:25 98 Nasal Cannula 5.00 07/23/17 18:00 102 07/23/17 17:00 98 07/23/17 16:00 102 07/23/17 15:35 97.6 99 16 122/65 (84) 99 07/23/17 15:00 96 07/23/17 14:00 96 07/23/17 13:00 96 07/23/17 12:00 96 07/23/17 11:25 98.0 93 16 109/67 (81) 100 07/23/17 11:25 100 Nasal Cannula 6.00 07/23/17 11:00 88 07/23/17 10:00 80 07/23/17 08:32 97 Nasal Cannula 6.00 07/23/17 07:28 97.3 97 16 143/92 (109) 99 07/23/17 07:00 89 07/23/17 06:01 95 07/23/17 05:06 92 07/23/17 04:06 105 07/23/17 03:45 Nasal Cannula 6.00 Humidified 07/23/17 03:41 97.4 96 18 116/66 (83) 100 07/23/17 03:03 94 07/23/17 02:08 91 07/23/17 01:02 90 07/23/17 00:21 97.6 85 18 118/71 (87) 99 07/23/17 00:02 83 07/23/17 00:00 Nasal Cannula 6.00 Humidified 07/22/17 23:08 93 07/22/17 22:00 95 I/O 07/22/17 07/22/17 07/22/17 07/23/17 07/23/17 07/23/17 07:00 15:00 23:00 07:00 15:00 23:00 Intake Total 400 ml 480 ml 120 ml 450 ml Output Total 850 ml 1100 ml 350 ml 500 ml Balance -450 ml -620 ml -230 ml -50 ml Intake Oral 400 ml 480 ml 120 ml 450 ml Output Urine Total 850 ml 1100 ml 350 ml 500 ml # Bowel Movements 1 0 Result Diagram: 07/22/17 0832 07/21/17 0338 Objective Remarks GENERAL: WBWN WF,NAD SKIN: Warm and dry. HEAD: Normocephalic. EYES: No scleral icterus. No injection or drainage. NECK: Supple, trachea midline. No JVD or lymphadenopathy. CARDIOVASCULAR: Regular rate and rhythm without murmurs, gallops, or rubs. RESPIRATORY: Breath sounds equal bilaterally. No accessory muscle use. GASTROINTESTINAL: Abdomen soft, non-tender, nondistended. MUSCULOSKELETAL: No cyanosis, or edema. BACK: Nontender without obvious deformity. No CVA tenderness. A/P Assessment and Plan IMPRESSION: 1. Large right upper lobe mass.--Sq cell Ca 2. Pretracheal lymph node. 3. Right shoulder pain. 4. History of nicotine use. 5. Carcinoma of the breast, status post lumpectomy and radiation treatment. PLAN: Aerosol nebs Cont Abx Family considering taking her back to [place] or start treatment here Brady Shah MD Jul 23, 2017 21:34
[2017-07-24] VITALS (10 sets, daily range): BP systolic 115–146; BP diastolic 67–86; PULSE 82–92; RESP 16–19; TEMP 97.6–98.3; O2SAT 92–95
[2017-07-24] MEDS: methylPREDNISolone SOD SUCC 40 MG/1 ML VIAL IV PUSH SCH (05:07)
[2017-07-24] MEDS: FAMOTIDINE 20 MG TAB PO SCH (05:07)
[2017-07-24] MEDS: INSULIN NovoLIN REGULAR SUPPLEMENTAL SCALE SQ SCH ×2 (08:00→12:00)
[2017-07-24] MEDS: HEPARIN SODIUM - SQ 10,000 UNITS/ML VIAL SQ SCH (09:41)
[2017-07-24] MEDS: SODIUM CHLORIDE 0.9% FLUSH 10 ML FLUSH IV FLUSH SCH (09:42)
[2017-07-24] MEDS: CHOLECALCIFEROL (VIT D3) 5000 UNIT CAP PO SCH (09:42)
[2017-07-24] MEDS: CEFUROXIME AXETIL 250 MG TAB PO SCH (09:42)
[2017-07-24] MEDS: guaiFENesin E.R. 600 MG TAB PO SCH (09:42)
[2017-07-24] MEDS: INSULIN DETEMIR 100 UNITS/ML VIAL SQ SCH (09:42)
[2017-07-24] MEDS: METOPROLOL TARTRATE 25 MG TAB PO SCH (09:42)
[2017-07-24] MEDS: BUDESONIDE-FORMOTEROL 160/4.5 MCG INHALER INH SCH (09:42)
[2017-07-24] MEDS ORDERED: METO25TA3 PO (10:25)
[2017-07-24] MEDS ORDERED: Budeson-Formot 160-4.5 Mcg Inh INH (10:25)
[2017-07-24] MEDS ORDERED: NOVORP2 SQ (10:25)
[2017-07-24] MEDS ORDERED: FAMO20TA2 PO (10:25)
--- NOTE | 2017-07-24 10:37 | HHI.DS ---
Discharge Summary Admission Date Jul 14, 2017 at 14:32 Discharge Date: Jul 24, 2017 Admitting Diagnosis LUNG MASS, DYSPNEA (1) Respiratory failure with hypoxia ICD Code: J96.91 - Respiratory failure, unspecified with hypoxia (2) Squamous cell lung cancer ICD Code: C34.90 - Malignant neoplasm of unspecified part of unspecified bronchus or lung (3) UTI (urinary tract infection) ICD Code: N39.0 - Urinary tract infection, site not specified (4) Diabetes ICD Code: E11.9 - Type 2 diabetes mellitus without complications (5) COPD (chronic obstructive pulmonary disease) ICD Code: J44.9 - Chronic obstructive pulmonary disease, unspecified (6) Tobacco abuse ICD Code: Z72.0 - Tobacco use Procedures CT-guided lung biopsy Brief History - From Admission HPI from the admission This is a pleasant 76-year-old female patient with a known medical history of left breast cancer with radiation and lumpectomy who presented to the ED with complaints of shortness of breath for the last 3 days. Patient states that she has actually had right shoulder pain for the past few weeks, has been seeing a chiropractor and getting adjustments with no relief of pain. She also states that over the past few days she has developed a productive cough with white/ yellow phlegm and increasing dyspnea with activity. Patient does not use oxygen at home. Patient denies any recent illness including fever, chills, abdominal pain, nausea, vomiting, diarrhea dysuria. Patient and her are down here visiting from [place], patient last saw her PCP in February with no reports of any medication changes. Patient does admit to a history of left breast cancer with radiation and lumpectomy 10 years ago. Patient no longer follows with oncologist. Denies any current tobacco use, states she quit roughly a year ago. CBC/BMP: 07/22/17 0832 07/21/17 0338 Significant Findings Laboratory Tests Test 07/22/17 08:32 White Blood Count 14.3 TH/MM3 (4.0-11.0) Red Blood Count 3.81 MIL/MM3 (4.00-5.30) Hemoglobin 9.7 GM/DL (11.6-15.3) Hematocrit 30.8 % (35.0-46.0) Mean Corpuscular Hemoglobin 25.5 PG (27.0-34.0) Mean Corpuscular Hemoglobin Concent 31.6 % (32.0-36.0) Neutrophils (%) (Auto) 90.1 % (16.0-70.0) Lymphocytes (%) (Auto) 2.5 % (9.0-44.0) Neutrophils # (Auto) 12.9 TH/MM3 (1.8-7.7) Lymphocytes # (Auto) 0.4 TH/MM3 (1.0-4.8) Monocytes # (Auto) 1.0 TH/MM3 (0-0.9) Imaging Last Impressions Chest X-Ray 07/20/17 0000 Signed Impressions: Service Date/Time: Thursday, July 20, 2017 07:36 - CONCLUSION: Stable right upper lobe mass. Elevation of the right hemidiaphragm. Kit Alcaraz MD CT Angiography 07/17/17 0000 Signed Impressions: Service Date/Time: June 14:06 - CONCLUSION: 1. No evidence of pulmonary embolism. 2. Stable large right upper lobe mass and probable bronchogenic carcinoma as well as stable mediastinal and right hilar lymphadenopathy and tiny pleural-based right upper lobe nodule measuring 6 mm. 3. Small right pleural effusion. 4. Peripheral subpleural emphysematous changes and fibrotic scarring bilaterally. 5. Cardiomegaly. 6. Mild compression deformity involving T7 and minimal compression deformity involving T11 of indeterminate ages. 7. Degenerative changes and scoliosis of the thoracic spine. Kit Alcaraz MD Lung Biopsy CT 07/16/17 0000 Signed Impressions: Service Date/Time: Sunday, July 16, 2017 09:21 - CONCLUSION: Uncomplicated CT guided biopsy. Lewis Villa MD Head CT 07/16/17 0000 Signed Impressions: Service Date/Time: Sunday, July 16, 2017 14:28 - CONCLUSION: Normal examination. Júnior Rose MD Chest CT 07/15/17 0000 Signed Impressions: Service Date/Time: Saturday, July 15, 2017 00:48 - CONCLUSION: Right upper lung mass measures in excess of 10 cm and is highly suspicious for malignancy. There is also a 4 cm pretracheal mediastinal mass. Sravan Blanco MD PE at Discharge GENERAL: Elderly female in mild respiratory distress CARDIOVASCULAR: Normal rate and regular rhythm without murmurs, gallops, or rubs. RESPIRATORY: Diminished breath sounds bilaterally. Faint expiratory wheezing throughout. GASTROINTESTINAL: Abdomen soft, non-tender, non-distended. Normal active bowel sounds MUSCULOSKELETAL: Extremities without cyanosis, or edema. NEURO: Awake and alert. Normal speech Pt update on day of discharge Patient reports she is feeling okay. Still requiring 5 L nasal cannula. Anxious to go back to [place] for cancer treatment. Hospital Course 76-year-old female who presented to the hospital with shortness of breath. The patient was admitted and underwent extensive workup which revealed squamous cell lung cancer. She was followed by oncology who recommended palliative radiation and chemotherapy. However the patient opted to return home to [place] for treatment. Respiratory failure persisted due to underlying lung cancer. Patient requires hospital to hospital transfer. I discussed the case with oncologist DR. CLIFTON at the [facility] in [place]. The patient is to be transported medically by air. Evaluation and treatment course during her hospital stay is detailed below: (1) Respiratory failure with hypoxia ICD Code: J96.91 - Respiratory failure, unspecified with hypoxia Plan: Probably due to combination of lung cancer, underlying COPD. Has required BiPAP during this hospitalization. Transferred to and from ICU after she had an acute decline in respiratory status. Currently stable. - Continue IV Solu-Medrol for now. - Incentive spirometry. - Continue supplemental oxygen. (2) Squamous cell lung cancer ICD Code: C34.90 - Malignant neoplasm of unspecified part of unspecified bronchus or lung Plan: Patient seen by oncologist recommended radiation and chemotherapy. - Patient wishes to get treatment in her home town in [place]. - Case management on board to help arrange for transport. - I discussed with oncologist, Dr. Chopra at the [facility]. He accepted the patient. (3) UTI (urinary tract infection) ICD Code: N39.0 - Urinary tract infection, site not specified Plan: Urine culture growing Klebsiella pneumonia Patient completed treatment with Cefuroxime (4) Diabetes ICD Code: E11.9 - Type 2 diabetes mellitus without complications Plan: Continue sliding scale insulin with Accu-Cheks Levemir 10 units subcu twice daily Hemoglobin A1c of 11. Patient counseled on diabetic diet. (5) COPD (chronic obstructive pulmonary disease) ICD Code: J44.9 - Chronic obstructive pulmonary disease, unspecified Plan: Continue IV Solu-Medrol -Appreciate pulmonology input - Continue Symbicort - Continue breathing treatments as needed. (6) Tobacco abuse ICD Code: Z72.0 - Tobacco use Plan: Patient previously counseled on cessation. Pt Condition on Discharge: Stable Discharge Disposition: Disch to Another Hospital Discharge Time: > 30 minutes Discharge Instructions New Medications: Insulin Detemir Inj (Levemir Flextouch Pen Inj) 300 unit/3 ML Pen 10 UNITS SQ HS for Blood Sugar Management for 30 Days, #1 PEN 0 Refills Famotidine (Famotidine) 20 Mg Tab 20 MG PO Q12H, #30 TAB Insulin Human Regular Inj (Novolin R Inj) 1,000 Unit/10 Ml Vial 1 UNIT SQ ACHS SLIDING SCALE, #1 INJECTION Metoprolol Tartrate (Metoprolol Tartrate) 25 Mg Tab 25 MG PO Q12HR, #60 TAB [Budeson-Formot 160-4.5 Mcg Inh] () 60 PUFF AERO 2 PUFF INH Q12HR, #1 INH Continued Medications: Aspirin (Aspirin) 81 Mg Chew 81 MG CHEW DAILY, TAB 0 Refills Cholecalciferol (Vitamin D3) 5,000 Unit Cap 5000 UNITS PO DAILY for Nutritional Supplement, #30 CAP 0 Refills Lovastatin (Lovastatin) 10 Mg Tab Unknown Dose PO DAILY for Cholesterol Management, #30 TAB 0 Refills Jose Nair MD Jul 24, 2017 10:37
== END 2017-07-24 15:00 | disposition short-term general hospital (02) | DRG 180 ==
LOC: PHED 13:22 → PHEDA 14:32 → PHEDH 22:53 → PH3A 07-15 03:07 → HIMW 07-17 16:00 → HCIN 07-19 03:11 → HCVI 07-20 10:49 → HCIN 07-21 12:41
PROVIDERS: ADMIT Family Medicine; ATTEND Family Medicine
PROC: 0BBK3ZX Excision of Right Lung, Percutaneous Approach, Diagnostic (ICD-10-PCS; principal; 2017-07-16)
PROC: 5A09357 Assistance with Respiratory Ventilation, Less than 24 Consecutive Hours, Continuous Positive Airway Pressure (ICD-10-PCS; 2017-07-20)
DX: C34.11 Malignant neoplasm of upper lobe, right bronchus or lung (principal); J96.01 Acute respiratory failure with hypoxia; G93.49 Other encephalopathy; E87.2 Acidosis; N39.0 Urinary tract infection, site not specified; E11.65 Type 2 diabetes mellitus with hyperglycemia; B96.1 Klebsiella pneumoniae [K. pneumoniae] as the cause of diseases classified elsewhere; E87.6 Hypokalemia; E66.9 Obesity, unspecified; E78.5 Hyperlipidemia, unspecified; J44.9 Chronic obstructive pulmonary disease, unspecified; D64.9 Anemia, unspecified; Z85.3 Personal history of malignant neoplasm of breast; Z92.3 Personal history of irradiation; Z87.891 Personal history of nicotine dependence
CPT/HCPCS: 32405; 36600; 70450; 71045; 71250; 71275; 77012; 80048; 80053; 81001; 82805; 82947; 82948; 83036; 83605; 83735; 83880; 84100; 84484; 85025; 85610; 85730; 87077; 87086; 87186; 87641; 88305; 88341; 93005; 94002; 94003; 94150; 94640; 94664; 99152; 99153; 99223; 99285; J0696; J1120; J1644; J1815; J2250; J2543; J2920; J3010; J7030; J7512; Q9967